=== PATIENT | female | born 1965 | race Caucasian/White ===

== ENCOUNTER → 2019-12-18 08:43 | Outpatient (BNV) | payer BC, OTHER, SELFPAY | PROVIDERS: PCP Internal Medicine; Visit Provider Internal Medicine Medical Oncology | DX: Z85.3 Personal history of malignant neoplasm of breast (principal) | CPT/HCPCS: 99213; 99214 ==

== ENCOUNTER 2020-01-04 13:32 | Outpatient (REF) | payer BC, SELFPAY ==
--- NOTE | 2020-01-04 13:37 | MM_ITS ---
EXAMINATION: BONE DENSITOMETRY CLINICAL INDICATION: Osteopenia. COMPARISON: Previous BD dated 08/02/2017 and baseline BD dated 11/07/2012. TECHNIQUE: Using a [employer] DXA System (software version: 13.1) manufactured by [employer], dual-energy x-ray absorptiometry was performed of the lumbar spine and left hip. The images are of good technical quality. Summary results are attached. FINDINGS: AP SPINE L1-L4: Current: BMD 1.258 g/cm2, Z-score 0.7, T-score 0.6, normal, 4.8% increase from previous, 0.6% increase from baseline (<5% change is not significant). Prior: BMD 1.200 g/cm2. Baseline: BMD 1.251 g/cm2. LEFT FEMUR, NECK: Current: BMD 0.836 g/cm2, Z-score -0.9, T-score -1.5, osteopenia. Prior: BMD 0.829 g/cm2. Baseline: BMD 0.871 g/cm2. LEFT FEMUR, TOTAL: Current: BMD 0.848 g/cm2, Z-score -1.1, T-score -1.3, osteopenia, 1.9% increase from previous, 0.4% decrease from baseline (<5% change is not significant). Prior: BMD 0.832 g/cm2. Baseline: BMD 0.851 g/cm2. IDENTIFIED RISK FACTORS: None listed. HISTORY OF FRACTURE: None listed. MEDICATIONS: Vitamin D. MM/XR DEXA axial skeleton IMPRESSION: 1. DIAGNOSIS: Osteopenia based on the lowest T-score value of -1.5 in the femoral neck applying World Health Organization criteria. 2. 10-YEAR FRACTURE RISK PREDICTION, FRAX: Major osteoporotic fracture (clinical spine, forearm, hip or shoulder) 6.4%. Hip fracture 0.5%. 3. Treatment Recommendations: NOF guidelines recommend consideration for treatment in postmenopausal women and men age 50 and older presenting with the following: -A hip or vertebral (clinical or morphometric) fracture. -T-score less than or equal to -2.5 at the femoral neck or spine after appropriate evaluation to exclude secondary causes. -Low bone mass at the hip or spine and a 10-year fracture probability by FRAX of greater than or equal to 3% for hip fracture or greater than or equal to 20% for major osteoporotic fracture based on the [place] adapted WHO algorithm. 4. Other Recommendations: All treatment decisions require clinical judgment and consideration of individual patient factors, including patient preferences, comorbidities, previous drug use, risk factors not captured in the FRAX model (e.g. frailty, falls, vitamin D deficiency, increased bone turnover, interval significant decline in bone density) and possible under or overestimation of fracture risk by FRAX. Additional medical evaluation for secondary cause of low bone mineral density may be appropriate. FUTURE SCAN RECOMMENDATION: People with diagnosed cases of osteoporosis or at high risk for fracture should have regular bone mineral density tests. For patients eligible for Medicare, routine testing is allowed once every 2 years. The testing frequency can be increased to one year for patients who have rapidly progressing disease, those who are receiving or discontinuing medical therapy to restore bone mass, or have additional risk factors.
--- NOTE | 2020-01-04 13:38 | MM_ITS ---
EXAMINATION: MM SCREENING DIGITAL BREAST TOMOSYNTHESIS, BILATERAL CLINICAL INFORMATION: Screening. Asymptomatic. Previous left breast lumpectomy COMPARISON: Mammography: August 15, 2018 and studies dating back to June 21, 2012 TECHNIQUE: Digital breast tomosynthesis is performed in both the craniocaudal and mediolateral oblique views along with computer-aided detection (CAD). Synthesized 2D images are generated from the tomosynthesis. FINDINGS: There are scattered areas of fibroglandular density (ACR BI-RADS breast composition Category b). Region of architectural distortion from previous lumpectomy is seen upper outer aspect of the left breast. No new abnormal dominant mass or suspicious grouping of microcalcifications identified. MM/MM tomosynthesis screening BI IMPRESSION: There are no significant changes from prior study. ASSESSMENT: BI-RADS 2: Benign RECOMMENDATION: Routine annual mammography screening. This patient's information was entered into a reminder system with a target due date for their next mammogram.
== END 2020-01-04 13:33 | disposition home or self-care (01) ==
LOC: HO.MAMMO 13:32
PROVIDERS: PCP Internal Medicine; Visit Provider Internal Medicine Medical Oncology
DX: M85.89 Other specified disorders of bone density and structure, multiple sites (principal)
CPT/HCPCS: 77063; 77067; 77080

== ENCOUNTER 2020-05-29 14:30 | Inpatient (IN) | payer OTHER, SELFPAY ==
[2020-05-29] VITALS (8 sets, daily range): BP systolic 118–202; BP diastolic 80–110; PULSE 54–118; RESP 16–18; TEMP 36.3–36.6; O2SAT 95–99; BMI 27.2
--- NOTE | ~2020-05-29 | MR_ITS ---
EXAMINATION: MR BRAIN WITHOUT AND WITH CONTRAST CLINICAL INFORMATION: Right frontoparietal cortical lesion on CT scan. COMPARISON: CT angiogram of the head and neck 05/29/2020. TECHNIQUE: Multiplanar MR imaging of the brain was performed without and with contrast. A total of 9 mL Gadavist was utilized for this examination. FINDINGS: There are scattered nonspecific foci of T2 FLAIR signal hyperintensity within the periventricular white matter. A collection of a few somewhat prominent perivascular spaces are visualized within the basal ganglia. No acute territorial infarct. No pathological magnetic susceptibility artifact. Intracranial vascular flow voids are maintained. Postcontrast images reveal no abnormal mass or enhancement within the intracranial compartment. No intracranial mass effect or midline shift. Lateral and third ventricles are proportionate to the subarachnoid spaces. No hydrocephalus. Midline structures including the cervicomedullary junction are normal. No acute bone marrow signal changes. There is a small right mastoid tip effusion. Mild paranasal sinus disease primarily affecting the ethmoid air cells. Globes and orbits are symmetric. MR/MR head/brain wo/w con IMPRESSION: There are scattered chronic small vessel ischemic changes within the periventricular white matter. Otherwise unremarkable examination. No evidence of acute territorial infarct or hemorrhage. No abnormal intracranial mass or enhancement.
--- NOTE | ~2020-05-29 | CT_ITS ---
EXAMINATION: CT ANGIOGRAM OF THE HEAD CT ANGIOGRAM OF THE NECK CLINICAL INFORMATION: Dizziness. Assess for stroke. COMPARISON: CT scan of the head 08/19/2015. TECHNIQUE: A noncontrast CT scan of the head was obtained. Test bolus series followed by intravenous administration 70 mL of Omnipaque 350. Helical imaging was performed in the axial plane from the mediastinum to the skull vertex. The degree of stenosis is based off NASCET criteria. The data was processed at the generation technologist workstation for generation of MIP images. Three-dimensional volume rendered reformatted images were also generated at an offline 3-D workstation. This CT examination was performed using dose optimization techniques as appropriate, variously including the following: *Automated exposure control *Adjustment of mA and/or kV according to patient size (this includes techniques or standardized protocols for targeted exams where dose is matched to indication/reason for exam; i.e. extremities or head) *Use of iterative reconstruction technique DLP: 2377 mGy-cm. FINDINGS: CT Head: There is no evidence of acute intracranial hemorrhage or territorial infarction. No abnormal mass-effect or midline shift is seen. Fernandes to white matter differentiation is well preserved. No extra-axial fluid collections are identified. There is no abnormal enhancement. The ventricles and sulci appear normal. There are areas of low-attenuation in the right basal ganglia, consistent with multiple prominent perivascular spaces versus lacunar infarcts; these were present on the prior study. The osseous structures and soft tissues are normal. The mastoid air cells and visualized portions of the paranasal sinuses are well-aerated. CTA Neck: There is a classic configuration of the arch of the aorta. Evaluation of the thoracic inlet is degraded by beam hardening artifact from dense contrast in the left brachiocephalic and subclavian veins. Superior to this the common carotid arteries are patent bilaterally. The carotid bifurcations appear normal. The cervical internal carotid arteries are slightly tortuous, but have uniform caliber and are patent throughout the neck. The origins of both vertebral arteries are well-demonstrated. The left vertebral artery is dominant. Both vertebral arteries are patent throughout their cervical course. Nonvascular: The visualized lung cunha are well-aerated. The thyroid gland appears normal. There is no cervical lymphadenopathy. There is a 0.5 cm calcification in the left floor of mouth anteriorly, which may be consistent with a sialolith. There is a degenerative anterolisthesis of C3 on C4. There are multilevel spondylitic and facet arthropathic changes in the cervical spine. There are degenerative changes of the bilateral temporomandibular joints. CTA Head: In the anterior circulation, the distal internal carotid arteries within the neck appear normal. The intracranial internal carotid arteries and their bifurcations appear normal. The middle and anterior cerebral arteries bilaterally demonstrate normal caliber with no evidence of focal stenosis, aneurysm or vascular malformation. There is normal arborization of the middle cerebral artery branches. The anterior communicating artery is normal. In the posterior circulation, the left vertebral artery is dominant. The nondominant right vertebral artery ends primarily in the PICA, with a thin but uniform caliber artery extending to the basilar artery. The basilar artery appears normal. The posterior cerebral arteries have normal caliber. The venous sinuses opacify normally. CT/CT angio head neck IMPRESSION: CT head and neck: 1. There are no acute bleeds or infarcts. There are no masses or areas of abnormal enhancement. 2. There is a 0.5 cm calcification in the left floor of mouth, which may be consistent with a sialolith. 3. There are multilevel spondylitic and facet arthropathic changes in the cervical spine. There are degenerative changes of the bilateral temporomandibular joints. CTA head and neck: 1. There are no flow-limiting stenoses or atheromatous calcifications in the cervical vascular structures. 2. Intracranially the right vertebral artery is relatively thin, and ends in the PICA. 3. There are no focal stenoses, aneurysms or vascular malformations.
[2020-05-29 16:32] LABS: Basophils Percent Auto 0.5 % (0-2); Hemoglobin 14.1 g/dl (12.0-16.0); Imm Gran Abs Auto 0.02 X10*3/uL (0.00-0.03); Imm Gran Pct Auto 0.3 % (0.0-0.4); Lymphocytes Absolute Auto 0.3 X10*3/uL (1.2-4.9); MANUAL DIFF FLAG SCAN; Mean Corpuscular HGB Conc 33.6 g/dl (31.0-35.0); Mean Corpuscular Volume 83.5 fL (80-98); Mean Platelet Volume 10.6 fL (9.4-12.3); Monocytes Absolute Auto 0.2 X10*3/uL (0.1-1.2); Monocytes Percent Auto 3.1 % (2-11); Neutrophils Absolute Auto 5.7 X10*3/uL (2.0-8.3); Neutrophils Percent Auto 91.1 % (45-73); Platelet Count 165 X10*3/uL (160-400); Red Blood Count 5.03 X10*6/uL (4.20-5.50); Red Cell Distribution Width 13.2 % (11.0-16.0); SCAN SMEAR FLAG 1; White Blood Count 6.2 X10*3/uL (4.8-10.8)
[2020-05-29 16:49] LABS: SLIDE REVIEW VERIFIED
[2020-05-29 16:52] LABS: Alanine Aminotransferase 21 U/L (0-31); Albumin Level 4.3 g/dL (3.5-5.0); Alkaline Phosphatase 61 U/L (39-117); Anion Gap 13 (12-20); Aspartate Amino Transferase 21 U/L (5-31); Bilirubin Total 0.8 mg/dL (0.0-1.0); Blood Urea Nitrogen 14 mg/dL (9-16); Carbon Dioxide 22 mmol/L (22-29); Chloride 103 mmol/L (96-108); Creatinine Clr Calc Pharmacy 106.8; Estimated Glomerular Filt Rate > 60; Glucose Random 129 mg/dL (60-115); Potassium 4.3 mmol/L (3.3-5.1); Sodium 134 mmol/L (135-145); Total Protein 7.6 g/dL (6.5-8.0)
[2020-05-29 16:58] LABS: Troponin-I High Sensitivity < 3.5 ng/L (<3.5-17.0)
[2020-05-29 17:02] LABS: Prothrombin Time 11.7 SEC (10.8-13.0)
[2020-05-29] MEDS: Meclizine HCl 25 MG TABLET 50 MG PO (18:52)
[2020-05-29] MEDS: 0.9 % Sodium Chloride 1,000 ML 999 ML IV ×2 (18:53→20:52)
[2020-05-29] MEDS: Metoclopramide HCl 10 MG/2 ML VIAL IVPUSH (18:53)
--- NOTE | 2020-05-29 18:56 | PC.NURSE ---
pt a&ox3, iv inserted, orthostats performed, playground monitor nsr to st- [id number] at times, vitals stable, medicated per order, call painting within reach, will continue to monitor.
--- NOTE | 2020-05-29 19:34 | PC.NURSE ---
Pt using commode at this time, with 1 assist from staff. Reports dizziness, but also reports that dizziness has decreased after being medicated and isn't as bad as it was before . Urine specimen to be collected and sent for analysis. Repeat bloodwork to also be collected.
[2020-05-29 19:47] LABS: Basophils Percent Auto 0.4 % (0-2); Hematocrit 41.6 % (37-47); Hemoglobin 13.8 g/dl (12.0-16.0); Imm Gran Abs Auto 0.01 X10*3/uL (0.00-0.03); Imm Gran Pct Auto 0.2 % (0.0-0.4); Lymphocytes Absolute Auto 0.3 X10*3/uL (1.2-4.9); Lymphocytes Percent Auto 5.9 % (20-40); MANUAL DIFF FLAG SCAN; Mean Corpuscular HGB Conc 33.2 g/dl (31.0-35.0); Mean Corpuscular Hemoglobin 27.7 pg (27.0-33.0); Mean Corpuscular Volume 83.5 fL (80-98); Mean Platelet Volume 10.5 fL (9.4-12.3); Monocytes Absolute Auto 0.1 X10*3/uL (0.1-1.2); Monocytes Percent Auto 2.9 % (2-11); Neutrophils Absolute Auto 4.4 X10*3/uL (2.0-8.3); Neutrophils Percent Auto 90.6 % (45-73); Platelet Count 159 X10*3/uL (160-400); Red Blood Count 4.98 X10*6/uL (4.20-5.50); Red Cell Distribution Width 13.2 % (11.0-16.0); SCAN SMEAR FLAG 1; White Blood Count 4.9 X10*3/uL (4.8-10.8)
[2020-05-29 19:52] LABS: Glucose Urine UA NEG (NEG); Leukocyte Esterase Urine NEG (NEG); Nitrite Urine NEG (NEG); PH 6.5 (5.0-8.0); Specific Gravity - Urine 1.025 (1.005-1.025); Urine Blood NEG (NEG); Urine Ketones NEG (NEG); Urine Protein NEG (NEG-TRACE)
[2020-05-29 19:54] LABS: Appearance Urine CLEAR; Color Urine YELLOW
[2020-05-29 19:56] LABS: Prothrombin Time 11.9 SEC (10.8-13.0)
[2020-05-29 20:07] LABS: Alanine Aminotransferase 23 U/L (0-31); Albumin Level 4.1 g/dL (3.5-5.0); Alkaline Phosphatase 57 U/L (39-117); Anion Gap 14 (12-20); Aspartate Amino Transferase 19 U/L (5-31); Bilirubin Total 0.8 mg/dL (0.0-1.0); Blood Urea Nitrogen 13 mg/dL (9-16); Calcium 8.6 mg/dL (8.4-10.2); Carbon Dioxide 22 mmol/L (22-29); Chloride 105 mmol/L (96-108); Creatinine Clr Calc Pharmacy 114.8; Estimated Glomerular Filt Rate > 60; Glucose Random 111 mg/dL (60-115); Magnesium 1.9 mg/dL (1.6-2.6); Sodium 137 mmol/L (135-145); Total Protein 7.1 g/dL (6.5-8.0)
[2020-05-29 20:12] LABS: Troponin-I High Sensitivity < 3.5 ng/L (<3.5-17.0)
--- NOTE | 2020-05-29 20:30 | ECG_ITS ---
Test Reason : WEAK Blood Pressure : / mmHG Vent. Rate : 080 BPM Atrial Rate : 080 BPM P-R Int : 162 ms QRS Dur : 088 ms QT Int : 418 ms P-R-T Axes : 054 010 052 degrees QTc Int : 482 ms Normal sinus rhythm Cannot rule out Anterior infarct , age undetermined Abnormal ECG When compared with ECG of 04-JUN-2010 07:18, Vent. rate has increased BY 28 BPM Referred By: Fer Crawford Electronically Signed By:NATHANAEL MILES MD
[2020-05-29] MEDS: ondansetron HCL 4 MG/2 ML VIAL IVPUSH (20:52)
--- NOTE | 2020-05-29 21:21 | ED.DIZZY ---
HPI - Dizziness General Chief Complaint: Dizziness Stated Complaint: DIZZY/VERTIGO Time Seen by Provider: 05/29/20 17:48 Source: patient Mode of arrival: ambulatory Limitations: no limitations History of Present Illness HPI Narrative: Patient presents to ED for 3 days of dizziness that have worsened today. Patient states not able to ambulate on her own. Patient describes the dizziness as the room spinning. She states known history of vertigo but not on any medication. Patient states also history of many brain stroke. Patient denies any head trauma. Related Data Home Medications Medication Instructions Recorded Confirmed aspirin 81 mg PO DAILY 12/18/19 12/18/19 ferrous sulfate 325 mg PO DAILY 12/18/19 12/18/19 Previous Rx's Medication Instructions Recorded levothyroxine 150 mcg tablet 150 mcg PO DAILY 90 Days #90 tab 01/02/20 citalopram 20 mg tablet 20 mg PO DAILY #90 tab 05/04/20 metoprolol succinate 25 mg 25 mg PO DAILY #30 tab 05/16/20 tablet,extended release 24 hr meclizine 25 mg tablet 25 mg PO TID PRN 30 Days #90 tab 05/29/20 Allergies Allergy/AdvReac Type Severity Reaction Status Date / Time No Known Allergies Allergy Verified 05/29/20 16:24 Review of Systems Review of Systems: Yes all other systems are reviewed and are negative Constitutional: Constitutional: Reports as per HPI and Reports no additional constitutional complaints Eyes: Eyes: Reports as per HPI and Reports no additional eye complaints ENT: Reports system reviewed and no additional complaints, except as documented, Reports as per HPI, Reports vertigo and Reports dizziness Cardiovascular: Cardiovascular: Reports as per HPI and Reports no additional cardiovascular complaints Respiratory: Respiratory: Reports as per HPI and Reports no additional respiratory complaints Gastrointestinal: Gastrointestinal: Reports as per HPI and Reports no additional gastrointestinal complaints Genitourinary: Genitourinary: Reports no additional female genitourinary complaints and Reports as per HPI Musculoskeletal: Musculoskeletal: Reports no additional musculoskeletal complaints and Reports as per HPI Neurologic: Reports system reviewed and no additional complaints, except as documented, Reports as per HPI, Reports vertigo and Reports dizziness Psychiatric: Psychiatric: Reports no additional psychiatric complaints and Reports as per HPI PMFSH Past Medical History Medical History (Updated 05/29/20 @ 21:26 by Alfred Terry MD) Benign tumor of thyroid gland Depression Hypertension Family History Family History (Updated 12/18/19 @ 10:01 by Aunm Man MD) Other Heart disease Social History Social History Alcohol intake: former Smoking Status: Never smoker Smoked in Last 30 Days: No Use of substances other than those prescribed or required for medical reasons: No Advance Directives: No Advance Directives Information Provided: Yes Current occupational status: employed 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 She is . She has 3 children. Physical Exam Vital Signs: Vital Signs: Last Vital Signs Temp 97.9 F 05/29/20 18:00 Pulse 103 H 05/29/20 20:42 Resp 18 05/29/20 20:41 BP 146/100 H 05/29/20 20:42 Pulse Ox 98 05/29/20 20:41 Body Mass Index 27.2 Const: General: cooperative, healthy appearing, comfortable, no acute distress, well developed, alert, awake and Physically active HENMT: Head: Yes normal to inspection, Yes No palpable skull fracture present, Yes normocephalic, Yes atraumatic and No abrasion Eyes: General: appearance normal, both eyes and all related structures Neck: Other: Negative for nystagmus Neck: Yes normal visual inspection, Yes full ROM, Yes no lymphadenopathy, Yes no meningeal signs, Yes trachea midline, Yes supple and No tender Chest: Chest palpation & inspection: normal inspection of the chest and normal palpation of entire chest wall Resp: Effort & Inspection: normal respiratory effort and able to speak in complete sentences Auscultation: clear to auscultation bilaterally Cardio: Jugular venous distension: no JVD Heart sounds: S1 normal heart sound present and S2 normal heart sound present GI: Inspection: Yes normal to inspection and No abdominal wall ecchymosis Palpation (GI): Soft to palpation, not firm, nontender, no guarding and not rigid : General: No CVA tenderness and Yes no CVA tenderness Back/Spine/Pelvis: Back: no CVA tenderness, No CVA tenderness and No back tenderness Skin: General skin exam: no rashes or lesions noted and elasticity normal Neuro: Other: Negative for facial droop. Negative slurred speech. Negative pronator drift. All extremities equal strength and 5+. [id number] rapid hand movement intact. Negative for any focal deficits General: no meningeal signs Extrem: General: Yes normal to inspection and Yes full ROM Psych: Appearance: grossly normal, well kempt and not disheveled Course Course Course Narrative: Although patient's out the window she will have a head CT ATC does emboli in the neck. Symptoms indicate vertigo but will send patient for his CTA. Patient also have a cardiac evaluation. Reevaluation(s) Reevaluation #1: Patient EKG negative for STEMI. Troponins negative. Patient electrolytes at baseline. Patient's head CT came back negative for any embolize of stroke. Patient states she still not feeling better. Patient unable to stand. Patient unable to complete 2nd orthostatics. Case presented to hospitalist for admission for further evaluation such as possible MRI. Patient given IV fluids. Patient's UA negative for UTI MDM - Dizziness MDM Narrative Medical decision making narrative: Dizziness Lab Data Result diagrams: 05/29/20 19:37 05/29/20 19:37 Labs: Lab Results 05/29/20 05/29/20 05/29/20 Range/Units 16:25 16:25 16:25 WBC 6.2 (4.8-10.8) X10*3/uL RBC 5.03 (4.20-5.50) X10*6/uL Hgb 14.1 (12.0-16.0) g/dl Hct 42.0 (37-47) % MCV 83.5 (80-98) fL MCH 28.0 (27.0-33.0) pg MCHC 33.6 (31.0-35.0) g/dl RDW 13.2 (11.0-16.0) % Plt Count 165 (160-400) X10*3/uL MPV 10.6 (9.4-12.3) fL Immature Gran % (Auto) 0.3 (0.0-0.4) % Neut % (Auto) 91.1 H (45-73) % Lymph % (Auto) 5.0 L (20-40) % [place] % (Auto) 3.1 (2-11) % Eos % (Auto) 0.0 (0-4) % Baso % (Auto) 0.5 (0-2) % Lymph # (Auto) 0.3 L (1.2-4.9) X10*3/uL [place] # (Auto) 0.2 (0.1-1.2) X10*3/uL Eos # (Auto) 0.0 (0.0-0.4) X10*3/uL Baso # (Auto) 0.0 (0.0-0.2) X10*3/uL Abs Immat Gran (auto) 0.02 (0.00-0.03) X10*3/uL Absolute Neuts (auto) 5.7 (2.0-8.3) X10*3/uL Absolute Nucleated RBC 0.000 (0.0-0.012) X10*3/uL Nucleated RBC % (auto) 0.0 (0.0-0.2) /100WBC Smear Tech's Comments VERIFIED PT 11.7 (10.8-13.0) SEC INR 1.0 (0.9-1.1) APTT (24.1-38.0) SEC Sodium 134 L (135-145) mmol/L Potassium 4.3 (3.3-5.1) mmol/L Chloride 103 (96-108) mmol/L Carbon Dioxide 22 (22-29) mmol/L Anion Gap 13 (12-20) BUN 14 (9-16) mg/dL Creatinine 0.71 (0.5-1.4) mg/dL Estim Creat Clear Calc 106.8 Estimated GFR > 60 Random Glucose 129 H (60-115) mg/dL Calcium 9.0 (8.4-10.2) mg/dL Magnesium (1.6-2.6) mg/dL Total Bilirubin 0.8 (0.0-1.0) mg/dL AST 21 D (5-31) U/L ALT 21 (0-31) U/L Alkaline Phosphatase 61 (39-117) U/L Troponin I High Sens (<3.5-17.0) ng/L Total Protein 7.6 (6.5-8.0) g/dL Albumin 4.3 (3.5-5.0) g/dL Urine Color Urine Appearance Urine pH (5.0-8.0) Ur Specific [place] (1.005-1.025) Urine Protein (NEG-TRACE) MG/DL Urine Glucose (UA) (NEG) MG/DL Urine Ketones (NEG) MG/DL Urine Blood (NEG) Urine Nitrite (NEG) Ur Leukocyte Esterase (NEG) 03/18/21 03/18/21 03/18/21 Range/Units 16:25 19:37 19:37 WBC 4.9 (4.8-10.8) X10*3/uL RBC 4.98 (4.20-5.50) X10*6/uL Hgb 13.8 (12.0-16.0) g/dl Hct 41.6 (37-47) % MCV 83.5 (80-98) fL MCH 27.7 (27.0-33.0) pg MCHC 33.2 (31.0-35.0) g/dl RDW 13.2 (11.0-16.0) % Plt Count 159 L (160-400) X10*3/uL MPV 10.5 (9.4-12.3) fL Immature Gran % (Auto) 0.2 (0.0-0.4) % Neut % (Auto) 90.6 H (45-73) % Lymph % (Auto) 5.9 L (20-40) % [place] % (Auto) 2.9 (2-11) % Eos % (Auto) 0.0 (0-4) % Baso % (Auto) 0.4 (0-2) % Lymph # (Auto) 0.3 L (1.2-4.9) X10*3/uL [place] # (Auto) 0.1 (0.1-1.2) X10*3/uL Eos # (Auto) 0.0 (0.0-0.4) X10*3/uL Baso # (Auto) 0.0 (0.0-0.2) X10*3/uL Abs Immat Gran (auto) 0.01 (0.00-0.03) X10*3/uL Absolute Neuts (auto) 4.4 (2.0-8.3) X10*3/uL Absolute Nucleated RBC 0.000 (0.0-0.012) X10*3/uL Nucleated RBC % (auto) 0.0 (0.0-0.2) /100WBC Smear Tech's Comments PT (10.8-13.0) SEC INR (0.9-1.1) APTT (24.1-38.0) SEC Sodium (135-145) mmol/L Potassium (3.3-5.1) mmol/L Chloride (96-108) mmol/L Carbon Dioxide (22-29) mmol/L Anion Gap (12-20) BUN (9-16) mg/dL Creatinine (0.5-1.4) mg/dL Estim Creat Clear Calc Estimated GFR Random Glucose (60-115) mg/dL Calcium (8.4-10.2) mg/dL Magnesium (1.6-2.6) mg/dL Total Bilirubin (0.0-1.0) mg/dL AST (5-31) U/L ALT (0-31) U/L Alkaline Phosphatase (39-117) U/L Troponin I High Sens < 3.5 (<3.5-17.0) ng/L Total Protein (6.5-8.0) g/dL Albumin (3.5-5.0) g/dL Urine Color YELLOW Urine Appearance CLEAR Urine pH 6.5 (5.0-8.0) Ur Specific [place] 1.025 (1.005-1.025) Urine Protein NEG (NEG-TRACE) MG/DL Urine Glucose (UA) NEG (NEG) MG/DL Urine Ketones NEG (NEG) MG/DL Urine Blood NEG (NEG) Urine Nitrite NEG (NEG) Ur Leukocyte Esterase NEG (NEG) 05/29/20 05/29/20 05/29/20 Range/Units 19:37 19:37 19:37 WBC (4.8-10.8) X10*3/uL RBC (4.20-5.50) X10*6/uL Hgb (12.0-16.0) g/dl Hct (37-47) % MCV (80-98) fL MCH (27.0-33.0) pg MCHC (31.0-35.0) g/dl RDW (11.0-16.0) % Plt Count (160-400) X10*3/uL MPV (9.4-12.3) fL Immature Gran % (Auto) (0.0-0.4) % Neut % (Auto) (45-73) % Lymph % (Auto) (20-40) % [place] % (Auto) (2-11) % Eos % (Auto) (0-4) % Baso % (Auto) (0-2) % Lymph # (Auto) (1.2-4.9) X10*3/uL [place] # (Auto) (0.1-1.2) X10*3/uL Eos # (Auto) (0.0-0.4) X10*3/uL Baso # (Auto) (0.0-0.2) X10*3/uL Abs Immat Gran (auto) (0.00-0.03) X10*3/uL Absolute Neuts (auto) (2.0-8.3) X10*3/uL Absolute Nucleated RBC (0.0-0.012) X10*3/uL Nucleated RBC % (auto) (0.0-0.2) /100WBC Smear Tech's Comments PT 11.9 (10.8-13.0) SEC INR 1.0 (0.9-1.1) APTT 32.0 (24.1-38.0) SEC Sodium 137 (135-145) mmol/L Potassium 4.0 (3.3-5.1) mmol/L Chloride 105 (96-108) mmol/L Carbon Dioxide 22 (22-29) mmol/L Anion Gap 14 (12-20) BUN 13 (9-16) mg/dL Creatinine 0.66 (0.5-1.4) mg/dL Estim Creat Clear Calc 114.8 Estimated GFR > 60 Random Glucose 111 (60-115) mg/dL Calcium 8.6 (8.4-10.2) mg/dL Magnesium 1.9 (1.6-2.6) mg/dL Total Bilirubin 0.8 (0.0-1.0) mg/dL AST 19 (5-31) U/L ALT 23 (0-31) U/L Alkaline Phosphatase 57 (39-117) U/L Troponin I High Sens < 3.5 (<3.5-17.0) ng/L Total Protein 7.1 (6.5-8.0) g/dL Albumin 4.1 (3.5-5.0) g/dL Urine Color Urine Appearance Urine pH (5.0-8.0) Ur Specific [place] (1.005-1.025) Urine Protein (NEG-TRACE) MG/DL Urine Glucose (UA) (NEG) MG/DL Urine Ketones (NEG) MG/DL Urine Blood (NEG) Urine Nitrite (NEG) Ur Leukocyte Esterase (NEG) ECG Data Interpretation: Normal sinus rhythm. Ventricular rate 80. Pr interval 162. QRS 88. QTC 482. Negative STEMI Discharge Plan Discharge Clinical Impression: Dizziness Patient Disposition: Admitted As Inpatient
--- NOTE | 2020-05-29 21:21 | PM.IMHP ---
History of Present Illness Date of Service: 05/29/20 Chief Complaint: Dizziness 55-year-old female with a past medical history of hypertension, hyperlipidemia, history of vertigo, anemia, history of breast cancer, benign thyroid tumor, CVA, anxiety, depression presented to the hospital with a chief complaint a of dizziness. Patient mentioned that she has been having dizziness for the past 3 days, appears room spinning, associated nausea, denies any falls or head strike. Denies any loss of consciousness. Denies any seizure-like activity. Mentioned that current symptoms are similar to the prior episodes of vertigo. Also says that she had note of which reason and has not taken it; Today she had severe symptoms hence decided to come to the ER for further help. Denies any chest pain. Denies any numbness tingling. Denies any focal weakness. Denies any symptoms. Review of all other systems is negative except mentioned above ER course: Per ER team patient exam was nonfocal, cerebellar signs intact, patient on getting up from the bed for orthostatics felt dizzy; orthostatics were negative; given Reglan, meclizine, IV fluids. Admitted for further management. Also mentioned that he EKG negative, CT angio head and neck negative. 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 She is . She has 3 children. Meds Allergies Allergy/AdvReac Type Severity Reaction Status Date / Time No Known Allergies Allergy Verified 05/29/20 16:24 Active Medications: Current Medications Generic Name Dose Route Start Last Admin Trade Name Freq PRN Reason Stop Dose Admin Acetaminophen 650 mg 05/29/20 21:18 Acetaminophen 325 Mg Tablet PO Q6H PRN Pain, Mild (Pain Scale 1-3) Heparin Sodium (Porcine) 5,000 unit 05/29/20 21:30 Heparin Sodium,Porcine 5,000 Unit/Ml Vial SUBCUT Q12H JANELLE Sodium Chloride 1,000 mls @ 100 mls/hr 05/29/20 21:30 Ns IVCONT .Q10H [facility] Sodium Chloride 3 ml 05/30/20 00:00 0.9 % Sodium Chloride Flush 3 Ml Syringe IVFLUSH QSHIFT [facility] Home Medications Medication Instructions Recorded Confirmed Last Taken Type aspirin 81 mg PO DAILY 05/29/20 05/29/20 05/28/20 History levothyroxine 150 mcg PO DAILY@0630 05/29/20 05/29/20 05/28/20 History Physical Exam Vital Signs and Narrative: Vital Signs: Last Vital Signs Temp 97.9 F 05/29/20 18:00 Pulse 103 H 05/29/20 20:42 Resp 18 05/29/20 20:41 BP 146/100 H 05/29/20 20:42 Pulse Ox 98 05/29/20 20:41 Body Mass Index 27.2 Gen: Appears be in no acute distress HEENT: NCAT, Moist mucosa. No nystagmus Pulmonary: Vesicular breath sounds, fair air entry CVS: Normal S1-S2 Abdomen: BS+, Soft, Nontender Extremities: Warm well perfused Neuro: Alert and awake. Grossly nonfocal. Cerebellar signs intact. Results Labs CBC and Chem 7: 05/30/20 08:09 05/30/20 08:09 Labs: Laboratory Results - last 24 hr 05/29/20 05/29/20 05/29/20 16:25 16:25 16:25 MCV 83.5 MCH 28.0 MCHC 33.6 RDW 13.2 Plt Count 165 MPV 10.6 Immature Gran % (Auto) 0.3 Neut % (Auto) 91.1 H Lymph % (Auto) 5.0 L [place] % (Auto) 3.1 Eos % (Auto) 0.0 Baso % (Auto) 0.5 Lymph # (Auto) 0.3 L [place] # (Auto) 0.2 Eos # (Auto) 0.0 Baso # (Auto) 0.0 Abs Immat Gran (auto) 0.02 Absolute Neuts (auto) 5.7 Absolute Nucleated RBC 0.000 Nucleated RBC % (auto) 0.0 Smear Tech's Comments VERIFIED PT 11.7 INR 1.0 APTT Anion Gap 13 Estim Creat Clear Calc 106.8 Estimated GFR > 60 Random Glucose 129 H Calcium 9.0 Magnesium Total Bilirubin 0.8 AST 21 D ALT 21 Alkaline Phosphatase 61 Troponin I High Sens Total Protein 7.6 Albumin 4.3 Urine Color Urine Appearance Urine pH Ur Specific [place] Urine Protein Urine Glucose (UA) Urine Ketones Urine Blood Urine Nitrite Ur Leukocyte Esterase 05/29/20 05/29/20 05/29/20 16:25 19:37 19:37 MCV 83.5 MCH 27.7 MCHC 33.2 RDW 13.2 Plt Count 159 L MPV 10.5 Immature Gran % (Auto) 0.2 Neut % (Auto) 90.6 H Lymph % (Auto) 5.9 L [place] % (Auto) 2.9 Eos % (Auto) 0.0 Baso % (Auto) 0.4 Lymph # (Auto) 0.3 L [place] # (Auto) 0.1 Eos # (Auto) 0.0 Baso # (Auto) 0.0 Abs Immat Gran (auto) 0.01 Absolute Neuts (auto) 4.4 Absolute Nucleated RBC 0.000 Nucleated RBC % (auto) 0.0 Smear Tech's Comments PT INR APTT Anion Gap Estim Creat Clear Calc Estimated GFR Random Glucose Calcium Magnesium Total Bilirubin AST ALT Alkaline Phosphatase Troponin I High Sens < 3.5 Total Protein Albumin Urine Color YELLOW Urine Appearance CLEAR Urine pH 6.5 Ur Specific [place] 1.025 Urine Protein NEG Urine Glucose (UA) NEG Urine Ketones NEG Urine Blood NEG Urine Nitrite NEG Ur Leukocyte Esterase NEG 05/29/20 05/29/20 05/29/20 19:37 19:37 19:37 MCV MCH MCHC RDW Plt Count MPV Immature Gran % (Auto) Neut % (Auto) Lymph % (Auto) [place] % (Auto) Eos % (Auto) Baso % (Auto) Lymph # (Auto) [place] # (Auto) Eos # (Auto) Baso # (Auto) Abs Immat Gran (auto) Absolute Neuts (auto) Absolute Nucleated RBC Nucleated RBC % (auto) Smear Tech's Comments PT 11.9 INR 1.0 APTT 32.0 Anion Gap 14 Estim Creat Clear Calc 114.8 Estimated GFR > 60 Random Glucose 111 Calcium 8.6 Magnesium 1.9 Total Bilirubin 0.8 AST 19 ALT 23 Alkaline Phosphatase 57 Troponin I High Sens < 3.5 Total Protein 7.1 Albumin 4.1 Urine Color Urine Appearance Urine pH Ur Specific [place] Urine Protein Urine Glucose (UA) Urine Ketones Urine Blood Urine Nitrite Ur Leukocyte Esterase Imaging Radiologist's Impressions: Impressions Head/Neck CTA 05/29/20 18:42 IMPRESSION: CT head and neck: 1. There are no acute bleeds or infarcts. There are no masses or areas of abnormal enhancement. 2. There is a 0.5 cm calcification in the left floor of mouth, which may be consistent with a sialolith. 3. There are multilevel spondylitic and facet arthropathic changes in the cervical spine. There are degenerative changes of the bilateral temporomandibular joints. CTA head and neck: 1. There are no flow-limiting stenoses or atheromatous calcifications in the cervical vascular structures. 2. Intracranially the right vertebral artery is relatively thin, and ends in the PICA. 3. There are no focal stenoses, aneurysms or vascular malformations. Assessment and Plan (1) Dizziness: Status: Acute 55-year-old female with a past medical history of hypertension, hyperlipidemia, hypothyroidism, vertigo., CVA, breast cancer, anxiety, depression presented to the hospital with a chief complaint of dizziness. Vertigo/dizziness: No nystagmus. And associated nausea. Denies any falls. Exam nonfocal. CT head showed no acute findings. Meclizine p.r.n. Fall precautions Neurology consult for further recommendations/MRI if needed. PT/OT eventually; Hypertension/hyperlipidemia: Continue home medications: Hypothyroidism: Continue levothyroxine DVT prophylaxis: Subcu heparin code status: Full code
[2020-05-29 22:03] LABS: COVID-19 Test Negative (Negative)
[2020-05-29] MEDS: 0.9 % Sodium Chloride 1,000 ML 100 ML IVCONT (22:39)
[2020-05-29] MEDS: Heparin Sodium,Porcine 5,000 UNIT/ML VIAL 5000 UNIT SUBCUT (22:40)
[2020-05-30] VITALS (7 sets, daily range): BP systolic 115–138; BP diastolic 65–85; PULSE 69–89; RESP 12–20; TEMP 36.2–36.8; O2SAT 94–96
--- NOTE | 2020-05-30 00:33 | PC.NURSE ---
SINUS RHYTHM ON BLOCK ENGRAVER. BREATHING EVEN, NON-LABORED. OFFERS NO COMPLAINTS AT THIS TIMES.
--- NOTE | 2020-05-30 07:10 | PC.NURSE ---
Addendum entered by Moriah Bob 05/30/20 07:16: NS INFUSING AT 100ML AN HOUR Original Note: PT IS SLEEPING BUT EASILY AROUSABLE, SKIN PWD, RESPIRATIONS EVEN AND UNLABORED. PT REPORTS FEELING BETTER BUT STILL FEELS SLIGHTLY LIGHTHEADED. NS N THE MONITOR IN THE 80'S. PT SET UP WITH HER BREAKFAST. PT AWAITING ROOM ASSIGNMENT
[2020-05-30] MEDS: 0.9 % Sodium Chloride 1,000 ML 100 ML IVCONT ×2 (07:16→18:47)
--- NOTE | 2020-05-30 07:20 | PC.NURSE ---
REPORT GIVEN TO [facility] RN
[2020-05-30] MEDS: Heparin Sodium,Porcine 5,000 UNIT/ML VIAL 5000 UNIT SUBCUT ×2 (08:08→21:49)
[2020-05-30 08:43] LABS: Basophils Percent Auto 0.4 % (0-2); Eosinophils Percent Auto 1.1 % (0-4); Hemoglobin 12.3 g/dl (12.0-16.0); Imm Gran Abs Auto 0.01 X10*3/uL (0.00-0.03); Imm Gran Pct Auto 0.4 % (0.0-0.4); Lymphocytes Absolute Auto 0.3 X10*3/uL (1.2-4.9); Lymphocytes Percent Auto 12.5 % (20-40); MANUAL DIFF FLAG SCAN; Mean Corpuscular HGB Conc 33.2 g/dl (31.0-35.0); Mean Corpuscular Hemoglobin 28.1 pg (27.0-33.0); Mean Corpuscular Volume 84.7 fL (80-98); Mean Platelet Volume 10.7 fL (9.4-12.3); Monocytes Absolute Auto 0.2 X10*3/uL (0.1-1.2); Monocytes Percent Auto 7.6 % (2-11); Neutrophils Absolute Auto 2.1 X10*3/uL (2.0-8.3); Platelet Count 147 X10*3/uL (160-400); Red Blood Count 4.37 X10*6/uL (4.20-5.50); Red Cell Distribution Width 13.5 % (11.0-16.0); SCAN SMEAR FLAG 1; White Blood Count 2.6 X10*3/uL (4.8-10.8)
--- NOTE | 2020-05-30 08:55 | MHC.CM.PN ---
CM met with Patient and her Daughter at bedside. 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 Home, no services is the goal for dc and CM has initiated and will follow for dc planning. PCP is Dr. Gerry Dias.Patient states that her Daughter are her HCP.
--- NOTE | 2020-05-30 09:02 | MHC.CM.PN ---
Patient here with Stroke and may benefit from PT eval to assist with dc planning. CM will follow.
[2020-05-30 09:13] LABS: Anion Gap 13 (12-20); Blood Urea Nitrogen 11 mg/dL (9-16); Calcium 8.1 mg/dL (8.4-10.2); Chloride 108 mmol/L (96-108); Creatinine Clr Calc Pharmacy 103.9; Estimated Glomerular Filt Rate > 60; Glucose Random 143 mg/dL (60-115); Potassium 3.6 mmol/L (3.3-5.1); Sodium 141 mmol/L (135-145)
[2020-05-30 09:15] LABS: Carbon Dioxide 24 mmol/L (22-29)
[2020-05-30 09:29] LABS: SLIDE REVIEW VERIFIED
--- NOTE | 2020-05-30 11:53 | P.CNNE_ITS ---
History of Present Illness Data of Consult Service Date: 05/30/20 Primary Care Provider: Gerry Dias MD 55 years old woman with underlying history of hypertension depression and mi graine who presented with 2-3 days history of headache and dizziness. She said that she was not having any cold or flu-like illness though there was some watering from her nose. Nobody in the household was sick. She was not febrile. She was having bilateral foot mostly frontal and temporal usual migraine type of headache but associated with lightheadedness and dizziness that was also sense of motion and spinning, equally present and sitting standing or supine position. There was no alteration of consciousness or any ear or eye symptoms or numbness or paralysis or speech or language difficulty. She denied any problem with her language or walking. There was no mental confusion. Review of Systems Review of Systems: As reported in HPI. There was no history of trauma either. [facility] Past Medical History Medical History (Updated 05/30/20 @ 12:02 by Michell Tang MD) Benign tumor of thyroid gland Depression Hypertension Family History Family History (Updated 12/18/19 @ 10:01 by Anum Man MD) Other Heart disease Social History Social History Household Members: Children Housing: Apartment Do you presently have visiting nurse or other home services: No Alcohol intake: former Smoking Status: Never smoker Smoked in Last 30 Days: No Use of substances other than those prescribed or required for medical reasons: No Have you been hit, kicked, punched, or otherwise hurt by someone within the past year? 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 She is . She has 3 children. Meds Allergies Allergy/AdvReac Type Severity Reaction Status Date / Time No Known Allergies Allergy Verified 05/29/20 16:24 Active Medications: Current Medications Generic Name Dose Route Start Last Admin Trade Name Freq PRN Reason Stop Dose Admin Acetaminophen 650 mg 05/29/20 21:18 Acetaminophen 325 Mg Tablet PO Q6H PRN Pain, Mild (Pain Scale 1-3) Heparin Sodium (Porcine) 5,000 unit 05/29/20 22:00 05/30/20 08:08 Heparin Sodium,Porcine 5,000 Unit/Ml Vial SUBCUT 5,000 unit Q12H JANELLE Administration Sodium Chloride 1,000 mls @ 100 mls/hr 05/29/20 21:30 05/30/20 07:16 Ns IVCONT 100 mls/hr .Q10H JANELLE Administration Meclizine HCl 25 mg 05/29/20 21:20 Meclizine Hcl 25 Mg Tablet PO Q8H PRN dizziness Pharmacy Consult 1 each 05/29/20 21:28 Consult Rx Perform Med Rec MISCELLANE ONCE PRN Consult order Sodium Chloride 3 ml 05/30/20 00:00 05/30/20 08:08 0.9 % Sodium Chloride Flush 3 Ml Syringe IVFLUSH Not Given QSHIFT [facility] Home Medications Medication Instructions Recorded Confirmed Last Taken Type aspirin 81 mg PO DAILY 05/29/20 05/29/20 05/28/20 History levothyroxine 150 mcg PO DAILY@0630 05/29/20 05/29/20 05/28/20 History Physical Exam Vital Signs: Vital Signs: Last Vital Signs Temp 97.5 F 05/30/20 08:00 Pulse 89 05/30/20 08:00 Resp 18 05/30/20 08:00 BP 121/85 05/30/20 08:00 Pulse Ox 96 05/30/20 08:00 Body Mass Index 27.2 She was alert and awake with normal spontaneity of speech fluency comprehension and affect. Face was symmetrical. Eye examination did not reveal any obvious abnormality. There was no pronator drift. Qgsmib-jk-[id number] testing was normal. Deep tendon reflexes were trace with flexor plantars. Speech was normal. There was no nystagmus. Results Labs CBC & Chem 7: 05/30/20 08:09 05/30/20 08:09 Labs: Short CBC 05/29/20 05/29/20 05/30/20 Range/Units 16:25 19:37 08:09 WBC 6.2 4.9 2.6 L (4.8-10.8) X10*3/uL Hgb 14.1 13.8 12.3 (12.0-16.0) g/dl Hct 42.0 41.6 37.0 (37-47) % Plt Count 165 159 L 147 L (160-400) X10*3/uL BMP 05/29/20 05/29/20 05/30/20 16:25 19:37 08:09 Sodium 134 L 137 141 Potassium 4.3 4.0 3.6 Chloride 103 105 108 Carbon Dioxide 22 22 24 BUN 14 13 11 Creatinine 0.71 0.66 0.73 Calcium 9.0 8.6 8.1 L Liver Function 05/29/20 05/29/20 Range/Units 16:25 19:37 Total Bilirubin 0.8 0.8 (0.0-1.0) mg/dL AST 21 D 19 (5-31) U/L ALT 21 23 (0-31) U/L Alkaline Phosphatase 61 57 (39-117) U/L Albumin 4.3 4.1 (3.5-5.0) g/dL Urine 05/29/20 Range/Units 19:37 Urine Color YELLOW Urine Appearance CLEAR Urine pH 6.5 (5.0-8.0) Ur Specific [place] 1.025 (1.005-1.025) Urine Protein NEG (NEG-TRACE) MG/DL Urine Glucose (UA) NEG (NEG) MG/DL Her CT and CTA of brain and neck were reviewed. No significant vascular lesion was noted. There was no obvious acute lesion. There was 1 cortical right frontoparietal area hypodensity that did not enhance, could be chronic ischemic infarction or a low-grade glioma. Assessment and Plan (1) Status migrainosus: Status: Acute Her overall description of symptoms including bilateral typical migraine type of headaches, which she used to have, associated with the continuous feeling of dizziness or vertigo, without any obvious signs of infection or overt viral illness was suggestive of status migrainosus. Other possibilities would include a viral syndrome. Mainstay of management is symptomatic treatment. I would suggest trying sumatriptan 50 mg p.r.n. with the metoclopramide 5-10 mg. (2) Brain lesion: Problem details: Her brain scan did not reveal any obvious acute lesion but there was 1 right frontoparietal cortical lesion that needed further delineation. My recommendation is to obtain an MRI of brain to look at that lesion. Status: Acute
[2020-05-30] MEDS: Acetaminophen 325 MG TABLET 650 MG PO ×2 (12:49→21:49)
--- NOTE | 2020-05-30 14:40 | MHC.CM.PN ---
CM met with Patient to discuss PT's recommendation for Acute Rehab. Patient's preference is to return home with a new referral to [facility] for home PT, but she is agreeable to referrals being made to the 3 area Acute Rehabs. CM will follow for dc planning.
--- NOTE | 2020-05-30 14:58 | P.PNIM_ITS ---
Subjective Subjective Date of Service: 05/30/20 Interval History: Patient seen and examined at bedside patient was still reporting dizziness has some nausea improving Review of Systems As reported in HPI. There was no history of trauma either. Constitutional Constitutional: Reports as per HPI and Reports no additional constitutional complaints Eyes Eyes: Reports as per HPI and Reports no additional eye complaints ENT Ears, Nose, Mouth, and Throat: Reports system reviewed and no additional complaints, except as documented, Reports as per HPI, Reports vertigo and Reports dizziness Cardiovascular Cardiovascular: Reports as per HPI and Reports no additional cardiovascular complaints Respiratory Respiratory: Reports as per HPI and Reports no additional respiratory complaints Gastrointestinal Gastrointestinal: Reports as per HPI and Reports no additional gastrointestinal complaints Musculoskeletal Musculoskeletal: Reports no additional musculoskeletal complaints and Reports as per HPI Neurologic Neurologic: Reports system reviewed and no additional complaints, except as documented, Reports as per HPI, Reports vertigo and Reports dizziness Psychiatric Psychiatric: Reports no additional psychiatric complaints and Reports as per HPI Physical Exam Vital Signs: Vital Signs: Last Vital Signs Temp 97.8 F 05/30/20 12:00 Pulse 70 05/30/20 14:15 Resp 18 05/30/20 12:00 BP 131/79 05/30/20 14:15 Pulse Ox 96 05/30/20 14:15 Body Mass Index 27.2 Const: General: cooperative, healthy appearing, comfortable, no acute distress, well developed, alert, awake and Physically active HENMT: Head: Yes normal to inspection, Yes No palpable skull fracture present, Yes normocephalic, Yes atraumatic and No abrasion Eyes: General: appearance normal, both eyes and all related structures Neck: Other: Negative for nystagmus Neck: Yes normal visual inspection, Yes full ROM, Yes no lymphadenopathy, Yes no meningeal signs, Yes trachea midline, Yes supple and No tender Chest: Chest palpation & inspection: normal inspection of the chest and normal palpation of entire chest wall Resp: Effort & Inspection: normal respiratory effort and able to speak in complete sentences Auscultation: clear to auscultation bilaterally Cardio: Jugular venous distension: no JVD Heart sounds: S1 normal heart sound present and S2 normal heart sound present GI: Inspection: Yes normal to inspection and No abdominal wall ecchymosis Palpation (GI): Soft to palpation, not firm, nontender, no guarding and not rigid : General: No CVA tenderness and Yes no CVA tenderness Back/Spine/Pelvis: Back: no CVA tenderness, No CVA tenderness and No back tenderness Skin: General skin exam: no rashes or lesions noted and elasticity normal Neuro: Other: Negative for facial droop. Negative slurred speech. Negative pronator drift. All extremities equal strength and 5+. [id number] rapid hand movement intact. Negative for any focal deficits General: no meningeal signs Extrem: General: Yes normal to inspection and Yes full ROM Psych: Appearance: grossly normal, well kempt and not disheveled Objective Data Current Medications Generic Name Dose Route Start Last Admin Trade Name Enq PRN Reason Stop Dose Admin Acetaminophen 650 mg 05/29/20 21:18 05/30/20 12:49 Acetaminophen 325 Mg Tablet PO 650 mg Q6H PRN Administration Pain, Mild (Pain Scale 1-3) Heparin Sodium (Porcine) 5,000 unit 05/29/20 22:00 05/30/20 08:08 Heparin Sodium,Porcine 5,000 Unit/Ml Vial SUBCUT 5,000 unit Q12H JANELLE Administration Sodium Chloride 1,000 mls @ 100 mls/hr 05/29/20 21:30 05/30/20 07:16 Ns IVCONT 100 mls/hr .Q10H JANELLE Administration Meclizine HCl 25 mg 05/29/20 21:20 Meclizine Hcl 25 Mg Tablet PO Q8H PRN dizziness Pharmacy Consult 1 each 05/29/20 21:28 Consult Rx Perform Med Rec MISCELLANE ONCE PRN Consult order Sodium Chloride 3 ml 05/30/20 00:00 05/30/20 08:08 0.9 % Sodium Chloride Flush 3 Ml Syringe IVFLUSH Not Given QSHIFT [facility] Labs CBC & Chem 7: 05/30/20 08:09 05/30/20 08:09 Assessment and Plan (1) Dizziness: Status: Acute Assessment and Plan: 55-year-old female with a past medical history of hypertension, hyperlipidemia, hypothyroidism, vertigo., CVA, breast cancer, anxiety, depression presented to the hospital with a chief complaint of dizziness. Vertigo/dizziness likely BPPV CT head and neck shows no acute stenosis Meclizine p.r.n. Fall precautions Neurology consulted CT shows right frontoparietal lesion neurology recommended MRI brain with and without contrast MRI pending PT/OT Hypertension/hyperlipidemia: Continue home medications Hypothyroidism: Continue levothyroxine DVT prophylaxis: Subcu heparin
[2020-05-30] MEDS: 0.9 % Sodium Chloride Flush 3 ML SYRINGE IVFLUSH (21:50)
[2020-05-31] VITALS (8 sets, daily range): BP systolic 133–154; BP diastolic 82–94; PULSE 41–86; RESP 16–19; TEMP 35.8–36.6; O2SAT 96–98
[2020-05-31] MEDS: Acetaminophen 325 MG TABLET 650 MG PO ×3 (04:18→21:37)
[2020-05-31] MEDS: Meclizine HCl 25 MG TABLET PO ×3 (04:18→21:37)
[2020-05-31] MEDS: 0.9 % Sodium Chloride 1,000 ML 100 ML IVCONT ×3 (04:20→23:53)
--- NOTE | 2020-05-31 05:56 | PC.NURSE ---
Pt noted to be sinus lalita overnight, mostly sustaining in the 50s, periodically 48-49. Pt assessed and stable, will continue to monitor.
[2020-05-31] MEDS: Heparin Sodium,Porcine 5,000 UNIT/ML VIAL 5000 UNIT SUBCUT ×2 (09:38→21:39)
--- NOTE | 2020-05-31 13:51 | MHC.CM.PN ---
PER HOSPITALIST PT READY FOR D/C TODAY TO ACUTE REHAB, ALL 3 LOCAL ACUTE REHABS UNABLE TO GET AUTH FROM [facility] OVER WEEKEND, JOSE/ULYSSES REPORTING OT EVAL IS INCOMPLETE AND WILL NEED COMPLETED OT EVAL TO ADMIT PT, OT UNAVAILABLE ON WEEKENDS. CM WILL CONTINUE TO FOLLOW D/C NEEDS.
--- NOTE | 2020-05-31 14:47 | P.PNIM_ITS ---
Subjective Subjective Date of Service: 05/31/20 Interval History: Patient seen and examined at bedside patient was still reporting dizziness Review of Systems As reported in HPI. There was no history of trauma either. Constitutional Constitutional: Reports as per HPI and Reports no additional constitutional complaints Eyes Eyes: Reports as per HPI and Reports no additional eye complaints ENT Ears, Nose, Mouth, and Throat: Reports system reviewed and no additional complaints, except as documented, Reports as per HPI, Reports vertigo and Reports dizziness Cardiovascular Cardiovascular: Reports as per HPI and Reports no additional cardiovascular complaints Respiratory Respiratory: Reports as per HPI and Reports no additional respiratory complaints Gastrointestinal Gastrointestinal: Reports as per HPI and Reports no additional gastrointestinal complaints Musculoskeletal Musculoskeletal: Reports no additional musculoskeletal complaints and Reports as per HPI Neurologic Neurologic: Reports system reviewed and no additional complaints, except as documented, Reports as per HPI, Reports vertigo and Reports dizziness Psychiatric Psychiatric: Reports no additional psychiatric complaints and Reports as per HPI Physical Exam Vital Signs: Vital Signs: Last Vital Signs Temp 97.7 F 05/31/20 11:50 Pulse 60 05/31/20 11:50 Resp 19 05/31/20 11:50 BP 141/88 H 05/31/20 11:50 Pulse Ox 96 05/31/20 11:50 Body Mass Index 27.2 Const: General: cooperative, healthy appearing, comfortable, no acute distress, well developed, alert, awake and Physically active HENMT: Head: Yes normal to inspection, Yes No palpable skull fracture present, Yes normocephalic, Yes atraumatic and No abrasion Eyes: General: appearance normal, both eyes and all related structures Neck: Other: Negative for nystagmus Neck: Yes normal visual inspection, Yes full ROM, Yes no lymphadenopathy, Yes no meningeal signs, Yes trachea midline, Yes supple and No tender Chest: Chest palpation & inspection: normal inspection of the chest and normal palpation of entire chest wall Resp: Effort & Inspection: normal respiratory effort and able to speak in complete sentences Auscultation: clear to auscultation bilaterally Cardio: Jugular venous distension: no JVD Heart sounds: S1 normal heart sound present and S2 normal heart sound present GI: Inspection: Yes normal to inspection and No abdominal wall ecchymosis Palpation (GI): Soft to palpation, not firm, nontender, no guarding and not rigid : General: No CVA tenderness and Yes no CVA tenderness Back/Spine/Pelvis: Back: no CVA tenderness, No CVA tenderness and No back tenderness Skin: General skin exam: no rashes or lesions noted and elasticity normal Neuro: Other: Negative for facial droop. Negative slurred speech. Negative pronator drift. All extremities equal strength and 5+. Orccpy-[id number] rapid hand movement intact. Negative for any focal deficits General: no meningeal signs Extrem: General: Yes normal to inspection and Yes full ROM Psych: Appearance: grossly normal, well kempt and not disheveled Objective Data Current Medications Generic Name Dose Route Start Last Admin Trade Name Freq PRN Reason Stop Dose Admin Acetaminophen 650 mg 05/29/20 21:18 05/31/20 10:31 Acetaminophen 325 Mg Tablet PO 650 mg Q6H PRN Administration Pain, Mild (Pain Scale 1-3) Heparin Sodium (Porcine) 5,000 unit 05/29/20 22:00 05/31/20 09:38 Heparin Sodium,Porcine 5,000 Unit/Ml Vial SUBCUT 5,000 unit Q12H JANELLE Administration Sodium Chloride 1,000 mls @ 100 mls/hr 05/29/20 21:30 05/31/20 04:20 Ns IVCONT 100 mls/hr .Q10H JANELLE Administration Meclizine HCl 25 mg 05/29/20 21:20 05/31/20 12:21 Meclizine Hcl 25 Mg Tablet PO 25 mg Q8H PRN Administration dizziness Pharmacy Consult 1 each 05/29/20 21:28 Consult Rx Perform Med Rec MISCELLANE ONCE PRN Consult order Sodium Chloride 3 ml 05/30/20 00:00 05/31/20 08:05 0.9 % Sodium Chloride Flush 3 Ml Syringe IVFLUSH Not Given QSHIFT [facility] Labs CBC & Chem 7: 05/30/20 08:09 05/30/20 08:09 Assessment and Plan (1) Dizziness: Status: Acute Assessment and Plan: 55-year-old female with a past medical history of hypertension, hyperlipidemia, hypothyroidism, vertigo., CVA, breast cancer, anxiety, depression presented to [facility] with a chief complaint of dizziness. Vertigo/dizziness likely BPPV still having dizziness CT head and neck shows no acute stenosis MRI brain shows no acute infarct or lesion Meclizine p.r.n. Fall precautions Neurology consulted CT shows right frontoparietal lesion neurology r ecommended MRI brain , MRI brain was done shows no lesion or infarct evaluated by PT recommended acute rehab OT evaluation pending Hypertension/hyperlipidemia: Continue home medications Hypothyroidism: Continue levothyroxine DVT prophylaxis: Subcu heparin awaiting acute rehab
[2020-05-31] MEDS: 0.9 % Sodium Chloride Flush 3 ML SYRINGE IVFLUSH ×2 (16:40→21:39)
--- NOTE | 2020-05-31 23:02 | PC.NURSE ---
Pt noted to be fluctuating between sinus lalita and normal sinus, reaching 41 bpm briefly. Mostly sustaining around 50-60s bpm while sleeping. Patient assessed and stable, will continue to monitor.
[2020-06-01] MEDS: Acetaminophen 325 MG TABLET 650 MG PO ×2 (03:11→09:20)
[2020-06-01 03:18] VITALS: BP 140/86; PULSE 51; RESP 16; TEMP 36; O2SAT 96
[2020-06-01] MEDS: Levothyroxine Sodium 150 MCG TABLET PO (05:54)
[2020-06-01] MEDS: Meclizine HCl 25 MG TABLET PO ×2 (05:55→16:56)
[2020-06-01 08:00] VITALS: BP 149/94; PULSE 57; RESP 17; TEMP 36.4; O2SAT 97
[2020-06-01] MEDS: Aspirin 81 MG TAB.CHEW PO (09:20)
[2020-06-01] MEDS: Escitalopram Oxalate 10 MG TABLET PO (09:20)
[2020-06-01] MEDS: 0.9 % Sodium Chloride Flush 3 ML SYRINGE IVFLUSH ×3 (09:21→21:57)
[2020-06-01] MEDS: Heparin Sodium,Porcine 5,000 UNIT/ML VIAL 5000 UNIT SUBCUT ×2 (09:21→21:57)
[2020-06-01] MEDS: 0.9 % Sodium Chloride 1,000 ML 100 ML IVCONT (09:22)
--- NOTE | 2020-06-01 10:43 | P.PNIM_ITS ---
Subjective Subjective Date of Service: 06/01/20 Interval History: Seen in f/u for migraine headache, dizziness.. Overall better Review of Systems Gen: no fever Resp: no sob, no cough CV: no chest, no LANDAVERDE, no leg edema GI: No n/v, no abd pain Neuro: dizzines Physical Exam Vital Signs: Vital Signs: Last Vital Signs Temp 97.6 F 06/01/20 08:00 Pulse 57 06/01/20 08:00 Resp 17 06/01/20 08:00 BP 149/94 H 06/01/20 08:00 Pulse Ox 97 06/01/20 08:00 Body Mass Index 27.2 General: AO X 3, no acute distress Resp: normal resp effort CVS: S1,S2,RRR GI: +BS, NT, no distention Skin: No rash Neuro: motor grossly intact Psych: appropriate affect Objective Data Current Medications Generic Name Dose Route Start Last Admin Trade Name Freq PRN Reason Stop Dose Admin Acetaminophen 650 mg 05/29/20 21:18 06/01/20 09:20 Acetaminophen 325 Mg Tablet PO 650 mg Q6H PRN Administration Pain, Mild (Pain Scale 1-3) Aspirin 81 mg 06/01/20 09:00 06/01/20 09:20 Aspirin 81 Mg Tab.Chew PO 81 mg DAILY JANELLE Administration Escitalopram Oxalate 10 mg 06/01/20 09:00 06/01/20 09:20 Escitalopram Oxalate 10 Mg Tablet PO 10 mg DAILY JANELLE Administration Heparin Sodium (Porcine) 5,000 unit 05/29/20 22:00 06/01/20 09:21 Heparin Sodium,Porcine 5,000 Unit/Ml Vial SUBCUT 5,000 unit Q12H JANELLE Administration Sodium Chloride 1,000 mls @ 100 mls/hr 05/29/20 21:30 06/01/20 09:28 Ns IVCONT 0 mls/hr .Q10H JANELLE Infusion Levothyroxine Sodium 150 mcg 06/01/20 06:30 06/01/20 05:54 Levothyroxine Sodium 150 Mcg Tablet PO 150 mcg DAILY@0630 JANELLE Administration Meclizine HCl 25 mg 05/29/20 21:20 06/01/20 05:55 Meclizine Hcl 25 Mg Tablet PO 25 mg Q8H PRN Administration dizziness Metoprolol Succinate 25 mg 06/01/20 09:00 06/01/20 09:30 Metoprolol Succinate Er 25 Mg Tab.Er.24h PO Not Given DAILY [facility] Protocol Pharmacy Consult 1 each 05/29/20 21:28 Consult Rx Perform Med Rec MISCELLANE ONCE PRN Consult order Sodium Chloride 3 ml 05/30/20 00:00 06/01/20 09:21 0.9 % Sodium Chloride Flush 3 Ml Syringe IVFLUSH 3 ml QSHIFT [facility] Administration Labs CBC & Chem 7: 05/30/20 08:09 05/30/20 08:09 Assessment and Plan (1) Dizziness: Status: Acute Assessment and Plan: 55-year-old female with a past medical history of hypertension, hyperlipidemia, hypothyroidism, vertigo., CVA, breast cancer, anxiety, depression presented to the hospital with a chief complaint of dizziness. Vertigo/dizziness likely BPPV still having dizziness CT head and neck shows no acute stenosis MRI brain shows no acute infarct or lesion Meclizine p.r.n. Fall precautions OT evaluation pending She desires to go to acute rehab but can't happen until OT eval Hypertension/hyperlipidemia: Continue home medications Hypothyroidism: Continue levothyroxine DVT prophylaxis: Subcu heparin awaiting acute rehab
[2020-06-01 12:00] VITALS: BP 141/87; PULSE 75; RESP 18; TEMP 36.9; O2SAT 97
[2020-06-01 15:51] VITALS: BP 158/99; PULSE 70; RESP 18; TEMP 36.6; O2SAT 96
[2020-06-01 19:08] VITALS: BP 137/91; PULSE 81; RESP 18; TEMP 36.6; O2SAT 95
[2020-06-01 23:45] VITALS: BP 129/80; PULSE 77; RESP 18; TEMP 36.8; O2SAT 94
[2020-06-02 04:00] VITALS: BP 117/75; PULSE 72; RESP 18; TEMP 36.4; O2SAT 95
[2020-06-02] MEDS: Levothyroxine Sodium 150 MCG TABLET PO (05:56)
[2020-06-02 08:00] VITALS: BP 132/94; PULSE 73; RESP 19; TEMP 36.7; O2SAT 96
[2020-06-02] MEDS: Metoprolol Succinate ER 25 MG TAB.ER.24H PO (08:22)
[2020-06-02] MEDS: Aspirin 81 MG TAB.CHEW PO (08:22)
[2020-06-02] MEDS: Escitalopram Oxalate 10 MG TABLET PO (08:22)
[2020-06-02] MEDS: Heparin Sodium,Porcine 5,000 UNIT/ML VIAL 5000 UNIT SUBCUT (08:22)
[2020-06-02] MEDS: 0.9 % Sodium Chloride Flush 3 ML SYRINGE IVFLUSH ×2 (08:23→15:40)
[2020-06-02 12:00] VITALS: BP 133/88; PULSE 77; RESP 18; TEMP 36.7; O2SAT 96
--- NOTE | 2020-06-02 13:51 | PM.DS ---
DS: Providers Provider Date of Service: 07/12/20 Date of admission: 05/29/20 21:18 Primary care physician: Gerry Dias MD Consults: 05/29/20 21:18 Consult to Neurology Routine Consulting Provider: [facility] Reason for consultation: Dsizziness DS: Diagnosis Discharge Diagnosis (1) Dizziness: Status: Resolved DS: Medications Discharge Medications Home Medications: Home Medications Medication Instructions Recorded Confirmed aspirin 81 mg PO DAILY 05/29/20 05/29/20 levothyroxine 150 mcg PO DAILY@0630 05/29/20 05/29/20 Previous Rx's Medication Instructions Recorded citalopram 20 mg tablet 20 mg PO DAILY #90 tab 05/04/20 metoprolol succinate 25 mg 25 mg PO DAILY #30 tab 05/16/20 tablet,extended release 24 hr DS: Summary Hospital Course Hospital Course: Chief Complaint: Dizziness 55-year-old female with a past medical history of hypertension, hyperlipidemia, history of vertigo, anemia, history of breast cancer, benign thyroid tumor, CVA, anxiety, depression presented to the hospital with a chief complaint a of dizziness. Patient mentioned that she has been having dizziness for the past 3 days, appears room spinning, associated nausea, denies any falls or head strike. Denies any loss of consciousness. Denies any seizure-like activity. Mentioned that current symptoms are similar to the prior episodes of vertigo. Also says that she had note of which reason and has not taken it; Today she had severe symptoms hence decided to come to the ER for further help. Denies any chest pain. Denies any numbness tingling. Denies any focal weakness. Denies any symptoms. Review of all other systems is negative except mentioned above ER course: Per ER team patient exam was nonfocal, cerebellar signs intact, patient on getting up from the bed for orthostatics felt dizzy; orthostatics were negative; given Reglan, meclizine, IV fluids. Admitted for further management. Also mentioned that he EKG negative, CT angio head and neck negative. Vertigo/dizziness likely BPPV still having dizziness CT head and neck shows no acute stenosis MRI brain shows no acute infarct or lesion Meclizine p.r.n. Fall precautions OT evaluation pending She desires to go to acute rehab but can't happen until OT eval Hypertension/hyperlipidemia: Continue home medications Hypothyroidism: Continue levothyroxine Time Spent with Patient Time attestation: Total time spent providing and/or coordinating discharge services: Discharge coordination time: Greater than 30 minutes Physical Exam Vital Signs: Vital Signs: Last Vital Signs Temp 98.1 F 06/02/20 12:00 Pulse 77 06/02/20 12:00 Resp 18 06/02/20 12:00 BP 133/88 06/02/20 12:00 Pulse Ox 96 06/02/20 12:00 Body Mass Index 27.2 Discharge Plan Discharge Anticipated Discharge Date/Time: 06/02/20 13:37 Patient Disposition: Home, Self-Care Discharge Diagnosis: Status migrainosus Referrals: Gerry Dias MD [Primary Care Provider] - Discharge Medications: New meclizine 25 mg Tablet 25 mg PO Q8H PRN (Reason: dizziness) Qty: 20 RF: 0 Continued citalopram 20 mg tablet 20 mg PO DAILY Qty: 90 RF: 0 metoprolol succinate 25 mg tablet extended release 24 hr 25 mg PO DAILY Qty: 30 RF: 3 aspirin 81 mg Tablet,Chewable 81 mg PO DAILY RF: 0 No Action levothyroxine 150 mcg tablet 150 mcg PO DAILY Qty: 90 RF: 0 Discharge Orders: Discharge Order (Routine); Ordered 06/02/20 Ordered By: Amadeo Mckee Diet: advance to usual diet Activity on Discharge: As tolerated Stand Alone Forms: Patient Portal Discharge page Care Plan Goals: Prevent rehospitalization and control of migraine headach Health Concerns: Status migrainosus Plan of Treatment: Home with Physical therapy, continue usual medication for migraine and follow up with your Doctor in a week Assessment: Status migrainosus Discharge Date/Time: 06/02/20 17:53
--- NOTE | 2020-06-02 14:00 | MHC.CM.PN ---
Patient has been medically cleared for dc to home today. Patient agrees to make an appointment with her PCP tomorrow morning, go home today/no services, and ask her PCP for a VNA referral, once home and at her PCP appointment. Patient and MD are aware of and in agreement with the dc plan.
[2020-06-02 15:33] VITALS: BP 130/84; PULSE 70; RESP 18; TEMP 36.6; O2SAT 96
== END 2020-06-02 17:53 | disposition home or self-care (01) | DRG 111 ==
LOC: HO.ED 22:38 → HO.EDOVER 22:42 → HO.IMC 05-30 06:47
PROVIDERS: Physician Assistant; Admitting Provider Hospitalist; Emergency Provider Emergency Medicine; PCP Internal Medicine; Visit Provider Internal Medicine
DX: H81.10 Benign paroxysmal vertigo, unspecified ear (principal); E03.9 Hypothyroidism, unspecified; E78.5 Hyperlipidemia, unspecified; F32.9 Major depressive disorder, single episode, unspecified; Z79.82 Long term (current) use of aspirin; Z79.890 Hormone replacement therapy; Z79.899 Other long term (current) drug therapy
CPT/HCPCS: 36415; 70496; 70498; 70553; 80048; 80053; 81003; 83735; 84484; 85025; 85610; 85730; 87635; 93005; 96374; 96375; 97116; 97163; 97166; 99285; A9585; J2405; J2765; Q9967

== ENCOUNTER 2020-06-16 10:05 | Outpatient (AMB) | payer OTHER, SELFPAY ==
--- NOTE | 2020-06-16 10:23 | A.OFFVIS_ITS ---
Intake Vital Signs 06/16/20 10:24 Height 5 ft 10 in Weight 207 lb BMI 29.7 BP 130/80 Pulse 80 Pulse Source Pulse Oximeter Temp 98.1 F Pulse Oximetry (%) 96 Oxygen Delivery Method Room Air Intake Visit Reasons: [facility] [place] d/c 06/02 vertigo Enrollment Advisor Required: No Accompanied by: Self / Same As Patient Allergies No Known Allergies Allergy (Verified 06/28/23 16:07) Medication List - Last Reconciled 06/16/20 by Gerry Dias MD aspirin 81 mg PO DAILY citalopram 20 mg PO DAILY levothyroxine 150 mcg PO DAILY@629 meclizine 25 mg PO Q8H PRN metoprolol succinate ER 25 mg PO DAILY HPI [facility] [place] d/c 06/02 vertigo HPI Details Patient comes in today for her F follow up visit She was admitted to [facility] [place] for a few days a couple of weeks ago for status migrainus She was also experiencing increased dizziness at the time Her workups done all came back negative and she was eventually discharged home when her symptoms improved although she recalls still feeling slightly dizzy at the time of her discharge States that her symptoms have since subsided and are currently no longer bothering She denies any headaches lately Denies any chest pains, no shortness of breath No nausea / vomiting, no abdominal pain No change in bowel habits noted PFSH Medical History Cervical disc disease Dysplasia of cervix, low grade (LEIDY 1) Overweight (BMI 25.0-29.9) Vitamin D deficiency Nocturnal leg cramps Osteopenia Primary osteoarthritis of right knee Lumbar degenerative disc disease Iron deficiency anemia Migraine Acquired hypothyroidism Pure hypercholesterolemia Coronary artery disease Benign paroxysmal vertigo Benign tumor of thyroid gland Depression Hypertension Surgical History Hx of colonoscopy (~06/17/15) H/O thyroidectomy Hx of tonsillectomy History of placement of ear tubes History of lumpectomy of left breast Family History Other Heart disease No family history of cancer Social History Household Members: Family and Children Housing: Apartment Are you a primary home care rn to a significant other at home: No Do you presently have visiting nurse or other home services: No Alcohol intake: former Comment: pt states feels less dizzy Patient Tobacco Use Status: Never used Tobacco e-Cigarette/Vaping Use: Never Used Second Hand Smoke Exposure: Yes service: No Current occupational status: employed 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 She is . She has 3 children. Cognitive needs: No Hearing needs: No Vision needs: Yes Questionnaire Thrive Questionnaire Thrive Questionnaire I am a:: Patient What is your living situation today?: I have a steady place to live Within the past 12 months, the food you bought just didn't last and you didn't have the money to get more.: Never true Within the past 12 months, you worried whether your food would run out before you got money to buy more.: Never true Do you have trouble paying for medicines?: No Do you have trouble getting transportation to medical appointments?: No Do you have trouble paying your heating and electricity bill?: No Do you have trouble taking care of your child, family member or friend?: No Do you have trouble with day-to-day activities such as bathing, preparing meals, shopping, managing finances, etc.?: No Are you currently unemployed and looking for a job?: No Are you interested in more education?: No AUDIT C Alcohol Use Questionnaire (AUDIT-C) 1. How often do you have a drink containing alcohol?: Never 3. How often do you have six or more drinks on one occasion?: Never Total Score: 0 Score Reviewed/Action Taken: Yes PHQ-9 Over the last 2 weeks, how often have you been bothered by any of the following problems? 1. Little interest or pleasure in doing things: more than half the days 2. Feeling down, depressed, or hopeless: more than half the days 3. Trouble falling or staying asleep, or sleeping too much: more than half the days 4. Feeling tired or having little energy: nearly every day 5. Poor appetite or overeating: nearly every day 6. Feeling bad about yourself - or that you are a failure or have let yourself or your family down: not at all 7. Trouble concentrating on things, such as reading the newspaper or watching television: not at all 8. Moving or speaking so slowly that other people could have noticed. Or the opposite - being so fidgety or restless that you have been moving around a lot more than usual: not at all 9. Thoughts that you would be better off or of hurting yourself in some way: not at all Total score: 12 10. If you checked off any problems, how difficult have those problems made it for you to do your work, take care of things at home, or get along with other people?: somewhat difficult 0-4 None-Minimal, 5-9 Mild, 10-14 Moderate, 15-19 Moderately Severe, 20-27 Severe Source: Developed by Drs. Manny Gardiner, Rashida Wynn, Livan Vigil and colleagues, with an educational slade from [employer]. Review of Systems Const Denies chills, Reports fatigue, Denies fever(s) and Denies headache(s) ENT Reports dizziness (occasional - improving), Denies headache(s), Denies odynophagia, Denies sinus pain and Denies sore throat Card Denies chest pain, Denies palpitations and Denies dyspnea Resp Denies cough and Denies dyspnea GI Denies abdominal pain, Denies constipation, Denies heartburn, Denies diarrhea and Denies odynophagia Denies difficulty voiding, Denies nocturia and Denies dysuria Neuro Reports dizziness (occasional - improving) and Denies headache(s) Endo Reports fatigue and Denies palpitations Physical Exam Vital Signs: Last Vital Signs Temp 98.1 F 06/16/20 10:24 Pulse 80 06/16/20 10:24 BP 130/80 06/16/20 10:24 Pulse Ox 96 06/16/20 10:24 Oxygen Delivery Method Room Air 06/16/20 10:24 BMI result Body Mass Index 29.7 Const General: no acute distress and alert HENMT Ears: TM's normal bilaterally and EAC's normal Throat: Yes posterior oropharynx normal and Yes tonsils normal (no TP congestion) Neck Neck: Yes no lymphadenopathy and Yes supple Thyroid: Thyroid normal Resp Auscultation: clear to auscultation bilaterally, no rales and no wheezes Cardio Rate: regular rate Rhythm: regular rhythm Heart sounds: no murmurs GI Palpation (GI): Soft to palpation and nontender Auscultation: normal bowel sounds Skin General skin exam: no rashes or lesions noted Extrem General: Yes no clubbing, cyanosis or edema Assessment & Plan Assessment & Plan (1) Benign paroxysmal vertigo: Code(s): H81.10 - Benign paroxysmal vertigo, unspecified ear Qualifiers: Laterality: unspecified laterality Qualified Code(s): H81.10 - Benign paroxysmal vertigo, unspecified ear Plan - Gerry Dias MD: Appears resolved Advised that we can refer her for canalith positioning if her symptoms recur (2) Coronary artery disease: Comment: Stress EKG done on 12/05/2018 was negative for ischemia; myocardial perfusion studies done on 11/21/2018 revealed (+) equivocal apical ischemia but no transient ischemic dilatation is seen; gated LVEF was at 69% Code(s): I25.10 - Atherosclerotic heart disease of [place] coronary artery without angina pectoris Qualifiers: Coronary Disease-Associated Artery/Lesion type: [place] artery [place] vs. transplanted heart: [place] heart Associated angina: without angina Qualified Code(s): I25.10 - Atherosclerotic heart disease of [place] coronary artery without angina pectoris Patient Instructions: Asymptomatic from cardiac standpoint Continue Metoprolol ER 25 mg QD and Aspirin 81 mg QD Follow up with cardiology as scheduled (3) Pure hypercholesterolemia: Code(s): E78.00 - Pure hypercholesterolemia, unspecified Plan - Gerry Dias MD: Reinforced low cholesterol diet Will recheck her labs and fasting lipids in 6 months for follow up (4) Acquired hypothyroidism: Code(s): E03.9 - Hypothyroidism, unspecified Patient Instructions: Continue Levothyroxine 150 mcg QD Will recheck her TFTs in 6 months for follow up (5) Migraine: Code(s): G43.909 - Migraine, unspecified, not intractable, without status migrainosus Qualifiers: Migraine type: unspecified Status migrainosus presence: without status migrainosus Intractability: not intractable Qualified Code(s): G43.909 - Migraine, unspecified, not intractable, without status migrainosus Patient Instructions: Brain MRI done in May 2020 came out normal except for scattered chronic small vessel ischemic changes within the periventricular white matter EEG, NCV and EMG done were all reportedly normal Follow-up with neurology as scheduled (6) Iron deficiency anemia: Code(s): D50.9 - Iron deficiency anemia, unspecified Qualifiers: Iron deficiency anemia type: unspecified iron deficiency Qualified Code(s): D50.9 - Iron deficiency anemia, unspecified Plan - Gerry Dais MD: Continue Ferrous Sulfate 325 mg BID Will recheck her CBC in 6 months for follow up (7) Lumbar degenerative disc disease: Code(s): M51.36 - Other intervertebral disc degeneration, lumbar region Plan - Gerry Dias MD: Reinforced activity and weight-lifting restrictions (+) mild lumbar spondylosis was seen on her lumbar spine MRI previously done in March 2016 (8) Primary osteoarthritis of right knee: Code(s): M17.11 - Unilateral primary osteoarthritis, right knee Patient Instructions: Right knee x-rays done in January 2017 and January 2018 revealed (+) mild OA changes but patient feels that her knee pain has gotten a lot worse over the past couple of years Follow up with orthopedics as scheduled (9) Ductal carcinoma in situ (DCIS) of left breast: Comment: Completed 5 years of oral Tamoxifen Code(s): D05.12 - Intraductal carcinoma in situ of left breast Patient Instructions: Follow up with oncology as scheduled for continuing surveillance Her most recent repeat mammogram came out negative (10) Osteopenia: Code(s): M85.80 - Other specified disorders of bone density and structure, unspecified site Qualifiers: Osteopenia location: unspecified Qualified Code(s): M85.80 - Other specified disorders of bone density and structure, unspecified site Plan - Gerry Dias MD: BMD last done in December 2019 - revealed (+) osteopenia that is mostly unchanged from previous BMD on 08/02/2017 and from her baseline in 2014 She is encouraged to continue regular exercise and physical activity as tolerated to help manage/maintain her BMD Will continue to monitor BMD every 2 to 3 years (11) Nocturnal leg cramps: Code(s): G47.62 - Sleep related leg cramps Patient Instructions: Continue Tizanidine 4 mg Q HS PRN (12) Vitamin D deficiency: Code(s): E55.9 - Vitamin D deficiency, unspecified Patient Instructions: Continue Vitamin D3 5000 units QD Will recheck her Vitamin D level in 6 months for follow up (13) Depression: Code(s): F32.9 - Major depressive disorder, single episode, unspecified Qualifiers: Depression Type: major depressive disorder Major depression recurrence: recurrent Active/Remission status: currently active Major depression episode severity: unspecified Qualified Code(s): F33.9 - Major depressive disorder, re current, unspecified [place] - Gerry Dias MD: Continue Citalopram 20 mg QD (14) Overweight (BMI 25.0-29.9): Code(s): E66.3 - Overweight Plan - Gerry Dias MD: Reinforced diet/exercise as tolerated/lose weight Patient Instructions: To return in 6 months for her annual physical examination Quality Reporting (2019) Depression/Bipolar (159/160/161/177) PHQ-9: Total score: 12 Coding Level of Care Code Est Pt Level 4 (23104) Diagnoses Benign paroxysmal vertigo, unspecified laterality H81.10 Laterality: unspecified laterality Coronary artery disease involving [place] coronary artery of [place] heart without angina pectoris I25.10 Coronary Disease-Associated Artery/Lesion type: [place] artery [place] vs. transplanted heart: [place] heart Associated angina: without angina Pure hypercholesterolemia E78.00 Acquired hypothyroidism E03.9 Migraine without status migrainosus, not intractable, unspecified migraine type G43.909 Migraine type: unspecified Status migrainosus presence: without status migrainosus Intractability: not intractable Iron deficiency anemia, unspecified iron deficiency anemia type D50.9 Iron deficiency anemia type: unspecified iron deficiency Lumbar degenerative disc disease M51.36 Primary osteoarthritis of right knee M17.11 Ductal carcinoma in situ (DCIS) of left breast D05.12 Osteopenia, unspecified location M85.80 Osteopenia location: unspecified Nocturnal leg cramps G47.62 Vitamin D deficiency E55.9 Episode of recurrent major depressive disorder, unspecified depression episode severity F33.9 Depression Type: major depressive disorder Major depression recurrence: recurrent Active/Remission status: currently active Major depression episode severity: unspecified Overweight (BMI 25.0-29.9) E66.3
[2020-06-16 10:24] VITALS: BP 130/80; PULSE 80; TEMP 36.7; O2SAT 96; BMI 29.7
== END 2020-06-16 11:36 ==
LOC: HO.HMGH 10:05
PROVIDERS: PCP Internal Medicine; Visit Provider Internal Medicine
DX: I25.10 Atherosclerotic heart disease of native coronary artery without angina pectoris (principal); E78.00 Pure hypercholesterolemia, unspecified; F33.9 Major depressive disorder, recurrent, unspecified; E03.9 Hypothyroidism, unspecified; G43.909 Migraine, unspecified, not intractable, without status migrainosus; D50.9 Iron deficiency anemia, unspecified; M51.36 Other intervertebral disc degeneration, lumbar region; M17.11 Unilateral primary osteoarthritis, right knee; D05.12 Intraductal carcinoma in situ of left breast; M85.80 Other specified disorders of bone density and structure, unspecified site; G47.62 Sleep related leg cramps
CPT/HCPCS: 99499

== ENCOUNTER → 2020-08-26 10:00 | Outpatient (RCR) | payer OTHER, SELFPAY ==
--- NOTE | 2020-07-25 14:01 | MHC.PT.EP ---
Addendum entered and electronically signed by Anum Man MD 07/27/20 19:02: I agree with the plan from physical therapy regarding her vestibular rehab. Thank you, Original Note: [facility] Office [place] Office [place] Office [address] Farhad Aragon [address] [phone] F: [phone] F: [phone] F: [phone] F: [phone] Physical Therapy Plan of Care Date of Evaluation: Date of Surgery: Diagnosis: vertigo Assessment: The patient arrived reporting dizziness consistent with vestibular dysfunction. She describes dizziness that is provoked and increased with head and body movement. In right hallpike she had rthymical nystagmus with latency, but it was not purely tosional. I did 2 reps of CRM for right side and 1 rep of [place]. I will do further assessment next session including VOR, and balance. She has slowed all of her movement due to fear of re occurrence and she may have developed some motion intolerance. Frequency and Duration: The patient will be seen 2x/week x 4 weeks. Short Term Goals: 1.Pt to be negative for nystagmus in all diagnostic positions for BPPV to facilitate improved functional movements. Long-Term Goals: 1. For the patient to be negative for nystagmus or reports of vertigo in all diagnostic positions bilaterally to resolution of BPPV in 4 weeks. 2. For the patient to be able to functionally move in all planes and directions without provocation of dizziness to show return to PLOF. 3.For the patient to be educated on symptoms and indications to return to therapy when needed in 4 weeks. Treatment Plan: Modalities to reduce pain, spasms and effusion. Manual therapy to restore motion and function. Therapeutic exercise to improve strength and flexibility. Neuromuscular re-education for posture and balance. Therapeutic activities to return to functional activities of daily living. Electronically signed by: Tina Borden PT DPT Please sign and return to therapist. Thank you for your referral.
== END | disposition home or self-care (01) ==
LOC: HO.PT 07-25 12:58
PROVIDERS: PCP Internal Medicine; Visit Provider Internal Medicine Medical Oncology
DX: R42 Dizziness and giddiness (principal)
CPT/HCPCS: 95992; 97110; 97112; 97162

== ENCOUNTER 2020-09-10 09:23 | Outpatient (REF) | payer OTHER, SELFPAY ==
[2020-09-13 09:06] LABS: HPV mRNA E6/E7 rflx Not Detected (Not Detected)
== END 2020-09-10 09:24 | disposition home or self-care (01) ==
LOC: HO.LAB 09:23
PROVIDERS: PCP Internal Medicine; Visit Provider Advanced Practice Midwife
DX: Z01.419 Encounter for gynecological examination (general) (routine) without abnormal findings (principal); Z11.51 Encounter for screening for human papillomavirus (HPV); N63.20 Unspecified lump in the left breast, unspecified quadrant
CPT/HCPCS: 87624; 88142

== ENCOUNTER 2020-10-03 13:04 | Outpatient (REF) | payer OTHER, SELFPAY ==
--- NOTE | ~2020-10-03 | MM_ITS ---
EXAMINATION: MM DIAGNOSTIC DIGITAL BREAST TOMOSYNTHESIS, BILATERAL CLINICAL INFORMATION: Due for yearly. Clinical breast exam notes palpable fullness upper outer left breast. Prior history left left breast cancer, DCIS 2013. COMPARISON: Mammography: 01/04/2020, 08/15/2018, 07/18/2017, 07/13/2016 TECHNIQUE: Digital breast tomosynthesis is performed in both the craniocaudal and mediolateral oblique views along with computer-aided detection (CAD). Synthesized 2D images are generated from the tomosynthesis. Additional views are obtained: exaggerated left CC, magnification left CC, magnification left ML x2. FINDINGS: There are scattered areas of fibroglandular density (ACR BI-RADS breast composition Category b). Parenchymal pattern is similar to prior studies. There is no interval mass or architectural abnormality or abnormal calcifications. Post therapy changes upper outer quadrant left breast are stable from prior studies including prior left magnification views in 2017. There is no developing density. No skin thickening or coarsening of the John's ligaments. Results are discussed with the patient at time of visit. Patient notes no palpable abnormality left breast. She does note left breast tenderness for years, no changes from past. Patient should be managed based on the clinical impression. If clinically indicated, further evaluation may be considered with surgical consult. Decision to proceed with biopsy should be based on clinical grounds and degree of clinical concern. MM/MM tomosynthesis diagnostic BI IMPRESSION: 1. No mammographic evidence of malignancy or interval changes from prior exams. 2. Stable post therapy changes left breast. ASSESSMENT: BI-RADS 2: Benign RECOMMENDATION: 1. Patient should be managed based on the clinical impression. If clinically indicated, further evaluation may be considered with surgical consult. Decision to proceed with biopsy should be based on clinical grounds and degree of clinical concern. 2. Otherwise, routine annual screening mammography. This patient's information was entered into a reminder system with a target due date for their next mammogram.
== END 2020-10-03 13:05 | disposition home or self-care (01) ==
LOC: HO.MAMMO 13:04
PROVIDERS: PCP Internal Medicine Medical Oncology; Visit Provider Advanced Practice Midwife
DX: N64.4 Mastodynia (principal); N63.20 Unspecified lump in the left breast, unspecified quadrant; Z85.3 Personal history of malignant neoplasm of breast
CPT/HCPCS: 77062; 77066

== ENCOUNTER 2021-08-11 09:20 | Outpatient (REF) | payer OTHER, SELFPAY ==
[2021-08-11 10:05] LABS: MANUAL DIFF FLAG NO
[2021-08-11 10:41] LABS: Eosinophils Absolute Auto 0.1 X10*3/uL (0.0-0.4); Eosinophils Percent Auto 2.4 % (0-4); Hematocrit 38.9 % (37.0-47.0); Hemoglobin 12.9 g/dl (12.0-16.0); Imm Gran Abs Auto 0.01 X10*3/uL (0.00-0.03); Imm Gran Pct Auto 0.3 % (0.0-0.4); Lymphocytes Absolute Auto 0.6 X10*3/uL (1.2-4.9); Lymphocytes Percent Auto 19.5 % (20-40); Mean Corpuscular HGB Conc 33.2 g/dl (31.0-35.0); Mean Corpuscular Hemoglobin 28.9 pg (27.0-33.0); Mean Platelet Volume 10.2 fL (9.4-12.3); Monocytes Absolute Auto 0.2 X10*3/uL (0.1-1.2); Monocytes Percent Auto 7.3 % (2-11); Neutrophils Percent Auto 69.5 % (45-73); Platelet Count 156 X10*3/uL (160-400); Red Blood Count 4.47 X10*6/uL (4.20-5.50); Red Cell Distribution Width 13.5 % (11.0-16.0); White Blood Count 2.9 X10*3/uL (4.8-10.8)
[2021-08-11 11:10] LABS: Appearance Urine HAZY; Color Urine YELLOW; Glucose Urine UA NEG (NEG); Leukocyte Esterase Urine 3+ (NEG); Nitrite Urine NEG (NEG); Specific Gravity - Urine 1.025 (1.005-1.025); UACC Culture Trigger YES; Urine Blood NEG (NEG); Urine Ketones NEG (NEG); Urine Protein NEG (NEG-TRACE)
[2021-08-11 11:30] LABS: Free T4 (Free Thyroxine) 1.23 ng/dL (0.71-1.85); Thyroid Stimulating Hormone 0.91 uIU/mL (0.32-4.0); Vitamin D 25-OH Total 17.8 ng/mL (>30)
[2021-08-11 11:50] LABS: RBC Urine 0 /HPF (0); Squamous Epithelial Cell Urine 2+ /LPF
[2021-08-11 11:51] LABS: Bacteria Urine 2+ /LPF
== END 2021-08-11 09:21 | disposition home or self-care (01) ==
LOC: HO.LAB 09:20
PROVIDERS: PCP Internal Medicine; Visit Provider Internal Medicine
DX: Z00.00 Encounter for general adult medical examination without abnormal findings (principal); E55.9 Vitamin D deficiency, unspecified; E03.9 Hypothyroidism, unspecified; E78.00 Pure hypercholesterolemia, unspecified
CPT/HCPCS: 36415; 81001; 82306; 84439; 84443; 85025; 87086

== ENCOUNTER 2021-10-06 10:02 | Outpatient (REF) | payer OTHER, SELFPAY ==
--- NOTE | ~2021-10-06 | MM_ITS ---
EXAMINATION: MM SCREENING DIGITAL BREAST TOMOSYNTHESIS, BILATERAL CLINICAL INFORMATION: Screening. Asymptomatic. Status post left breast lumpectomy. COMPARISON: Mammography: October 03, 2020 and studies dating back to May 24, 2013 TECHNIQUE: Digital breast tomosynthesis is performed in both the craniocaudal and mediolateral oblique views along with computer-aided detection (CAD). Synthesized 2D images are generated from the tomosynthesis. Additional left breast exaggerated craniocaudal view performed. FINDINGS: There are scattered areas of fibroglandular density (ACR BI-RADS breast composition Category b). There are no new significant masses, abnormal calcifications, or other abnormalities. Postsurgical change upper outer aspect of the left breast again seen. MM/MM tomosynthesis screening BI IMPRESSION: There are no significant changes from prior study. ASSESSMENT: BI-RADS 2: Benign RECOMMENDATION: Routine annual mammography screening. This patient's information was entered into a reminder system with a target due date for their next mammogram.
== END 2021-10-06 10:03 | disposition home or self-care (01) ==
LOC: HO.MAMMO 10:02
PROVIDERS: PCP Internal Medicine; Visit Provider Internal Medicine
DX: Z12.31 Encounter for screening mammogram for malignant neoplasm of breast (principal)
CPT/HCPCS: 77063; 77067

== ENCOUNTER 2021-10-16 09:39 | Outpatient (REF) | payer OTHER, SELFPAY ==
[2021-10-16 12:06] LABS: HBc Num1 0.06 S/CO (0.00-0.79); HIV AB/AG Nonreactive (Nonreactive); HIV Num 1 0.07 S/CO (0.00-0.99); Hepatitis B Core Antibody Nonreactive (Nonreactive); ~HepC Num1 0.05 S/CO (0.00-0.79); ~Hepatitis C Antibody Nonreactive (Nonreactive)
[2021-10-16 12:35] LABS: Syphilis Screen Nonreactive (Nonreactive)
[2021-10-16 14:36] LABS: CT PCR NOT DETECTED (Not Detect.); NG PCR NOT DETECTED (Not Detect.)
[2021-10-17 15:12] LABS: BV Int Neg Control Negative (Negative); BV Int Pos Control Positive (Positive)
== END 2021-10-16 09:40 | disposition home or self-care (01) ==
LOC: HO.LAB 09:39
PROVIDERS: PCP Internal Medicine; Visit Provider Advanced Practice Midwife
DX: Z01.419 Encounter for gynecological examination (general) (routine) without abnormal findings (principal); Z20.2 Contact with and (suspected) exposure to infections with a predominantly sexual mode of transmission; Z11.4 Encounter for screening for human immunodeficiency virus [HIV]
CPT/HCPCS: 36415; 86704; 86780; 86803; 87389; 87480; 87491; 87510; 87591; 87660

== ENCOUNTER 2022-02-11 11:11 | Outpatient (REF) | payer OTHER, SELFPAY ==
[2022-02-11 11:26] LABS: MANUAL DIFF FLAG NO
[2022-02-11 11:47] LABS: Basophils Percent Auto 1.2 % (0-2); Eosinophils Absolute Auto 0.1 X10*3/uL (0.0-0.4); Eosinophils Percent Auto 2.1 % (0-4); Hematocrit 43.9 % (37.0-47.0); Hemoglobin 14.6 g/dl (12.0-16.0); Imm Gran Abs Auto 0.01 X10*3/uL (0.00-0.03); Imm Gran Pct Auto 0.3 % (0.0-0.4); Lymphocytes Absolute Auto 0.6 X10*3/uL (1.2-4.9); Lymphocytes Percent Auto 16.4 % (20-40); Mean Corpuscular HGB Conc 33.3 g/dl (31.0-35.0); Mean Corpuscular Hemoglobin 28.7 pg (27.0-33.0); Mean Corpuscular Volume 86.4 fL (80.0-98.0); Mean Platelet Volume 10.2 fL (9.4-12.3); Monocytes Absolute Auto 0.2 X10*3/uL (0.1-1.2); Monocytes Percent Auto 5.9 % (2-11); Neutrophils Absolute Auto 2.5 x10*3/uL (2.0-8.3); Neutrophils Percent Auto 74.1 % (45-73); Platelet Count 182 X10*3/uL (160-400); Red Blood Count 5.08 X10*6/uL (4.20-5.50); Red Cell Distribution Width 13.2 % (11.0-16.0); White Blood Count 3.4 X10*3/uL (4.8-10.8)
[2022-02-11 12:33] LABS: Alanine Aminotransferase 16 U/L (0-31); Albumin Level 4.6 g/dL (3.5-5.0); Alkaline Phosphatase 67 U/L (39-117); Anion Gap 11 (12-20); Aspartate Amino Transferase 18 U/L (5-31); Bilirubin Total 0.6 mg/dL (0.0-1.0); Blood Urea Nitrogen 12 mg/dL (9-16); Calcium 9.7 mg/dL (8.4-10.2); Carbon Dioxide 30 mmol/L (22-29); Chloride 103 mmol/L (96-108); Cholesterol 273 mg/dL; Estimated Glomerular Filt Rate > 60; Glucose Fasting 94 mg/dL (60-99); HDL Cholesterol 49 mg/dL; LDL Cholesterol Calculated 196 mg/dl; Potassium 4.5 mmol/L (3.3-5.1); Sodium 139 mmol/L (135-145); Thyroid Stimulating Hormone 7.61 uIU/mL (0.32-4.0); Total Protein 7.6 g/dL (6.5-8.0); Triglycerides 144 mg/dL; Vitamin D 25-OH Total 20.4 ng/mL (>30)
[2022-02-11 12:39] LABS: Appearance Urine Clear; Color Urine Yellow; Glucose Urine UA Negative (Negative); Leukocyte Esterase Urine Small (1+) (Negative); Nitrite Urine Negative (Negative); PH 6.5 (5.0-9.0); Specific Gravity - Urine 1.015 (1.005-1.025); UMIC TRIGGER UACC YES; Urine Blood Negative (Negative); Urine Ketones Negative (Negative); Urine Protein Negative (Neg-Trace)
[2022-02-11 12:51] LABS: Bacteria Urine None Seen (None Seen); Hyaline Casts Urine 0-2 /LPF (0-2); RBC Urine 0-2 /HPF (0-2); Squamous Epithelial Cell Urine 0-2 /HPF (0-2); UACC Culture Trigger YES; WBC Urine 0-5 /HPF (0-5)
== END 2022-02-11 11:12 | disposition home or self-care (01) ==
LOC: HO.LAB 11:11
PROVIDERS: PCP Internal Medicine; Visit Provider Internal Medicine
DX: E03.9 Hypothyroidism, unspecified (principal); E55.9 Vitamin D deficiency, unspecified; I10 Essential (primary) hypertension; E78.00 Pure hypercholesterolemia, unspecified
CPT/HCPCS: 36415; 80053; 80061; 81001; 82306; 84439; 84443; 85025; 87086

== ENCOUNTER 2023-06-23 13:28 | Outpatient (AMB) | payer OTHER, SELFPAY ==
--- NOTE | 2023-06-23 13:46 | MHC.OFFVIS ---
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 Gap in care due to lack of insurance. She is doing well with concerns: Itching rash under her breasts and groins 2-3months. She reports postmenopausal bleeding episodes last year, last episode was in May. Attempting to eat a healthy diet with calcium and vitamin D and stays active with exercise walking daily. Currently not sexually active. STI testing offered; she accepts. Last pap smear; 2020. History of CINI and positive HPV. Last mammogram; 2021. Colonoscopy is UTD. History of breast cancer 2005. Used Tamoxifen for 5 years. [facility] Medical History Cervical disc disease Dysplasia of cervix, low grade (LEIDY 1) Overweight (BMI 25.0-29.9) Vitamin D deficiency Nocturnal leg cramps Osteopenia Primary osteoarthritis of right knee Lumbar degenerative disc disease Iron deficiency anemia Migraine Acquired hypothyroidism Pure hypercholesterolemia Coronary artery disease Benign paroxysmal vertigo Benign tumor of thyroid gland Depression Hypertension Surgical History Hx of colonoscopy (~06/17/15) H/O thyroidectomy Hx of tonsillectomy History of placement of ear tubes History of lumpectomy of left breast Family History Other Heart disease No family history of cancer Social History (Updated 06/23/23 @ 14:01 by VILMA Elizalde) Household Members: Family and Children Housing: Apartment Are you a primary medicare specialist to a significant other at home: No Do you presently have visiting nurse or other home services: No Alcohol intake: former Comment: pt states feels less dizzy Patient Tobacco Use Status: Never used Tobacco Second Hand Smoke Exposure: Yes service: No Current occupational status: employed 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 She is . She has 3 children. Cognitive needs: No Hearing needs: No Vision needs: Yes Female Reproductive History Menstrual Total pregnancies: 3 Full term: 3 Number of Living Children: 3 Date of last pap smear: 09/10/20 (neg pap and hpv) History of abnormal pap smear: Yes (see intake note) Date of Mammogram: 10/06/21 (Birad 2) Review of Systems Const All systems reviewed & are unremarkable except as noted in HPI and below Reports as per HPI Eyes Reports no additional complaints ENT Reports no additional complaints Card Reports no additional complaints Resp Reports no additional complaints GI Reports as per HPI and Reports no additional complaints Reports as per HPI Musc Reports no additional complaints Skin/Breast Reports as per HPI Neuro Reports no additional complaints Psych Reports no additional complaints Endo Reports no additional complaints Genaro/Lymph Reports no additional complaints Aller/Immun Reports no additional complaints Physical Exam Vital Signs: Last Vital Signs BP 100/66 06/23/23 13:55 BMI result Body Mass Index 26.8 Const General: cooperative, healthy appearing, no acute distress, well developed and alert Orientation/consciousness: patient oriented x3 HEENT Head: Yes normal to inspection Eyes General: appearance normal, both eyes and all related structures Neck Neck: Yes normal visual inspection Thyroid: Thyroid normal Chest Chest palpation & inspection: normal inspection of the chest and other (no puckering, dimpling, peau de orange, retraction, discharge, masses) Breast/axilla inspection: normal inspection of the breasts Breast/axilla palpation: normal palpation of the breasts Resp Effort & Inspection: normal respiratory effort GI Inspection: Yes normal to inspection Palpation (GI): Soft to palpation Rectal Exam - Female: deferred Other: Vulvar fungal rash General: Yes bladder normal to palpation External Female Exam: normal external appearance and normal appearance of the urethra Speculum Exam - Vagina: normal appearance of the vagina, normal palpation, normal vaginal discharge and vagina atrophic Speculum Exam - Cervix: normal appearance of the cervix and normal palpation Bimanual exam- vagina & uterus: normal bimanual exam, normal palpation, uterine size normal, bladder normal to palpation, normal palpation and non-tender Bimanual Exam- Adnexa, other: no masses Skin Other: Prominent fungal rash under the breasts and in the vulva and groin region General skin exam: no rashes or lesions noted Rashes: no rashes Neuro General: patient oriented x3 Cognition (Neuro): normal cognition Extrem General: Yes normal to inspection Psych Attitude: cooperative Thought process: Normal thought process present Assessment & Plan Assessment & Plan (1) Encounter for well woman exam with routine gynecological exam: Code(s): Z01.419 - Encounter for gynecological examination (general) (routine) without abnormal findings (2) Postmenopausal bleeding: Code(s): N95.0 - Postmenopausal bleeding Plan Discussed: Current recommendations for pap smears per ASCCP guidelines. Breast awareness, periodic self breast exams and yearly mammogram. Maintain a healthy lifestyle, well balanced diet including Calcium 1,200 mg and Vitamin D 600 IU daily, and routine exercise. Plan pelvic ultrasound and EMB at the follow-up, pre procedure Tylenol or ibuprofen with food advise 1 hour before her visit. Rx. sent in for fungal treatment, await BV results for further plan of care. Contact the office with any further postmenopausal bleeding. Patient verbalizes understanding and agrees to the plan of care. She was given opportunity to ask questions and all questions were answered to the best of my ability. RTO in 1 year for annual supervisor stripping exam. This note is constructed using voice recognition software. While every effort has been made to ensure accuracy, truck technician errors may have been included. Orders: Orders CT NG by PCR Today N76.0 - Acute vaginitis, N95.0 - Postmenopausal bleeding Bacterial Vaginosis Panel Today N76.0 - Acute vaginitis, N95.0 - Postmenopausal bleeding Pap Smear Today Z01.419 - Encounter for gynecological examination (general) (routine) without abnormal findings US pelvic and transvaginal Today N95.0 - Postmenopausal bleeding Medications: New clotrimazole-betamethasone 1-0.05 % 1 appl topical BID 7 days 45 grams 1RF fungal rash Coding Level of Care Code Est Pt Prev Care 40-64y(30397) Diagnoses Encounter for well woman exam with routine gynecological exam Z01.419 Postmenopausal bleeding N95.0
[2023-06-23 13:55] VITALS: BP 100/66; BMI 26.8
== END 2023-06-23 14:30 | disposition home or self-care (01) ==
PROVIDERS: PCP Internal Medicine; Visit Provider Advanced Practice Midwife
DX: Z01.419 Encounter for gynecological examination (general) (routine) without abnormal findings (principal); N95.0 Postmenopausal bleeding
CPT/HCPCS: 99396

== ENCOUNTER 2023-06-23 13:28 | Outpatient (REF) | payer OTHER, SELFPAY ==
[2023-06-30 23:29] LABS: HPV mRNA E6/E7 rflx Not Detected (Not Detected)
== END 2023-06-23 13:29 | disposition home or self-care (01) ==
LOC: HO.LNP 13:28
PROVIDERS: PCP Internal Medicine; Visit Provider Advanced Practice Midwife
DX: Z01.419 Encounter for gynecological examination (general) (routine) without abnormal findings (principal); N95.0 Postmenopausal bleeding; B35.6 Tinea cruris; Z11.3 Encounter for screening for infections with a predominantly sexual mode of transmission; Z11.51 Encounter for screening for human papillomavirus (HPV); Z85.3 Personal history of malignant neoplasm of breast; Z79.810 Long term (current) use of selective estrogen receptor modulators (SERMs); Z59.7 Insufficient social insurance and welfare support
CPT/HCPCS: 87624; 88142; 99396

== ENCOUNTER 2023-06-23 14:30 | Outpatient (REF) | payer OTHER, SELFPAY ==
[2023-06-23 17:12] LABS: CT PCR NOT DETECTED (Not Detect.); NG PCR NOT DETECTED (Not Detect.)
[2023-06-24 13:09] LABS: BV Int Neg Control Negative (Negative); BV Int Pos Control Positive (Positive)
== END 2023-06-23 14:31 | disposition home or self-care (01) ==
LOC: HO.LAB 14:30
PROVIDERS: Visit Provider Advanced Practice Midwife
DX: N76.0 Acute vaginitis (principal); N95.0 Postmenopausal bleeding
CPT/HCPCS: 0353U; 87480; 87510; 87660

== ENCOUNTER 2023-06-28 15:24 | Outpatient (AMB) | payer OTHER, SELFPAY ==
--- NOTE | 2023-06-28 15:34 | MHC.PC.OV ---
Vital Signs 06/28/23 15:37 Height 5 ft 10 in Weight 186 lb 4 oz BMI 26.7 BP 110/70 Blood Pressure Location Lt brachial Position Sitting Pulse 78 Pulse Source Pulse Oximeter Pulse Oximetry (%) 90 L Oxygen Delivery Method Room Air Intake Visit Reasons: rutine Intake Note: Patient is here to follow up on Vertigo, LDDD, CAD,, Hypercholesterolemia. Skip Locator Required: No Leasing Associate: Not Required per policy Accompanied by: Self / Same As Patient Allergies No Known Allergies Allergy (Verified 06/28/23 16:07) Medication List - Last Reconciled 06/28/23 by Gerry Dias MD amitriptyline 50 mg (2 x 25 mg) PO DAILY 90 days citalopram 20 mg PO DAILY 90 days clotrimazole-betamethasone 1-0.05 % 1 appl topical BID 7 days ferrous sulfate (Iron (ferrous sulfate)) 325 mg PO BID levothyroxine 150 mcg PO DAILY 90 days meclizine 25 mg PO TID PRN 30 days metoprolol succinate ER 25 mg PO DAILY 90 days metronidazole 500 mg PO BID 7 days Tobacco use date assessed: 06/28/23 Dental Screening Dental Screen Date: 06/28/23 Did you have a dental visit in the last 12 months?: No Did you have a dental problem in the last 6 months where you did not have access to dental care?: No Was dental information given to patient?: No HPI rutine HPI Details Patient comes in today for her follow up visit - has not been back in over a year States that she lost her health insurance when the place that she was working at previously closed its business so he could not come in for her appointments due to no insurance coverage She is now back at work (at [employer]) and has health insurance coverage again States that she currently feels okay She denies any headaches or dizziness Denies any chest pains, no shortness of breath No nausea/vomiting, no abdominal pain No change in bowel habits noted [facility] Medical History Cervical disc disease Dysplasia of cervix, low grade (LEIDY 1) Overweight (BMI 25.0-29.9) Vitamin D deficiency Nocturnal leg cramps Osteopenia Primary osteoarthritis of right knee Lumbar degenerative disc disease Iron deficiency anemia Migraine Acquired hypothyroidism Pure hypercholesterolemia Coronary artery disease Benign paroxysmal vertigo Benign tumor of thyroid gland Depression Hypertension Surgical History Hx of colonoscopy (~06/17/15) H/O thyroidectomy Hx of tonsillectomy History of placement of ear tubes History of lumpectomy of left breast Family History Other Heart disease No family history of cancer Social History Household Members: Family and Children Housing: Apartment Are you a primary lawn care worker to a significant other at home: No Do you presently have visiting nurse or other home services: No Alcohol intake: former Comment: pt states feels less dizzy Patient Tobacco Use Status: Never used Tobacco e-Cigarette/Vaping Use: Never Used Second Hand Smoke Exposure: Yes service: No Current occupational status: employed 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 She is . She has 3 children. Cognitive needs: No Hearing needs: No Vision needs: Yes Questionnaire PHQ-9 Over the last 2 weeks, how often have you been bothered by any of the following problems? 1. Little interest or pleasure in doing things: more than half the days 2. Feeling down, depressed, or hopeless: more than half the days 3. Trouble falling or staying asleep, or sleeping too much: more than half the days 4. Feeling tired or having little energy: nearly every day 5. Poor appetite or overeating: not at all 6. Feeling bad about yourself - or that you are a failure or have let yourself or your family down: more than half the days 7. Trouble concentrating on things, such as reading the newspaper or watching television: not at all 8. Moving or speaking so slowly that other people could have noticed. Or the opposite - being so fidgety or restless that you have been moving around a lot more than usual: not at all 9. Thoughts that you would be better off or of hurting yourself in some way: more than half the days Total score: 13 Depression Screening Interpretation: Positive Depression Screening Follow-up: Existing condition and In treatment Depression Screening Done: Yes 54898 - PHQ-9 Billing: Yes Source: Developed by Drs. Manny Gardiner, Rashida Wynn, Livan Vigil and colleagues, with an educational slade from [employer]. Thrive Questionnaire Date Thrive assessed: 06/28/23 I am a: Patient What is your living situation today?: I have a steady place to live Within the past 12 months, did the food you bought not last and you didn't have the money to get more?: Never true Within the past 12 months, did you worry whether your food would run out before you got money to buy more?: Never true Do you have trouble paying for medicines?: No Do you have trouble getting transportation to medical appointments?: No Do you have trouble paying your heating and electricity bill?: No Do you have trouble taking care of your child, family member or friend?: No Do you have trouble with day-to-day activities such as bathing, preparing meals, shopping, managing finances, etc.?: No Are you currently unemployed and looking for a job?: No Are you interested in more education?: No Currently or been in a relationship where the following occur: no concerns reported THRIVE Score: 0 AUDIT C Alcohol Use Questionnaire (AUDIT-C) 1. How often do you have a drink containing alcohol?: Never 3. How often do you have six or more drinks on one occasion?: Never Total Score: 0 Score Reviewed/Action Taken: Yes ALISA-7 AMB Questionnaire ALISA-7 Date ALISA - 7 assessed: 06/28/23 Feeling nervous, anxious, or on edge: 0 = Not at all Not being able to stop or control worryin = Not at all Worrying too much about different things: 0 = Not at all Trouble relaxin = Not at all Being so restless that it is hard to sit still: 0 = Not at all Becoming easily annoyed or irritable: 0 = Not at all Feeling afraid as if something awful might happen: 0 = Not at all Total ALISA-7 score (0-4 normal; 5-9 mild; 10-14 moderate; 15-21 severe): 0 Source: Developed by Drs. Manny Gardiner, Rashida Wynn, Livan Vigil and colleagues, with an educational slade from [employer]. Review of Systems Const Denies chills, Denies fatigue, Denies fever(s) and Denies headache(s) ENT Denies dysphagia, Denies dizziness, Denies otalgia, Denies headache(s), Reports neck pain, Denies odynophagia and Denies sore throat Card Denies chest pain, Denies palpitations and Denies dyspnea Resp Denies cough and Denies dyspnea GI Denies abdominal pain, Denies constipation, Denies dysphagia, Denies heartburn, Denies diarrhea, Denies nausea, Denies odynophagia and Denies vomiting Denies difficulty voiding, Denies nocturia, Denies dysuria and Denies urinary urgency Musc Reports back pain and Reports neck pain Skin/Breast Denies rash Neuro Denies dizziness and Denies headache(s) Endo Denies fatigue and Denies palpitations Physical exam (Primary Care) Vital Signs: Last Vital Signs Pulse 78 06/28/23 15:37 BP 110/70 06/28/23 15:37 Pulse Ox 90 L 06/28/23 15:37 Oxygen Delivery Method Room Air 06/28/23 15:37 BMI result Body Mass Index 26.7 Tobacco/Smoking Status: Tobacco use Status Tobacco use date assessed 06/28/23 06/28/23 15:44 Patient Tobacco Use Status Never used Tobacco 06/28/23 15:44 e-Cigarette/Vaping Use Never Used 06/28/23 15:44 PHQ-9: PHQ-9 Score PHQ-9: Total score 13 06/28/23 16:12 Depression Screening Interpretation: Positive Depression Screening Follow-up: Existing condition and In treatment Thrive Assessment: Date of Thrive Assessment Date Thrive assessed 06/28/23 06/28/23 15:44 Currently or been in a relationship where the following occur: no concerns reported Const General: no acute distress and alert HENMT Ears: TM's normal bilaterally and EAC's normal Throat: Yes posterior oropharynx normal and Yes tonsils normal (no TP congestion) Neck Neck: Yes no lymphadenopathy and Yes supple Thyroid: Thyroid normal Resp Auscultation: clear to auscultation bilaterally, no rales and no wheezes Cardio Rate: regular rate Rhythm: regular rhythm Heart sounds: no murmurs GI Palpation (GI): Soft to palpation and nontender Auscultation: normal bowel sounds General: Yes no CVA tenderness Back/Spine/Pelvis Back: no CVA tenderness Cervical Spine: Cervical spine tenderness Thoracic/Lumbar Spine: lumbar spinal tenderness Skin Rashes: no rashes Extrem General: Yes no clubbing, cyanosis or edema Assessment and Plan Assessment & Plan (1) Coronary artery disease: Comment: Stress EKG done on 12/05/2018 was negative for ischemia; myocardial perfusion studies done on 11/21/2018 revealed (+) equivocal apical ischemia but no transient ischemic dilatation is seen; gated LVEF was at 69% Code(s): I25.10 - Atherosclerotic heart disease of [place] coronary artery without angina pectoris Qualifiers: Associated angina: without angina Coronary Disease-Associated Artery/Lesion type: [place] artery [place] vs. transplanted heart: [place] heart Qualified Code(s): I25.10 - Atherosclerotic heart disease of [place] coronary artery without angina pectoris Plan: Patient has been asymptomatic from cardiac standpoint Continue Metoprolol ER 25 mg QD and Aspirin 81 mg QD Follow up with cardiology as scheduled (2) Pure hypercholesterolemia: Code(s): E78.00 - Pure hypercholesterolemia, unspecified Plan: Reinforced low cholesterol diet She has not had her fasting lipids rechecked in a while - was still elevated at total cholesterol of 273 and LDL cholesterol of 196 mg/dl when they were last checked in February 2022 Will have her recheck her fasting lipids GRIFFIN for follow up (3) Acquired hypothyroidism: Code(s): E03.9 - Hypothyroidism, unspecified Plan: Continue Levothyroxine 150 mcg QD Will recheck her TFTs GRIFFIN (4) Migraine: Code(s): G43.909 - Migraine, unspecified, not intractable, without status migrainosus Qualifiers: Intractability: not intractable Migraine type: unspecified Status migrainosus presence: without status migrainosus Qualified Code(s): G43.909 - Migraine, unspecified, not intractable, without status migrainosus Plan: Brain MRI done in May 2020 came out normal except for scattered chronic small vessel ischemic changes within the periventricular white matter EEG, NCV and EMG done were all reportedly normal She was started on Amitriptyline 25 mg Q PM by neurology - states that they helped somewhat in the beginning but she started getting headaches on a daily basis again after a while We increased her dose to 50 mg Q HS when she was last seen and states that her headaches have been under control since She was seeing neurology for follow up but has not been seen by Dr. Brewster in a while now and is advised to call the neurology office to schedule a follow up appt GRIFFIN (5) Iron deficiency anemia: Code(s): D50.9 - Iron deficiency anemia, unspecified Qualifiers: Iron deficiency anemia type: unspecified iron deficiency Qualified Code(s): D50.9 - Iron deficiency anemia, unspecified Plan: Continue Ferrous Sulfate 325 mg BID Will recheck her CBC for follow up Follow up with hematology (Dr. Man) as scheduled (6) Lumbar degenerative disc disease: Code(s): M51.36 - Other intervertebral disc degeneration, lumbar region Plan: Reinforced activity and weight-lifting restrictions (+) mild lumbar spondylosis was seen on her lumbar spine MRI previously done in March 2016 (7) Cervical disc disease: Code(s): M50.90 - Cervical disc disorder, unspecified, unspecified cervical region Plan: CT of the cervical spine done in May 2020 revealed (+) significant multilevel spondylosis and facet arthritis of the cervical spine (8) Primary osteoarthritis of right knee: Code(s): M17.11 - Unilateral primary osteoarthritis, right knee Plan: Right knee x-rays done in January 2017 and January 2018 revealed (+) mild OA changes but patient feels that her knee pain has gotten a lot worse over the past couple of years Follow up with orthopedics as scheduled (9) Osteopenia: Code(s): M85.80 - Other specified disorders of bone density and structure, unspecified site Qualifiers: Osteopenia location: unspecified Qualified Code(s): M85.80 - Other specified disorders of bone density and structure, unspecified site Plan: BMD last done in December 2019 - revealed (+) osteopenia that is mostly unchanged from previous BMD on 08/02/2017 and from her baseline in 2014 She is encouraged to continue regular exercise and physical activity as tolerated to help manage/maintain her BMD Will continue to monitor BMD every 2 to 3 years (10) Vitamin D deficiency: Code(s): E55.9 - Vitamin D deficiency, unspecified Plan: Continue Vitamin D3 5000 units QD Will recheck her Vitamin D level for follow up (11) Ductal carcinoma in situ (DCIS) of left breast: Comment: Completed 5 years of oral Tamoxifen Code(s): D05.12 - Intraductal carcinoma in situ of left breast Plan: Follow up with oncology as scheduled for continuing surveillance Repeat mammogram last done on 10/06/2021 came out negative (12) Nocturnal leg cramps: Code(s): G47.62 - Sleep related leg cramps Plan: Continue Tizanidine 4 mg Q HS PRN (13) Benign paroxysmal vertigo: Code(s): H81.10 - Benign paroxysmal vertigo, unspecified ear Qualifiers: Laterality: unspecified laterality Qualified Code(s): H81.10 - Benign paroxysmal vertigo, unspecified ear Plan: Continue Meclizine 25 mg PRN To consider referral again to physical therapy for canalith positioning if symptoms get worse (14) Depression: Code(s): F32.9 - Major depressive disorder, single episode, unspecified Qualifiers: Active/Remission status: currently active Depression Type: major depressive disorder Major depression episode severity: unspecified Major depression recurrence: recurrent Qualified Code(s): F33.9 - Major depressive disorder, recurrent, unspecified Plan: Continue Citalopram 20 mg QD (15) Overweight (BMI 25.0-29.9): Code(s): E66.3 - Overweight Plan: Reinforced diet/exercise as tolerated/lose weight Plan To return in 6 months for her annual physical examination Orders: Orders Complete Blood Count Auto Diff Today D64.9 - Anemia, unspecified Comprehensive [place]. Panel Fast Today E78.00 - Pure hypercholesterolemia, unspecified UA CC w/rflx Micro + Cult Today R30.0 - Dysuria Vitamin B12 and Folate Today E53.8 - Deficiency of other specified B group vitamins Magnesium Today E83.42 - Hypomagnesemia, G47.62 - Sleep related leg cramps Free T4 (Free Thyroxine) Today E03.9 - Hypothyroidism, unspecified Lipid Panel Today E78.00 - Pure hypercholesterolemia, unspecified Vitamin D 25-OH Total Today E55.9 - Vitamin D deficiency, unspecified Coding Level of Care Code Est Pt Level 4 (59288) Diagnoses Coronary artery disease involving [place] coronary artery of [place] heart without angina pectoris I25.10 Associated angina: without angina Coronary Disease-Associated Artery/Lesion type: [place] artery [place] vs. transplanted heart: [place] heart Pure hypercholesterolemia E78.00 Acquired hypothyroidism E03.9 Migraine without status migrainosus, not intractable, unspecified migraine type G43.909 Intractability: not intractable Migraine type: unspecified Status migrainosus presence: without status migrainosus Iron deficiency anemia, unspecified iron deficiency anemia type D50.9 Iron deficiency anemia type: unspecified iron deficiency Lumbar degenerative disc disease M51.36 Cervical disc disease M50.90 Primary osteoarthritis of right knee M17.11 Osteopenia, unspecified location M85.80 Osteopenia location: unspecified Vitamin D deficiency E55.9 Ductal carcinoma in situ (DCIS) of left breast D05.12 Nocturnal leg cramps G47.62 Benign paroxysmal vertigo, unspecified laterality H81.10 Laterality: unspecified laterality Episode of recurrent major depressive disorder, unspecified depression episode severity F33.9 Active/Remission status: currently active Depression Type: major depressive disorder Major depression episode severity: unspecified Major depression recurrence: recurrent Overweight (BMI 25.0-29.9) E66.3
[2023-06-28 15:37] VITALS: BP 110/70; PULSE 78; O2SAT 90; BMI 26.7
== END 2023-06-28 16:14 | disposition home or self-care (01) ==
PROVIDERS: PCP Internal Medicine; Visit Provider Internal Medicine
DX: I25.10 Atherosclerotic heart disease of native coronary artery without angina pectoris (principal); F33.9 Major depressive disorder, recurrent, unspecified; Z68.26 Body mass index [BMI] 26.0-26.9, adult; E66.3 Overweight; E78.00 Pure hypercholesterolemia, unspecified; E03.9 Hypothyroidism, unspecified; G43.909 Migraine, unspecified, not intractable, without status migrainosus; D50.9 Iron deficiency anemia, unspecified; M51.36 Other intervertebral disc degeneration, lumbar region; M50.90 Cervical disc disorder, unspecified, unspecified cervical region; M17.11 Unilateral primary osteoarthritis, right knee; M85.80 Other specified disorders of bone density and structure, unspecified site
CPT/HCPCS: 99214

== ENCOUNTER 2023-06-30 14:51 | Outpatient (REF) | payer OTHER, SELFPAY ==
--- NOTE | ~2023-06-30 | US_ITS ---
EXAMINATION: US PELVIS COMPLETE CLINICAL INFORMATION: Postmenopausal bleeding. COMPARISON: Pelvic ultrasound dated 03/23/2016. TECHNIQUE: Transabdominal and transvaginal imaging were performed. FINDINGS: The uterus is of normal size and echogenicity, measuring 8.8 x 5.2 x 6.5 cm. The uterus is anteverted and anteflexed. A regular homogeneous endometrium is identified measuring 0.6 cm. FIBROIDS: There are 2 fibroids seen. 1. Location: Posterior upper body, myometrial. Size: 1.7 x 1.4 x 1.5 cm. Prior: 2.4 x 1.5 x 2.3 Fibroid characteristics: Heterogeneous echotexture. 2. Location: Anterior upper body, subendometrial. Size: 3.6 x 3.4 x 3.3 cm. Prior: 5.4 x 4.3 x 4.6 cm. Fibroid characteristics: Heterogeneous echotexture. Both ovaries are of normal size and echogenicity. [The ovaries show normal doppler flow.] The right ovary measures 2.1 x 1.6 x 1.8 cm, for a volume of 3.2 mL. The left ovary measures 1.7 x 1.4 x 1.6 cm, for a volume of 2.0 mL. There is no pelvic free fluid. No adnexal mass is seen. US/US pelvic and transvaginal IMPRESSION: There are uterine fibroids, as detailed. The examination is otherwise unremarkable.
== END 2023-06-30 14:52 | disposition home or self-care (01) ==
LOC: HO.US 14:51
PROVIDERS: PCP Internal Medicine; Visit Provider Advanced Practice Midwife
DX: N95.0 Postmenopausal bleeding (principal)
CPT/HCPCS: 76830; 76856

== ENCOUNTER 2023-07-19 11:43 | Outpatient (REF) | payer OTHER, SELFPAY ==
--- NOTE | ~2023-07-19 | MM_ITS ---
EXAMINATION: BONE DENSITOMETRY CLINICAL INDICATION: Other specified disorder of bone density and structure. COMPARISON: Previous BD dated 01/04/2020 and baseline BD dated 11/07/2012. TECHNIQUE: Using a [email or web address] DXA System (software version: 13.1) manufactured by [employer], dual-energy x-ray absorptiometry was performed of the lumbar spine and left hip. The images are of good technical quality. Summary results are attached. FINDINGS: LEFT FEMUR, NECK: Current: BMD 0.843 g/cm2, Z-score -0.7, T-score -1.4, osteopenia. Prior: BMD 0.836 g/cm2. Baseline: BMD 0.871 g/cm2. LEFT FEMUR, TOTAL: Current: BMD 0.824 g/cm2, Z-score -1.1, T-score -1.5, osteopenia, 2.8% decrease from previous, 3.2% decrease from baseline (<5% change is not significant). Prior: BMD 0.848 g/cm2. Baseline: BMD 0.851 g/cm2. AP SPINE L1-L4: Current: BMD 1.133 g/cm2, Z-score 0.0, T-score -0.4, normal, 9.9% decrease from previous, 9.4% decrease from baseline (<5% change is not significant). Prior: BMD 1.258 g/cm2. Baseline: BMD 1.251 g/cm2. IDENTIFIED RISK FACTORS: Menopause. HISTORY OF FRACTURE: None listed. MEDICATIONS: None listed. MM/XR DEXA axial skeleton IMPRESSION: 1. DIAGNOSIS: Osteopenia based on the lowest T-score value of -1.5 in the total femur applying World Health Organization criteria. 2. 10-YEAR FRACTURE RISK PREDICTION, FRAX: Major osteoporotic fracture (clinical spine, forearm, hip or shoulder) 7.3%. Hip fracture 0.5%. 3. Treatment Recommendations: NOF guidelines recommend consideration for treatment in postmenopausal women and men age 50 and older presenting with the following: -A hip or vertebral (clinical or morphometric) fracture. -T-score less than or equal to -2.5 at the femoral neck or spine after appropriate evaluation to exclude secondary causes. -Low bone mass at the hip or spine and a 10-year fracture probability by FRAX of greater than or equal to 3% for hip fracture or greater than or equal to 20% for major osteoporotic fracture based on the [place] adapted WHO algorithm. 4. Other Recommendations: All treatment decisions require clinical judgment and consideration of individual patient factors, including patient preferences, comorbidities, previous drug use, risk factors not captured in the FRAX model (e.g. frailty, falls, vitamin D deficiency, increased bone turnover, interval significant decline in bone density) and possible under or overestimation of fracture risk by FRAX. Additional medical evaluation for secondary cause of low bone mineral density may be appropriate. FUTURE SCAN RECOMMENDATION: People with diagnosed cases of osteoporosis or at high risk for fracture should have regular bone mineral density tests. For patients eligible for Medicare, routine testing is allowed once every 2 years. The testing frequency can be increased to one year for patients who have rapidly progressing disease, those who are receiving or discontinuing medical therapy to restore bone mass, or have additional risk factors.
== END 2023-07-19 11:44 | disposition home or self-care (01) ==
LOC: HO.MAMMO 11:43
PROVIDERS: PCP Internal Medicine; Visit Provider Internal Medicine Medical Oncology
DX: Z13.820 Encounter for screening for osteoporosis (principal); M85.80 Other specified disorders of bone density and structure, unspecified site
CPT/HCPCS: 77080

== ENCOUNTER 2023-07-29 14:57 | Outpatient (AMB) | payer OTHER, SELFPAY ==
--- NOTE | 2023-07-29 15:08 | MHC.OFFVIS ---
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 She is known history of fibroids. She also reports the medication was helpful for her fungal rash under her breast, is concerned about some vaginal irritation and burning externally, declines exam today. Recently diagnosed with BV and was treated with the oral regimen. She is also experiencing some dermatitis of her hands following nail treatment at a spa. FORMERLY [facility], [facility] Medical History Cervical disc disease Dysplasia of cervix, low grade (LEIDY 1) Overweight (BMI 25.0-29.9) Vitamin D deficiency Nocturnal leg cramps Osteopenia Primary osteoarthritis of right knee Lumbar degenerative disc disease Iron deficiency anemia Migraine Acquired hypothyroidism Pure hypercholesterolemia Coronary artery disease Benign paroxysmal vertigo Benign tumor of thyroid gland Depression Hypertension Surgical History Hx of colonoscopy (~06/17/15) H/O thyroidectomy Hx of tonsillectomy History of placement of ear tubes History of lumpectomy of left breast Family History Other Heart disease No family history of cancer Social History Household Members: Family and Children Housing: Apartment Are you a primary healthcare associate to a significant other at home: No Do you presently have visiting nurse or other home services: No Alcohol intake: former Comment: pt states feels less dizzy Patient Tobacco Use Status: Never used Tobacco e-Cigarette/Vaping Use: Never Used Second Hand Smoke Exposure: Yes service: No Current occupational status: employed 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 She is . She has 3 children. Cognitive needs: No Hearing needs: No Vision needs: Yes Review of Systems Const All systems reviewed & are unremarkable except as noted in HPI and below Endo Reports no additional complaints Physical Exam Vital Signs: Last Vital Signs BP 108/66 07/29/23 15:11 BMI result Body Mass Index 26.6 Const General: cooperative, healthy appearing and no acute distress Psych Appearance: well kempt Attitude: cooperative Thought process: Normal thought process present Assessment & Plan Assessment & Plan (1) Fibroid: Code(s): D21.9 - Benign neoplasm of connective and other soft tissue, unspecified Category: Medical (2) Encounter to discuss test results: Code(s): Z71.2 - Person consulting for explanation of examination or test findings (3) Postmenopausal bleeding: Code(s): N95.0 - Postmenopausal bleeding (4) Vulvar irritation: Code(s): N90.89 - Other specified noninflammatory disorders of vulva and perineum Plan Discussed ultrasound findings: To fibroids, smaller than previous exam. Endometrial lining 0.6 mm, patient was to have an EMB today but is deferred due to her family member waiting for her in the car, she agrees to return to the office soon. Reviewed pre procedure planning with the use of either Tylenol or ibuprofen [id number] per manufacture's recommendation to take with food and half fluids 1 hour before her endometrial biopsy. Counseled re: Leiomyoma: common pelvic neoplasm. Differential diagnosis-may include leiomyosarcoma which is a rare uterine sarcoma 3-7/100,000, difficult to distinguish from fibroids on ultrasound from uterine sarcoma's. Unlikely any single test will have a highly positive predictive value. Hysterectomy is not recommended for sole purpose of excluding malignant neoplasm. Report any PMB/AUB. Pelvic pressure, bloating, or pain. Expectant management follow up yearly for stability. Referral to MD if indicated for level of care. Skin care-she is interested in using the topical cream for the vulvar region over the weekend and has refills at home. Declined exam today. All of her questions and concerns were addressed to the best of my ability and shared decision making. She is agreeable to the plan of care. This note is constructed using voice recognition software. While every effort has been made to ensure accuracy, manager commercial sales errors may have been included. Orders: Orders US pelvic and transvaginal 05/21/24 D21.9 - Benign neoplasm of connective and other soft tissue, unspecified Coding Level of Care Code Est Pt Level 3 (42386) Diagnoses Fibroid D21.9 Encounter to discuss test results Z71.2 Postmenopausal bleeding N95.0 Vulvar irritation N90.89
[2023-07-29 15:11] VITALS: BP 108/66; BMI 26.6
== END 2023-07-29 15:45 | disposition home or self-care (01) ==
LOC: HO.HWS 14:57
PROVIDERS: PCP Internal Medicine; Visit Provider Advanced Practice Midwife
DX: D21.9 Benign neoplasm of connective and other soft tissue, unspecified (principal); Z71.2 Person consulting for explanation of examination or test findings; N95.0 Postmenopausal bleeding; N90.89 Other specified noninflammatory disorders of vulva and perineum
CPT/HCPCS: 99213

== ENCOUNTER → 2023-07-29 14:57 | Outpatient (BNVA) | payer OTHER, SELFPAY | PROVIDERS: PCP Internal Medicine; Visit Provider Advanced Practice Midwife | DX: Z71.2 Person consulting for explanation of examination or test findings (principal); N95.0 Postmenopausal bleeding; N90.89 Other specified noninflammatory disorders of vulva and perineum; D21.6 Benign neoplasm of connective and other soft tissue of trunk, unspecified | CPT/HCPCS: 99212 ==

== ENCOUNTER 2023-07-31 10:03 | Emergency (ER) | payer OTHER, SELFPAY ==
[2023-07-31 10:33] VITALS: BP 130/91; PULSE 96; RESP 18; TEMP 36.5; O2SAT 97; BMI 26.7
--- NOTE | 2023-07-31 11:40 | ED.SKABFB ---
HPI - Skin/Abscess/Foreign Bdy General Chief complaint: Skin/Abscess/Foreign Body Stated complaint: painful blisters on hands, unknown cause Time Seen by Provider: 07/31/23 11:08 Source: patient Mode of arrival: ambulatory Limitations: no limitations History of Present Illness HPI narrative: 58 Year old female with a history of hypertension, hyperlipidemia, vertigo, anemia, anxiety, depression presents the ER with complaints of itching/burning rash to both hands x5 days. patient reports she noticed the rash initially as blisters after getting her nails done at a nail salon. The skin then started peeling and has become more painful as it has peeled. She denies any fevers, chills, difficulty moving her fingers. No lesions in the mouth sore on the feet. No recent sexual activity or concern for STI. Related Data Previous Rx's ?Medication ?Instructions ?Recorded meclizine 25 mg tablet 25 mg PO TID PRN dizziness 30 days 08/03/21 #90 tabs ferrous sulfate 325 mg (65 mg 325 mg PO BID #60 tabs 09/07/22 iron) tablet (Iron (ferrous sulfate)) citalopram 20 mg tablet 20 mg PO DAILY 90 days #90 tabs 04/21/23 levothyroxine 150 mcg tablet 150 mcg PO DAILY 90 days #90 tabs 04/21/23 metoprolol succinate 25 mg 25 mg PO DAILY 90 days #90 tabs 04/21/23 tablet,extended release 24 hr clotrimazole-betamethasone 1 1 appl topical BID fungal rash 7 06/23/23 %-0.05 % topical cream days #45 grams cholecalciferol (vitamin D3) 125 125 mcg PO DAILY #60 tabs 07/04/23 mcg (5,000 unit) tablet (Vitamin D3) amitriptyline 25 mg tablet 50 mg (2 x 25 mg) PO DAILY 90 days 07/18/23 #180 tabs sulfamethoxazole 800 1 tab PO BID #14 tabs 07/31/23 mg-trimethoprim 160 mg tablet (Bactrim DS) valacyclovir 500 mg tablet 500 mg PO BID #14 tabs 07/31/23 (Valtrex) Allergies Allergy/AdvReac Type Severity Reaction Status Date / Time No Known Allergies Allergy Verified 07/31/23 10:35 Review of Systems Review of Systems: Yes all other systems are reviewed and are negative Constitutional: Constitutional: Reports no additional constitutional complaints, Denies body ache(s), Denies chills, Denies fever(s), Denies headache(s) and Denies weakness Eyes: Eyes: Reports no additional eye complaints and Denies change in vision ENT: Reports system reviewed and no additional complaints, except as documented, Denies dizziness, Denies headache(s), Denies nasal congestion, Denies nasal discharge and Denies neck pain Cardiovascular: Cardiovascular: Reports no additional cardiovascular complaints, Denies chest pain, Denies leg edema and Denies dyspnea Respiratory: Respiratory: Reports no additional respiratory complaints, Denies cough and Denies dyspnea Gastrointestinal: Gastrointestinal: Reports no additional gastrointestinal complaints, Denies abdominal pain, Denies diarrhea, Denies nausea and Denies vomiting Genitourinary: Genitourinary: Reports no additional female genitourinary complaints and Denies urinary incontinence Musculoskeletal: Musculoskeletal: Reports no additional musculoskeletal complaints, Denies back pain, Denies arthralgias, Denies joint swelling, Denies neck pain, Denies numbness and Denies tingling Integumentary/Breasts: Skin/Breast: Reports system reviewed and no additional complaints, except as docu, Denies rash and Reports wounds Neurologic: Reports system reviewed and no additional complaints, except as documented, Denies Abnormal speech present, Denies dizziness, Denies headache(s), Denies numbness, Denies tingling and Denies weakness PMFSH Past Medical History Attestation statement: The following information was validated with the patient. Source: old records reviewed and nursing notes reviewed Medical History Cervical disc disease Dysplasia of cervix, low grade (LEIDY 1) Overweight (BMI 25.0-29.9) Vitamin D deficiency Nocturnal leg cramps Osteopenia Primary osteoarthritis of right knee Lumbar degenerative disc disease Iron deficiency anemia Migraine Acquired hypothyroidism Pure hypercholesterolemia Coronary artery disease Benign paroxysmal vertigo Benign tumor of thyroid gland Depression Hypertension Surgical History Hx of colonoscopy (~06/17/15) H/O thyroidectomy Hx of tonsillectomy History of placement of ear tubes History of lumpectomy of left breast Family History Family History Other Heart disease No family history of cancer Social History Social History Household Members: Family and Children Housing: Apartment Are you a primary field care advocate to a significant other at home: No Do you presently have visiting nurse or other home services: No Alcohol intake: former Comment: pt states feels less dizzy Patient Tobacco Use Status: Never used Tobacco e-Cigarette/Vaping Use: Never Used Second Hand Smoke Exposure: Yes Advance Directives: No Advance Directives Information Provided: No service: No Current occupational status: employed 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 She is . She has 3 children. Cognitive needs: No Hearing needs: No Vision needs: Yes Physical Exam Vital Signs: Vital Signs: Last Vital Signs Temp 97.7 F 07/31/23 10:33 Pulse 96 07/31/23 10:33 Resp 18 07/31/23 10:33 BP 130/91 H 07/31/23 10:33 Pulse Ox 97 07/31/23 10:33 O2 Del Method Room Air 07/31/23 10:33 BMI result Body Mass Index 26.7 Const: General: cooperative, healthy appearing, comfortable and no acute distress Orientation/consciousness: patient oriented x3 Limitations: no limitations HEENT: Head: Yes normal to inspection Ears: hearing grossly normal bilaterally General nose exam: Normal external nose present Face and sinus: Yes normal facial exam Mouth: Normal oral and palatal mucosa present Throat: Yes posterior oropharynx normal Eyes: General: appearance normal, both eyes and all related structures Pupils: Equal, round and reactive pupils present Neck: Neck: Yes normal visual inspection Chest: Chest palpation & inspection: normal inspection of the chest Resp: Effort & Inspection: normal respiratory effort Auscultation: clear to auscultation bilaterally Cardio: Rate: regular rate Rhythm: regular rhythm Peripheral pulses: Peripheral pulses 2+ throughout GI: Inspection: Yes normal to inspection Palpation (GI): Soft to palpation and nontender Auscultation: normal bowel sounds Back/Spine/Pelvis: Thoracic/Lumbar Spine: thoracic and lumbar spine normal to inspection Skin: General skin exam: no rashes or lesions noted Neuro: General: patient oriented x3, no focal motor deficits and normal sensation to monofilament Cranial nerves: Yes Equal, round and reactive pupils present Cognition (Neuro): normal cognition Speech: No Abnormal speech present Gait exam (Neuro): Normal gait present Motor exam (neuro): 5/5 motor strength present throughout Extrem: Other: Full active and passive range of motion of the digits. Normal sensation. No bony tenderness. General: Yes normal to inspection Medical Decision Making Medical Decision Making MDM Narrative: 58 Year old female with a history of hypertension, hyperlipidemia, vertigo, anemia, anxiety, depression presents the ER with complaints of itching/burning rash to both hands x5 days. patient reports she noticed the rash initially as blisters after getting her nails done at a nail salon. The skin then started peeling and has become more painful as it has peeled. She denies any fevers, chills, difficulty moving her fingers. No lesions in the mouth sore on the feet. No recent sexual activity or concern for STI. See pictures in physical exam Full active and passive range of motion of the digits. Normal sensation. No bony tenderness. there are some very small vesicular lesions noted but I am unable to express any drainage from knees to send down for a herpes panel. 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 She did have syphilis testing done in triage although she does not have any concern for syphilis and she does not want to pay for this test therefore we called down to the lab and canceled it. I did review worrisome signs and symptoms with the patient and when to return to the emergency room. Comfortable plan for discharge home. Differential Diagnosis Differential Diagnoses: The differential diagnosis associated with the presentation includes Low suspicion for SJS, ten, osteomyelitis Admission/Observation Consideration of admission/observation: Escalation of care including admission/observation considered Lab Data [facility] Lab Attestation statement: I reviewed the patient's lab results. Prescription Management I considered prescription management with: Pain Medication and Antibiotic Discharge Plan Discharge Clinical Impression: Herpetic lisa, Staph infection Patient Disposition: Home, Self-Care Instructions: Cellulitis (ED) Additional Instructions: Keep the wounds clean, covered and dry Take motrin or tylenol for pain Return for worsening symptoms Prescriptions: New valacyclovir [Valtrex] 500 mg tablet 500 mg PO BID Qty: 14 0RF sulfamethoxazole-trimethoprim [Bactrim DS] 800-160 mg tablet 1 tab PO BID Qty: 14 0RF No Action meclizine 25 mg tablet 25 mg PO TID PRN (Reason: dizziness) 30 Days Qty: 90 0RF metoprolol succinate 25 mg tablet extended release 24 hr 25 mg PO DAILY 90 Days Qty: 90 3RF levothyroxine 150 mcg tablet 150 mcg PO DAILY 90 Days Qty: 90 3RF citalopram 20 mg tablet 20 mg PO DAILY 90 Days Qty: 90 1RF amitriptyline 25 mg tablet 50 mg PO DAILY 90 Days Qty: 180 0RF Rx Instructions: Take at 7 pm everyday - Rx from neurology (Dr. Brewster) ferrous sulfate [Iron (ferrous sulfate)] 325 mg (65 mg iron) Tablet 325 mg PO BID Qty: 60 6RF cholecalciferol (vitamin D3) [Vitamin D3] 125 mcg (5,000 unit) Tablet 125 mcg PO DAILY Qty: 60 3RF clotrimazole-betamethasone 1-0.05 % cream 1 appl topical BID 7 Days Qty: 45 1RF Referrals: Gerry Dias MD [Primary Care Provider] - 1 week Print Language: Romanian
--- NOTE | 2023-07-31 11:42 | PC.NURSE ---
pt had labs drawn, told provider after they were drawn that she does not have concern and does not want the labs done, lab called to ask them to not run the lab
[2023-07-31] MEDS: Bacitracin Oint 0.9 GM PACKET 1 APPL TOPICAL (11:54)
--- NOTE | 2023-07-31 11:56 | PC.NURSE ---
bilateral hand wounds medication applied and dressed.
[2023-07-31 11:57] VITALS: BP 128/88; PULSE 92; RESP 18; TEMP 36.6; O2SAT 98
== END 2023-07-31 11:57 | disposition home or self-care (01) ==
PROVIDERS: Emergency Provider Emergency Medicine; PCP Internal Medicine
DX: B00.89 Other herpesviral infection (principal); L00 Staphylococcal scalded skin syndrome; L29.8 Other pruritus; R23.8 Other skin changes; I10 Essential (primary) hypertension; E78.5 Hyperlipidemia, unspecified; R42 Dizziness and giddiness; F41.8 Other specified anxiety disorders; Z79.899 Other long term (current) drug therapy
CPT/HCPCS: 99282; 99283

== ENCOUNTER 2023-08-03 13:03 | Outpatient (REF) | payer OTHER, SELFPAY ==
--- NOTE | ~2023-08-03 | MM_ITS ---
EXAMINATION: MM SCREENING DIGITAL BREAST TOMOSYNTHESIS, BILATERAL CLINICAL INFORMATION: Screening. Asymptomatic. The patient has a history of prior left breast cancer surgery in 2013 for DCIS. COMPARISON: Mammography: This study is compared with prior exams dating back to TECHNIQUE: Digital breast tomosynthesis is performed in both the craniocaudal and mediolateral oblique views along with computer-aided detection (CAD). Synthesized 2D images are generated from the tomosynthesis. FINDINGS: There are scattered areas of fibroglandular density (ACR BI-RADS breast composition Category b). There are no significant masses, abnormal calcifications, or other abnormalities. There are postsurgical changes in the upper outer quadrant of the left breast from prior cancer treatment. MM/MM tomosynthesis screening BI IMPRESSION: No mammographic evidence of malignancy. ASSESSMENT: BI-RADS BI-RADS 2 - Benign Findings RECOMMENDATION: Routine annual mammography screening. 1 year F/U This examination should not preclude the clinical evaluation of a suspicious palpable abnormality. This patient's information was entered into a reminder system with a target due date for their next mammogram.
== END 2023-08-03 13:04 | disposition home or self-care (01) ==
LOC: HO.MAMMO 13:03
PROVIDERS: PCP Internal Medicine; Visit Provider Internal Medicine
DX: Z12.31 Encounter for screening mammogram for malignant neoplasm of breast (principal)
CPT/HCPCS: 77063; 77067

== ENCOUNTER → 2023-08-03 13:15 | Outpatient (BNV) | payer OTHER, SELFPAY | PROVIDERS: PCP Internal Medicine; Visit Provider Radiology Diagnostic Radiology | DX: Z12.31 Encounter for screening mammogram for malignant neoplasm of breast (principal) | CPT/HCPCS: 77063; 77067 ==

== ENCOUNTER 2023-08-16 11:35 | Outpatient (AMB) | payer OTHER, SELFPAY ==
--- NOTE | 2023-08-16 13:01 | MHC.OFFVIS ---
Vital Signs 08/16/23 13:24 Height 5 ft 10 in Weight 184 lb BMI 26.4 BP 108/74 Intake Visit Reasons: EMB Metal Grader Required: No Information Interpreted: non-clinical & clinical Bilingual Speech Language Pathologist: Bilingual Speech Language Pathologist Present (Davidyn) Allergies No Known Allergies Allergy (Verified 08/16/23 13:25) Is last menstrual period known: No Post menopausal: Yes Patient : No HPI Comments Details: Patient is here for ultrasound follow up and in EMB procedure. Ultrasound revealed fibroids and an endometrial stripe of 0.6 cm, history of postmenopausal bleeding last year. [facility] Medical History Cervical disc disease Dysplasia of cervix, low grade (LEIDY 1) Overweight (BMI 25.0-29.9) Vitamin D deficiency Nocturnal leg cramps Osteopenia Primary osteoarthritis of right knee Lumbar degenerative disc disease Iron deficiency anemia Migraine Acquired hypothyroidism Pure hypercholesterolemia Coronary artery disease Benign paroxysmal vertigo Benign tumor of thyroid gland Depression Hypertension Surgical History Hx of colonoscopy (~06/17/15) H/O thyroidectomy Hx of tonsillectomy History of placement of ear tubes History of lumpectomy of left breast Family History Other Heart disease No family history of cancer Social History Household Members: Family and Children Housing: Apartment Are you a primary home care nurse to a significant other at home: No Do you presently have visiting nurse or other home services: No Alcohol intake: former Comment: pt states feels less dizzy Patient Tobacco Use Status: Never used Tobacco e-Cigarette/Vaping Use: Never Used Second Hand Smoke Exposure: Yes service: No Current occupational status: employed 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 She is . She has 3 children. Cognitive needs: No Hearing needs: No Vision needs: Yes Female Reproductive History Menstrual control method: none Date of last pap smear: 06/28/23 (negative) Review of Systems Const All systems reviewed & are unremarkable except as noted in HPI and below Physical Exam Vital Signs: Last Vital Signs BP 108/74 08/16/23 13:24 BMI result Body Mass Index 26.4 Const General: cooperative, healthy appearing and no acute distress Orientation/consciousness: patient oriented x3 GI Inspection: Yes normal to inspection Palpation (GI): Soft to palpation and Other GI palpation findings present (Nontender) Rectal Exam - Female: visual inspection normal General: Yes bladder normal to palpation External Female Exam: normal appearance of the urethra Speculum Exam - Vagina: normal appearance of the vagina, normal palpation, normal vaginal discharge and vagina atrophic (Moderate) Speculum Exam - Cervix: normal appearance of the cervix and normal palpation Bimanual exam- vagina & uterus: normal bimanual exam, normal palpation, uterine size normal, bladder normal to palpation, normal palpation, uterine shape normal and non-tender Bimanual Exam- Adnexa, other: normal adnexae Neuro General: patient oriented x3 Office Procedures Endometrial Biopsy Details: The patient is here today for an endometrial biopsy due to AUB to rule out any pathology including atypical, hyperplasia or cancer cells of the uterus. She was counseled regarding anticipatory guidance for the procedure including the risks for pain, infection, bleeding, perforation, potential injury to the tissues may include the cervix, uterus, tubes, bladder and bowels. These injuries may include further treatment and evaluation including surgery, blood transfusions, antibiotics, hospitalizations and anesthesia. Permanent injury and scarring can occur. She was consented for the procedure, and the consent forms were signed. She is agreeable to have the procedure today. All questions were answered. Endometrial Biopsy Procedure: The patient was placed in the dorsal lithotomy position and a sterile speculum inserted. Using aseptic technique for the procedure. The cervix was cleansed with Betadine x 3 swabs. A single toothed tenaculum was placed on the cervix for stabilization and the uterus was sounded to 7 cm with a 4mm pipelle for 4 passes. Minimal bleeding was observed. The tissue sample was placed in formalin in a patient labeled container by staff assisting and sent to the pathology department for processing and interpretation. The patient tolerate the procedure well and was in good condition when leaving the department. Endometrial Biopsy Post Procedure Care: Nothing in the vagina including: tampons, douching or intimacy until all the bleeding has subsided. There may be some post procedure bleeding for several days, this bleeding is usually light and may turn to a light brown or pink color. Mild cramps may occurs. Nothing in the vaginal including: tampons, douching, or intimacy until all the bleeding has subsided. You may take an over the counter mild analgesic such as Tylenol or Advil (if no allergies) per the manufactures recommendation on dosing, frequency, and follow the directions completely. Call the office if any: fever (over 100.4), flu like symptoms, abdominal pain (worse than cramping), foul smelling, infected appearing vaginal discharge, or heavy bleeding. If indicated: Use condoms to prevent and STI's, and only after the bleeding has stopped completely. Return to the office in 2 weeks for results and plan of care. This note is constructed using voice recognition software. While every effort has been made to ensure accuracy, breast trimmer errors may have been included. [id number] Biopsy Results Reviewed Results Reviewed: [address] [address] Ultrasound Report Signed Patient: Ivonne Barrett MR#: [id number] : 1965 Acct:[id number] Age/Sex: 58 / F ADM Date: 06/30/23 Loc: HO.US Attending Dr: Tali Cavanaugh CNM Ordering Physician: Tali Cavanaugh CNM Date of Service: 06/30/23 Procedure(s): US pelvic and transvaginal Accession Number(s): [id number] cc: Gerry Dias MD; Tali Cavanaugh CNM~ EXAMINATION: US PELVIS COMPLETE CLINICAL INFORMATION: Postmenopausal bleeding. COMPARISON: Pelvic ultrasound dated 03/23/2016. TECHNIQUE: Transabdominal and transvaginal imaging were performed. FINDINGS: The uterus is of normal size and echogenicity, measuring 8.8 x 5.2 x 6.5 cm. The uterus is anteverted and anteflexed. A regular homogeneous endometrium is identified measuring 0.6 cm. FIBROIDS: There are 2 fibroids seen. 1. Location: Posterior upper body, myometrial. Size: 1.7 x 1.4 x 1.5 cm. Prior: 2.4 x 1.5 x 2.3 Fibroid characteristics: Heterogeneous echotexture. 2. Location: Anterior upper body, subendometrial. Size: 3.6 x 3.4 x 3.3 cm. Prior: 5.4 x 4.3 x 4.6 cm. Fibroid characteristics: Heterogeneous echotexture. Both ovaries are of normal size and echogenicity. [The ovaries show normal doppler flow.] The right ovary measures 2.1 x 1.6 x 1.8 cm, for a volume of 3.2 mL. The left ovary measures 1.7 x 1.4 x 1.6 cm, for a volume of 2.0 mL. There is no pelvic free fluid. No adnexal mass is seen. US/US pelvic and transvaginal IMPRESSION: There are uterine fibroids, as detailed. The examination is otherwise unremarkable. Dictated By: Castillo Rivera MD Signed By: <Electronically signed by Castillo Rivera MD in OV> 07/07/23 1630 DD/ 1516 TD/TT: It Infrastructure Architect: MARCO Assessment & Plan Assessment & Plan (1) Fibroid: Code(s): D21.9 - Benign neoplasm of connective and other soft tissue, unspecified Category: Medical (2) Thickened endometrium: Code(s): R93.89 - Abnormal findings on diagnostic imaging of other specified body structures (3) Postmenopausal bleeding: Comment: See procedure notes. Code(s): N95.0 - Postmenopausal bleeding Category: Medical Plan Discussed ultrasound findings: Counseled re: Leiomyoma: common pelvic neoplasm. Differential diagnosis-may include leiomyosarcoma which is a rare uterine sarcoma 3-7/100,000, difficult to distinguish from fibroids on ultrasound from uterine sarcoma's. Unlikely any single test will have a highly positive predictive value. Hysterectomy is not recommended for sole purpose of excluding malignant neoplasm. Report any PMB/AUB. Pelvic pressure, bloating, or pain. Consult for surgical exploration verses expectant management offered. Patient prefers not to have a surgical consult at this time agrees to repeat ultrasound in 6 months. Order placed today for December, plan to see her back to discuss results in 6 months. Expectant management follow up in 6 months, then yearly for stability. Referral to MD if indicated for level of care. Orders: Orders Surgical Today N95.0 - Postmenopausal bleeding, R93.89 - Abnormal findings on diagnostic imaging of other specified body structures US pelvic and transvaginal 12/26/23 D21.9 - Benign neoplasm of connective and other soft tissue, unspecified Coding Level of Care Code Procedure Only Diagnoses Fibroid D21.9 Thickened endometrium R93.89 Postmenopausal bleeding N95.0 CPT Codes Endometrial Biopsy - CPT: 81028-[id number] Biopsy ([id number])
[2023-08-16 13:24] VITALS: BP 108/74; BMI 26.4
== END 2023-08-16 14:06 | disposition home or self-care (01) ==
LOC: HO.HWS 11:35
PROVIDERS: PCP Internal Medicine; Visit Provider Advanced Practice Midwife
DX: N95.0 Postmenopausal bleeding (principal); R93.89 Abnormal findings on diagnostic imaging of other specified body structures; D25.9 Leiomyoma of uterus, unspecified
CPT/HCPCS: 58100

== ENCOUNTER 2023-08-16 11:35 | Outpatient (REF) | payer OTHER, SELFPAY | END 2023-08-16 11:36 | disposition home or self-care (01) | LOC: HO.LNP 11:35 | PROVIDERS: PCP Internal Medicine; Visit Provider Advanced Practice Midwife | DX: N95.0 Postmenopausal bleeding (principal); D21.9 Benign neoplasm of connective and other soft tissue, unspecified; R93.89 Abnormal findings on diagnostic imaging of other specified body structures | CPT/HCPCS: 58100; 88305 ==

== ENCOUNTER 2023-10-21 11:37 | Outpatient (AMB) | payer OTHER, SELFPAY ==
--- NOTE | 2023-10-21 12:01 | A.OFFVIS_ITS ---
Intake Visit Reasons: emb follow up Inventory Associate And Driver: Inventory Associate And Driver Present Allergies No Known Allergies Allergy (Verified 10/21/23 12:01) Is last menstrual period known: Yes HPI Comments Details: Patient is here today for her endometrial biopsy results. History of postmenopausal bleeding last year. Ultrasound revealed endometrial thickness of 0.6 cm. She has not had any repeat episodes of vaginal bleeding. History of fibroids, admits to an occasional brief, lower pelvic jabbing pain. PFS Medical History Cervical disc disease Dysplasia of cervix, low grade (LEIDY 1) Overweight (BMI 25.0-29.9) Vitamin D deficiency Nocturnal leg cramps Osteopenia Primary osteoarthritis of right knee Lumbar degenerative disc disease Iron deficiency anemia Migraine Acquired hypothyroidism Pure hypercholesterolemia Coronary artery disease Benign paroxysmal vertigo Benign tumor of thyroid gland Depression Hypertension Surgical History Hx of colonoscopy (~06/17/15) H/O thyroidectomy Hx of tonsillectomy History of placement of ear tubes History of lumpectomy of left breast Family History Other Heart disease No family history of cancer Social History Household Members: Family and Children Housing: Apartment Are you a primary care analyst to a significant other at home: No Do you presently have visiting nurse or other home services: No Alcohol intake: former Comment: pt states feels less dizzy Patient Tobacco Use Status: Never used Tobacco e-Cigarette/Vaping Use: Never Used Second Hand Smoke Exposure: Yes service: No Current occupational status: employed 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 She is . She has 3 children. Cognitive needs: No Hearing needs: No Vision needs: Yes Review of Systems Const All systems reviewed & are unremarkable except as noted in HPI and below Endo Reports no additional complaints Physical Exam Const General: cooperative, healthy appearing and no acute distress Psych Appearance: well kempt Attitude: cooperative Thought process: Normal thought process present Results Reviewed Results Reviewed: Surgical Pathology [id number] Name: Ivonne Barrett Age/Sex: 58/F Attending: Tali Cavanaugh CNM : 1965 Submitted by: Tali Cavanaugh CNM Copies to: Gerry Dias MD MR #: [id number] Status: DEP REF Collected: 08/16/23 Location: [facility] Received: 08/16/23 Diagnosis Endometrium, biopsy: Strips of benign atrophic endometrium and endocervical glandular epithelium; no atypia or carcinoma (see comment). Comment: The findings do not explain a thickened endometrium. Clinical History PMB, thickened endometrium Microscopic Description Microscopic sections reviewed. Material Received EMB Gross Description Received in formalin labeled ?EMB? is a 1.0 x 0.8 x 0.3 cm aggregate of mucus, blood and fragments of congested and hemorrhagic red-maroon tissue, submitted in toto in a cassette labeled A. CEDS Assessment & Plan Assessment & Plan (1) Encounter to discuss test results: Code(s): Z71.2 - Person consulting for explanation of examination or test findings Plan Discussed: Endometrial biopsy results were negative for atypia or carcinoma. Reviewed ultrasound findings, fibroids reduced in size. Advised to call if there is any episodes of bleeding, pelvic pain, bloating, pelvic pressure for sooner evaluation. All of her questions and concerns were addressed to the best of my ability and shared decision making. She is agreeable to the plan of care. Annual exam is scheduled for 06/2024. Plan follow up on fibroids at that time unless there is any other changes. This note is constructed using voice recognition software. While every effort has been made to ensure accuracy, lead data entry operator errors may have been included. Coding Level of Care Code Est Pt Level 3 (70540) Diagnoses Encounter to discuss test results Z71.2
== END 2023-10-21 13:51 | disposition home or self-care (01) ==
LOC: HO.HWS 11:37
PROVIDERS: PCP Internal Medicine; Visit Provider Advanced Practice Midwife
DX: Z71.2 Person consulting for explanation of examination or test findings (principal)
CPT/HCPCS: 99213

== ENCOUNTER → 2023-10-21 11:37 | Outpatient (BNVA) | payer OTHER, SELFPAY | PROVIDERS: PCP Internal Medicine; Visit Provider Advanced Practice Midwife | DX: D21.9 Benign neoplasm of connective and other soft tissue, unspecified (principal); Z71.2 Person consulting for explanation of examination or test findings | CPT/HCPCS: 99212 ==

== ENCOUNTER 2023-12-27 10:27 | Outpatient (REF) | payer OTHER, SELFPAY ==
--- NOTE | ~2023-12-27 | US_ITS ---
EXAMINATION: US PELVIS CLINICAL INFORMATION: Uterine fibroids. COMPARISON: Pelvic ultrasound 06/30/2023. TECHNIQUE: Ultrasound of the pelvis is performed using both transabdominal and transvaginal transducers along with Doppler. Transvaginal imaging is performed due to inadequate visualization transabdominally. FINDINGS: Uterus: The uterus is anteverted and measures 8.5 x 5.1 x 6.0 cm. The double wall endometrial thickness could not be seen secondary to uterine fibroids. A large central fibroid is seen at the fundus measuring 3.5 x 3.4 x 3.7 cm (previously 3.6 x 3.4 x 3.3 cm). A small left fibroid present near the fundus has decreased in size measuring 0.5 x 0.6 x 0.5 cm (previously 1.7 x 1.4 x 1.5 cm). A new fibroid seen near the fundus anteriorly measures 1.9 x 1.5 x 1.7 cm. Adnexa: Both ovaries are visualized. There is normal color flow to the adnexa. There is no ovarian torsion. Small amount of free fluid seen in the left adnexa with a septation seen. Right ovary measures 1.9 x 1.0 x 1.8 cm for a volume of 1.8 mL and appears normal. Left ovary measures 1.6 x 1.1 x 1.3 cm for a volume of 1.2 mL and contains some calcifications. US/US pelvic and transvaginal IMPRESSION: Uterine fibroids as described above. Electronically signed by: Jermain Huang MD 02/21/2024 08:39 PM [facility]
== END 2023-12-27 10:28 | disposition home or self-care (01) ==
LOC: HO.US 10:27
PROVIDERS: PCP Internal Medicine; Visit Provider Advanced Practice Midwife
DX: D21.9 Benign neoplasm of connective and other soft tissue, unspecified (principal)
CPT/HCPCS: 76830; 76856

== ENCOUNTER 2023-12-28 13:09 | Outpatient (AMB) | payer OTHER, SELFPAY ==
[2023-12-28 13:25] VITALS: BP 140/86; PULSE 91; O2SAT 96; BMI 26.5
--- NOTE | 2023-12-28 13:25 | MHC.PC.OV ---
Vital Signs 12/28/23 13:25 Height 5 ft 10 in Weight 184 lb 6 oz BMI 26.5 BP 140/86 H Blood Pressure Location Lt brachial Position Sitting Pulse 91 Pulse Source Pulse Oximeter Pulse Oximetry (%) 96 Oxygen Delivery Method Room Air Intake Visit Reasons: Annual Exam [employer] Required: No Accompanied by: Self / Same As Patient Allergies No Known Allergies Allergy (Verified 12/28/23 14:13) Medication List - Last Reconciled 12/28/23 by Gerry Dias MD amitriptyline 50 mg (2 x 25 mg) PO DAILY 90 days cholecalciferol (vitamin D3) (Vitamin D3) 125 mcg PO DAILY citalopram 20 mg PO DAILY 90 days clotrimazole-betamethasone 1-0.05 % 1 appl topical BID 7 days ferrous sulfate (Iron (ferrous sulfate)) 325 mg PO BID levothyroxine 150 mcg PO DAILY 90 days meclizine 25 mg PO TID PRN 30 days metoprolol succinate ER 25 mg PO DAILY 90 days valacyclovir (Valtrex) 500 mg PO BID Tobacco use date assessed: 12/28/23 Dental Screening Dental Screen Date: 12/28/23 Did you have a dental visit in the last 12 months?: No Did you have a dental problem in the last 6 months where you did not have access to dental care?: No Was dental information given to patient?: No HPI Annual Exam HPI Details Patient comes in today for her annual physical examination States that she lost her job again a couple of months ago and she has been feeling stressed out and depressed as a result Adds that she also forgot to take her Metoprolol ER this morning and that she currently has a headache; her blood pressure right now is also high She denies any dizziness Denies any chest pains, no increased SOB No nausea/vomiting, no abdominal pain No change in bowel habits noted She denies any acute urinary symptoms Needs a couple of her Rx refilled She has not been able to get her previously ordered labs done yet She is up-to-date with all of her cancer screenings - had her mammogram and bone density done in July 2023 and her annual gynecology exam and pap smear in June 2023 She will be due for her repeat colonoscopy in [address] Veras [facility] Medical History Cervical disc disease Dysplasia of cervix, low grade (LEIDY 1) Overweight (BMI 25.0-29.9) Vitamin D deficiency Nocturnal leg cramps Osteopenia Primary osteoarthritis of right knee Lumbar degenerative disc disease Iron deficiency anemia Migraine Acquired hypothyroidism Pure hypercholesterolemia Coronary artery disease Benign paroxysmal vertigo Benign tumor of thyroid gland Depression Hypertension Surgical History Hx of colonoscopy (~06/17/15) H/O thyroidectomy Hx of tonsillectomy History of placement of ear tubes History of lumpectomy of left breast Family History Other Heart disease No family history of cancer Social History Household Members: Family and Children Housing: Apartment Are you a primary daycare teacher to a significant other at home: No Do you presently have visiting nurse or other home services: No Alcohol intake: former Comment: pt states feels less dizzy Patient Tobacco Use Status: Never used Tobacco e-Cigarette/Vaping Use: Never Used Second Hand Smoke Exposure: Yes service: No Current occupational status: employed 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 She is . She has 3 children. Cognitive needs: No Hearing needs: No Vision needs: Yes Questionnaire PHQ-9 Over the last 2 weeks, how often have you been bothered by any of the following problems? 1. Little interest or pleasure in doing things: not at all 2. Feeling down, depressed, or hopeless: several days 3. Trouble falling or staying asleep, or sleeping too much: not at all 4. Feeling tired or having little energy: several days 5. Poor appetite or overeating: not at all 6. Feeling bad about yourself - or that you are a failure or have let yourself or your family down: not at all 7. Trouble concentrating on things, such as reading the newspaper or watching television: not at all 8. Moving or speaking so slowly that other people could have noticed. Or the opposite - being so fidgety or restless that you have been moving around a lot more than usual: not at all 9. Thoughts that you would be better off or of hurting yourself in some way: not at all Total score: 2 Depression Screening Interpretation: Negative Depression Screening Done: Yes 35258 - PHQ-9 Billing: Yes Source: Developed by Drs. Manny Gardiner, Rashida Wynn, Livan Vigil and colleagues, with an educational slade from [employer]. Thrive Questionnaire Date Thrive assessed: 12/28/23 I am a: Patient What is your living situation today?: I have a steady place to live Within the past 12 months, did the food you bought not last and you didn't have the money to get more?: Never true Within the past 12 months, did you worry whether your food would run out before you got money to buy more?: Never true Do you have trouble paying for medicines?: Yes Do you have trouble getting transportation to medical appointments?: No Do you have trouble paying your heating and electricity bill?: Yes Do you have trouble taking care of your child, family member or friend?: No Do you have trouble with day-to-day activities such as bathing, preparing meals, shopping, managing finances, etc.?: No Are you currently unemployed and looking for a job?: Yes Are you interested in more education?: No Please select the resources that you would like help with: Paying for medicine and Utilities Currently or been in a relationship where the following occur: No concerns reported THRIVE Score: 1 AUDIT C Alcohol Use Questionnaire (AUDIT-C) 1. How often do you have a drink containing alcohol?: Never 3. How often do you have six or more drinks on one occasion?: Never Total Score: 0 Score Reviewed/Action Taken: Yes ALISA-7 AMB Questionnaire ALISA-7 Date ALISA - 7 assessed: 12/28/23 Feeling nervous, anxious, or on edge: 0 = Not at all Not being able to stop or control worryin = Not at all Worrying too much about different things: 1 = Several days Trouble relaxin = More than half the days Being so restless that it is hard to sit still: 0 = Not at all Becoming easily annoyed or irritable: 0 = Not at all Feeling afraid as if something awful might happen: 1 = Several days Total ALISA-7 score (0-4 normal; 5-9 mild; 10-14 moderate; 15-21 severe): 4 Source: Developed by Drs. Manny Gardiner, Rashida Wynn, Livan Vigil and colleagues, with an educational slade from [employer]. Review of Systems Const Denies chills, Denies fatigue, Denies fever(s), Reports headache(s) (as per HPI) and Denies malaise Eyes Denies blurry vision, Denies change in vision, Denies irritation and Denies itchy eyes ENT Denies dysphagia, Denies dizziness, Denies otalgia, Reports headache(s) (as per HPI), Denies nasal congestion, Denies neck pain, Denies odynophagia, Denies sinus pain and Denies sore throat Card Denies chest pain, Denies rapid heart rate, Denies irregular heart rhythm, Denies palpitations and Denies dyspnea Resp Denies chest congestion, Denies cough, Denies dyspnea and Denies wheezing GI Denies abdominal pain, Denies bloating, Denies constipation, Denies dysphagia, Denies heartburn, Denies diarrhea, Denies nausea, Denies odynophagia and Denies vomiting Denies hematuria, Denies urinary frequency, Denies dysuria, Denies urinary incontinence and Denies urinary urgency Musc Denies back pain, Denies arthralgias, Denies joint swelling, Denies muscle weakness and Denies neck pain Skin/Breast Denies breast pain, Denies breast mass, Denies change in pigmentation, Denies lesions, Denies rash and Denies unusual bruising Neuro Denies dizziness, Reports headache(s) (as per HPI) and Denies paresthesias Psych Denies anxiety and Reports depression (as per HPI) Endo Denies fatigue and Denies palpitations Genaro/Lymph Denies easy bruising Aller/Immun Denies itchy eyes and Denies wheezing Physical exam (Primary Care) Vital Signs: Last Vital Signs Pulse 91 12/28/23 13:25 BP 140/86 H 12/28/23 13:25 Pulse Ox 96 12/28/23 13:25 Oxygen Delivery Method Room Air 12/28/23 13:25 BMI result Body Mass Index 26.5 Tobacco/Smoking Status: Tobacco use Status Tobacco use date assessed 12/28/23 12/28/23 13:26 Patient Tobacco Use Status Never used Tobacco 12/28/23 13:26 e-Cigarette/Vaping Use Never Used 12/28/23 13:26 PHQ-9: PHQ-9 Score PHQ-9: Total score 2 12/28/23 19:41 Depression Screening Interpretation: Negative Thrive Assessment: Date of Thrive Assessment Date Thrive assessed 12/28/23 12/28/23 13:26 Currently or been in a relationship where the following occur: No concerns reported Const General: no acute distress, alert and awake Orientation/consciousness: patient oriented x3 HENMT Head: Yes normocephalic and Yes atraumatic Ears: external ears normal, TM's normal bilaterally and EAC's normal General nose exam: No nasal discharge present Face and sinus: Yes normal facial exam and Yes sinuses nontender Teeth and gingiva: dentition normal Throat: Yes posterior oropharynx normal and Yes tonsils normal (no TP congestion) Eyes Eyelids: Yes eyelids normal Conjunctivae: conjunctivae normal Pupils: Equal, round and reactive pupils present EOM: EOMs intact bilaterally Neck Neck: Yes no lymphadenopathy and Yes supple Thyroid: Thyroid normal Resp Auscultation: clear to auscultation bilaterally, no rales and no wheezes Cardio Rate: regular rate Rhythm: regular rhythm Heart sounds: no murmurs GI Palpation (GI): Soft to palpation, nontender and No hepatosplenomegaly present Auscultation: normal bowel sounds General: Yes no CVA tenderness Back/Spine/Pelvis Back: no CVA tenderness Cervical Spine: Cervical spine tenderness (mild) Thoracic/Lumbar Spine: lumbar spinal tenderness (mild) Skin Lesions: no lesions Rashes: no rashes Neuro General: patient oriented x3, moves all extremities, no focal motor deficits and CN's II-XI intact bilaterally Cranial nerves: Yes Equal, round and reactive pupils present Cognition (Neuro): normal cognition Gait exam (Neuro): Normal gait present Extrem General: Yes no clubbing, cyanosis or edema Right lower extremity: knee Details: tenderness (mild); no swelling Office Procedures Flu Questionnaire Does the patient have a severe egg allergy?: No Immunizations Fluarix Triv [id number] (PF) 45 mcg (15 mcg x 3)/0.5 mL IM syringe Performing Provider: Gerry Dias MD [place] [facility] [place] [facility] Documented (not given) by: VILMA Velazco on 12/28/23 13:34 Reason Not Given: Patient Refused Coding Level of Care Code Est Pt Prev Care 40-64y(05243) Diagnoses Annual physical exam Z00.00 Coronary artery disease involving [place] coronary artery of [place] heart without angina pectoris I25.10 Coronary Disease-Associated Artery/Lesion type: [place] artery [place] vs. transplanted heart: [place] heart Associated angina: without angina Pure hypercholesterolemia E78.00 Acquired hypothyroidism E03.9 Elevated blood pressure reading in office without diagnosis of hypertension R03.0 Migraine without status migrainosus, not intractable, unspecified migraine type G43.909 Migraine type: unspecified Status migrainosus presence: without status migrainosus Intractability: not intractable Iron deficiency anemia, unspecified iron deficiency anemia type D50.9 Iron deficiency anemia type: unspecified iron deficiency Degeneration of intervertebral disc of lumbar region with discogenic back pain M51.360 Disc-related pain type: discogenic back pain only Cervical disc disease M50.90 Primary osteoarthritis of right knee M17.11 Osteopenia, unspecified location M85.80 Osteopenia location: unspecified Vitamin D deficiency E55.9 Ductal carcinoma in situ (DCIS) of left breast D05.12 Nocturnal leg cramps G47.62 Benign paroxysmal vertigo, unspecified laterality H81.10 Laterality: unspecified laterality Episode of recurrent major depressive disorder, unspecified depression episode severity F33.9 Depression Type: major depressive disorder Major depression recurrence: recurrent Active/Remission status: currently active Major depression episode severity: unspecified Overweight (BMI 25.0-29.9) E66.3 Assessment & Plan Assessment & Plan (1) Annual physical exam: Code(s): Z00.00 - Encounter for general adult medical examination without abnormal findings Category: Medical Plan: Check labs - will just have patient use her previous lab orders (updated) for her lab draw She is up-to-date with all of her cancer screenings - had her mammogram and bone density done in July 2023 and her annual gynecology exam and pap smear in June 2023 She will be due for her repeat colonoscopy in [address] Veras (2) Coronary artery disease: Comment: Stress EKG done on 12/05/2018 was negative for ischemia; myocardial perfusion studies done on 11/21/2018 revealed (+) equivocal apical ischemia but no transient ischemic dilatation is seen; gated LVEF was at 69% Code(s): I25.10 - Atherosclerotic heart disease of [place] coronary artery without angina pectoris Category: Medical Qualifiers: Coronary Disease-Associated Artery/Lesion type: [place] artery [place] vs. transplanted heart: [place] heart Associated angina: without angina Qualified Code(s): I25.10 - Atherosclerotic heart disease of [place] coronary artery without angina pectoris Plan: Patient has been asymptomatic from cardiac standpoint Continue Metoprolol ER 25 mg QD and Aspirin 81 mg QD Follow up with cardiology as scheduled (3) Pure hypercholesterolemia: Code(s): E78.00 - Pure hypercholesterolemia, unspecified Category: Medical Plan: Reinforced low cholesterol diet She again has not had her fasting lipids rechecked in a while - her cholesterol levels were still elevated back in February 2022, with total cholesterol at 273 mg/dl and LDL cholesterol at 196 mg/dl Will have her recheck her fasting lipids GRIFFIN for follow up (4) Acquired hypothyroidism: Code(s): E03.9 - Hypothyroidism, unspecified Category: Medical Plan: Continue Levothyroxine 150 mcg QD Will recheck her TFTs GRIFFIN for follow up (5) Elevated blood pressure reading in office without diagnosis of hypertension: Code(s): R03.0 - Elevated blood-pressure reading, without diagnosis of hypertension Category: Medical Plan: Her BP is high in the office today at 140/86 mm States that she currently has a headache (likely migraine) and she forgot to take her Metoprolol ER this morning Will have patient just continue monitoring her BP for now - goal is systolic BP of 120 mm or less (6) Migraine: Code(s): G43.909 - Migraine, unspecified, not intractable, without status migrainosus Category: Medical Qualifiers: Migraine type: unspecified Status migrainosus presence: without status migrainosus Intractability: not intractable Qualified Code(s): G43.909 - Migraine, unspecified, not intractable, without status migrainosus Plan: Brain MRI done in May 2020 came out normal except for scattered chronic small vessel ischemic changes within the periventricular white matter EEG, NCV and EMG done were all reportedly normal Continue Amitriptyline 50 mg Q PM States that her headaches have been mostly under control except for today She was seeing neurology for follow up but has not been seen by Dr. Brewster in a while now and is advised to call the neurology office to schedule a follow up appt with Dr. Narcisa MOYA (7) Iron deficiency anemia: Code(s): D50.9 - Iron deficiency anemia, unspecified Category: Medical Qualifiers: Iron deficiency anemia type: unspecified iron deficiency Qualified Code(s): D50.9 - Iron deficiency anemia, unspecified Plan: Continue Ferrous Sulfate 325 mg BID Will recheck her CBC for follow up Follow up with hematology (Dr. Man) as scheduled (8) Lumbar degenerative disc disease: Code(s): M51.36 - Other intervertebral disc degeneration, lumbar region Category: Medical Qualifiers: Disc-related pain type: discogenic back pain only Qualified Code(s): M51.360 - Other intervertebral disc degeneration, lumbar region with discogenic back pain only Plan: Reinforced activity and weight-lifting restrictions (+) mild lumbar spondylosis was seen on her lumbar spine MRI previously done in March 2016 (9) Cervical disc disease: Code(s): M50.90 - Cervical disc disorder, unspecified, unspecified cervical region Category: Medical Plan: CT of the cervical spine done in May 2020 revealed (+) significant multilevel spondylosis and facet arthritis of the cervical spine (10) Primary osteoarthritis of right knee: Code(s): M17.11 - Unilateral primary osteoarthritis, right knee Category: Medical Plan: Right knee x-rays done in January 2017 and January 2018 revealed (+) mild OA changes but patient feels that her knee pain has gotten a lot worse over the past couple of years Follow up with orthopedics as scheduled (11) Osteopenia: Code(s): M85.80 - Other specified disorders of bone density and structure, unspecified site Category: Medical Qualifiers: Osteopenia location: unspecified Qualified Code(s): M85.80 - Other specified disorders of bone density and structure, unspecified site Plan: BMD last done on 07/19/2023 revealed (+) Osteopenia based on the lowest T-score value of -1.5 in the total femur Her 10-YEAR FRAX score: Major osteoporotic fracture (clinical spine, forearm, hip or shoulder) 7.3%. Hip fracture 0.5% Her T score in the AP spine has declined by almost 10% from her previous BMD in December 2019 and is unchanged in her left femur She again is encouraged to continue regular exercise and physical activity as tolerated to help manage/maintain her BMD Will continue to monitor her BMD every 2 to 3 years (12) Vitamin D deficiency: Code(s): E55.9 - Vitamin D deficiency, unspecified Category: Medical Plan: Continue Vitamin D3 5000 units QD Will recheck her Vitamin D level for follow up (13) Ductal carcinoma in situ (DCIS) of left breast: Comment: Completed 5 years of oral Tamoxifen Code(s): D05.12 - Intraductal carcinoma in situ of left breast Category: Medical Plan: Follow up with oncology as scheduled for continuing surveillance Repeat mammogram last done on 08/03/2023 came out negative (14) Nocturnal leg cramps: Code(s): G47.62 - Sleep related leg cramps Category: Medical Plan: Continue Tizanidine 4 mg Q HS PRN (15) Benign paroxysmal vertigo: Code(s): H81.10 - Benign paroxysmal vertigo, unspecified ear Category: Medical Qualifiers: Laterality: unspecified laterality Qualified Code(s): H81.10 - Benign paroxysmal vertigo, unspecified ear Plan: Continue Meclizine 25 mg PRN To consider referral again to physical therapy for canalith positioning if her symptoms persist or get worse (16) Depression: Code(s): F32.9 - Major depressive disorder, single episode, unspecified Category: Medical Qualifiers: Depression Type: major depressive disorder Major depression recurrence: recurrent Active/Remission status: currently active Major depression episode severity: unspecified Qualified Code(s): F33.9 - Major depressive disorder, recurrent, unspecified Plan: Continue Citalopram 20 mg QD She has been feeling more depressed lately since she lost her job; is currently still looking for a new job (17) Overweight (BMI 25.0-29.9): Code(s): E66.3 - Overweight Category: Medical Plan: Reinforced diet/exercise as tolerated/lose weight Plan Follow up in 6 months Orders: Orders Influenza [id number] Immunization 12/28/23 Z23 - Encounter for immunization Medications: Refilled meclizine 25 mg PO TID 30 days PRN 90 tabs 0RF dizziness levothyroxine 150 mcg PO DAILY 90 days 90 tabs 3RF
== END 2023-12-28 14:28 | disposition home or self-care (01) ==
PROVIDERS: PCP Internal Medicine; Visit Provider Internal Medicine
DX: Z00.00 Encounter for general adult medical examination without abnormal findings (principal); I25.10 Atherosclerotic heart disease of native coronary artery without angina pectoris; F33.9 Major depressive disorder, recurrent, unspecified; E78.00 Pure hypercholesterolemia, unspecified; E03.9 Hypothyroidism, unspecified; R03.0 Elevated blood-pressure reading, without diagnosis of hypertension; G43.909 Migraine, unspecified, not intractable, without status migrainosus; D50.9 Iron deficiency anemia, unspecified; M51.360 Other intervertebral disc degeneration, lumbar region with discogenic back pain only; M50.90 Cervical disc disorder, unspecified, unspecified cervical region; M17.11 Unilateral primary osteoarthritis, right knee; M85.80 Other specified disorders of bone density and structure, unspecified site

== ENCOUNTER → 2023-12-28 13:09 | Outpatient (BNVA) | payer OTHER, SELFPAY | PROVIDERS: PCP Internal Medicine; Visit Provider Internal Medicine | DX: Z00.01 Encounter for general adult medical examination with abnormal findings (principal); I25.10 Atherosclerotic heart disease of native coronary artery without angina pectoris; E78.00 Pure hypercholesterolemia, unspecified; E03.9 Hypothyroidism, unspecified; G43.909 Migraine, unspecified, not intractable, without status migrainosus; D50.9 Iron deficiency anemia, unspecified; M51.360 Other intervertebral disc degeneration, lumbar region with discogenic back pain only; M50.90 Cervical disc disorder, unspecified, unspecified cervical region; M17.11 Unilateral primary osteoarthritis, right knee; M85.80 Other specified disorders of bone density and structure, unspecified site; E55.9 Vitamin D deficiency, unspecified; D05.12 Intraductal carcinoma in situ of left breast; G47.62 Sleep related leg cramps; H81.10 Benign paroxysmal vertigo, unspecified ear; F33.9 Major depressive disorder, recurrent, unspecified; E66.3 Overweight | CPT/HCPCS: 90471; 96127; 99396 ==

== ENCOUNTER 2024-02-22 11:30 | Outpatient (AMB) | payer OTHER, SELFPAY ==
--- NOTE | 2024-02-22 11:30 | MHC.OFFVIS ---
Intake Visit Reasons: Ultrasound results Intake Note: cell # [phone] Phlebotomy Coordinator: Phlebotomy Coordinator Present Allergies No Known Allergies Allergy (Verified 02/22/24 11:30) Is last menstrual period known: Yes HPI Comments Details: [facility] visit 3600-2221. I spent 9 minutes speaking with the patient on the phone plus an additional 5 minutes reviewing the chart and 5 minutes updating the medical record for a total of 19minutes. Patient presents via phone to discuss: Ultrasound findings, history of fibroids. Prior postmenopausal bleeding with a benign uterine biopsy. She does not report any further vaginal bleeding. REPLACED BY [facility] Medical History Cervical disc disease Dysplasia of cervix, low grade (LEIDY 1) Overweight (BMI 25.0-29.9) Vitamin D deficiency Nocturnal leg cramps Osteopenia Primary osteoarthritis of right knee Lumbar degenerative disc disease Iron deficiency anemia Migraine Acquired hypothyroidism Pure hypercholesterolemia Coronary artery disease Benign paroxysmal vertigo Benign tumor of thyroid gland Depression Hypertension Surgical History Hx of colonoscopy (~06/17/15) H/O thyroidectomy Hx of tonsillectomy History of placement of ear tubes History of lumpectomy of left breast Family History Other Heart disease No family history of cancer Social History Household Members: Family and Children Housing: Apartment Are you a primary manager home healthcare to a significant other at home: No Do you presently have visiting nurse or other home services: No Alcohol intake: former Comment: pt states feels less dizzy Patient Tobacco Use Status: Never used Tobacco e-Cigarette/Vaping Use: Never Used Second Hand Smoke Exposure: Yes service: No Current occupational status: employed 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 She is . She has 3 children. Cognitive needs: No Hearing needs: No Vision needs: Yes Review of Systems Const All systems reviewed & are unremarkable except as noted in HPI and below Endo Reports no additional complaints Physical Exam Const General: cooperative, healthy appearing and no acute distress Psych Appearance: well kempt Attitude: cooperative Thought process: Normal thought process present Telehealth Telehealth Telehealth Platform: [employer] Location of provider rendering services: practice address Location of patient: address on file Patient Identification confirmed using: Name, : Yes Telehealth method: video Patient verbally consented to treatment: Yes Patient verbally consented to billing insurance company: Yes Patient informed of any privacy concerns related to visit: Yes Results Reviewed Results Reviewed: [address] [address] Ultrasound Report Signed Patient: Ivonne Barrett MR#: [id number] : 1965 Acct:[id number] Age/Sex: 58 / F ADM Date: 12/27/23 Loc: HO.US Attending Dr: Tali Cavanaugh CNM Ordering Physician: Tali Cavanaugh CNM Date of Service: 12/27/23 Procedure(s): US pelvic and transvaginal Accession Number(s): [id number] cc: Gerry Dias MD; Tali Cavanaugh CNM~ EXAMINATION: US PELVIS CLINICAL INFORMATION: Uterine fibroids. COMPARISON: Pelvic ultrasound 06/30/2023. TECHNIQUE: Ultrasound of the pelvis is performed using both transabdominal and transvaginal transducers along with Doppler. Transvaginal imaging is performed due to inadequate visualization transabdominally. FINDINGS: Uterus: The uterus is anteverted and measures 8.5 x 5.1 x 6.0 cm. The double wall endometrial thickness could not be seen secondary to uterine fibroids. A large central fibroid is seen at the fundus measuring 3.5 x 3.4 x 3.7 cm (previously 3.6 x 3.4 x 3.3 cm). A small left fibroid present near the fundus has decreased in size measuring 0.5 x 0.6 x 0.5 cm (previously 1.7 x 1.4 x 1.5 cm). A new fibroid seen near the fundus anteriorly measures 1.9 x 1.5 x 1.7 cm. Adnexa: Both ovaries are visualized. There is normal color flow to the adnexa. There is no ovarian torsion. Small amount of free fluid seen in the left adnexa with a septation seen. Right ovary measures 1.9 x 1.0 x 1.8 cm for a volume of 1.8 mL and appears normal. Left ovary measures 1.6 x 1.1 x 1.3 cm for a volume of 1.2 mL and contains some calcifications. US/US pelvic and transvaginal IMPRESSION: Uterine fibroids as described above. Electronically signed by: Jermain Huang MD 02/21/2024 08:39 PM EST RP Dictated By: Jermain Huang MD Signed By: <Electronically signed by Jermain Huang MD in OV> 02/21/242038 DD/ 04 TD/TT: 12/27/23 1116 Signals Intelligence Analyst: SS Assessment & Plan Assessment & Plan (1) Fibroid: Code(s): D21.9 - Benign neoplasm of connective and other soft tissue, unspecified Category: Medical (2) Encounter to discuss test results: Code(s): Z71.2 - Person consulting for explanation of examination or test findings Plan Discussed: Ultrasound findings, new found fibroid and previous to were stable. Counseled re: Leiomyoma: common pelvic neoplasm. Differential diagnosis-may include but not limited to- leiomyosarcoma which is a rare uterine sarcoma 3-7/100,000, difficult to distinguish from fibroids on ultrasound from uterine sarcoma's. Unlikely any single test will have a highly positive predictive value. Hysterectomy is not recommended for sole purpose of excluding malignant neoplasm. Consult for surgical exploration, medical treatment, other treatments, verses expectant management, pros and cons, risks and benefits. Plan short interval follow up with ultrasound and then tele visit for results appointment. Report any PMB, pelvic pressure, bloating, or pain. Referral to MD if indicated for level of care if indicated. The patient expressed understanding and agreement with the plan of care. All of her questions and concerns were addressed to the best of my ability. This note is constructed using voice recognition software. While every effort has been made to ensure accuracy, lease administration supervisor errors may have been included. Orders: Orders US pelvic and transvaginal 03/28/24 D21.9 - Benign neoplasm of connective and other soft tissue, unspecified Coding Level of Care Code Tele Est Pt Level 3 (53521) Diagnoses Fibroid D21.9 Encounter to discuss test results Z71.2
== END 2024-02-22 12:59 | disposition home or self-care (01) ==
LOC: HO.HWS 11:30
PROVIDERS: PCP Internal Medicine; Visit Provider Advanced Practice Midwife
DX: D21.9 Benign neoplasm of connective and other soft tissue, unspecified (principal); Z71.2 Person consulting for explanation of examination or test findings
CPT/HCPCS: 99213

== ENCOUNTER → 2024-02-22 11:30 | Outpatient (BNVA) | payer OTHER, SELFPAY | PROVIDERS: PCP Internal Medicine; Visit Provider Advanced Practice Midwife ==

== ENCOUNTER 2024-03-28 09:45 | Outpatient (REF) | payer OTHER, SELFPAY ==
--- NOTE | ~2024-03-28 | US_ITS ---
EXAMINATION: US PELVIS TRANSABDOMINAL AND TRANSVAGINAL HISTORY: D21.9 - Benign neoplasm of connective and other soft tissue, unspecified COMPARISON: Comparison is made with a prior examination dated 12/27/2023. TECHNIQUE: Transabdominal and endovaginal real-time 2D najera-scale ultrasound was performed. Color Doppler was also performed. FINDINGS: Uterus: The uterus is normal in size, measuring 9.7 x 4.3 x 6.1 cm. Myometrium has a normal echotexture. Again seen is a central fibroid in the fundus demonstrating calcification, measuring 3.6 x 3.8 x 3.3 cm (previously 3.5 x 3.4 x 3.7 cm). A 6 mm fibroid is again noted on the left. There is a 2.1 x 1.7 x 2.1 cm partially calcified anterior fibroid on the left which previously measured 1.9 x 1.5 x 1.7 cm. Endometrium: The endometrial stripe is not visualized. Right ovary: The right ovary measures 2.6 x 1.7 x 1.5 cm. The right ovary is normal in size and echotexture. Left ovary: The left ovary measures 1.6 x 1.1 x 0.9 cm. The left ovary is normal in size and echotexture. There are tubular anechoic structures adjacent to the left ovary which may represent a hydrosalpinx or loculated free fluid. Color Doppler analysis of the bilateral ovarian arteries and veins are normal. Pelvic fluid: Possible in the left adnexa. US/US pelvic and transvaginal IMPRESSION: 1. Fibroid uterus as described without significant change from the prior study. 2. Tubular anechoic structures in the left adnexa which may represent hydrosalpinx or loculated fluid. Electronically signed by: Manny Chavez MD 03/29/2024 07:23 AM [facility] [place]
== END 2024-03-28 09:46 | disposition home or self-care (01) ==
LOC: HO.US 09:45
PROVIDERS: PCP Internal Medicine; Visit Provider Advanced Practice Midwife
DX: D21.9 Benign neoplasm of connective and other soft tissue, unspecified (principal)
CPT/HCPCS: 76830; 76856

== ENCOUNTER → 2024-03-28 09:47 | Outpatient (BNV) | payer OTHER, SELFPAY | PROVIDERS: PCP Internal Medicine; Visit Provider Radiology Diagnostic Radiology | DX: D21.9 Benign neoplasm of connective and other soft tissue, unspecified (principal) | CPT/HCPCS: 76830; 76856 ==

== ENCOUNTER 2024-04-18 15:17 | Outpatient (AMB) | payer OTHER, SELFPAY ==
--- NOTE | 2024-04-18 15:18 | A.OFFVIS_ITS ---
Intake Visit Reasons: TV US follow up ok per [facility] Intake Note: cell # [phone] Plating Operator: Plating Operator Present Allergies No Known Allergies Allergy (Verified 04/24/24 15:33) Is last menstrual period known: Yes HPI Comments Details: Tele Health Visit Total time I personally spent on visit and management today: 19 minutes. Time spent included review of pertinent office notes in the electronic health record; review of laboratory and imaging results; review of personal family medical history; discussing diagnosis and plan of care with the patient; docu menting the encounter in the EMR. Patient presents to discuss: Ultrasound findings. [facility] Medical History (Updated 04/18/24 @ 16:08 by Tali Cavanaugh CNM) Encounter to discuss test results Cervical disc disease Dysplasia of cervix, low grade (LEIDY 1) Overweight (BMI 25.0-29.9) Vitamin D deficiency Nocturnal leg cramps Osteopenia Primary osteoarthritis of right knee Lumbar degenerative disc disease Iron deficiency anemia Migraine Acquired hypothyroidism Pure hypercholesterolemia Coronary artery disease Benign paroxysmal vertigo Benign tumor of thyroid gland Depression Hypertension Surgical History Hx of colonoscopy (~06/17/15) H/O thyroidectomy Hx of tonsillectomy History of placement of ear tubes History of lumpectomy of left breast Family History Other Heart disease No family history of cancer Social History Household Members: Family and Children Housing: Apartment Are you a primary care transition coordinator to a significant other at home: No Do you presently have visiting nurse or other home services: No Alcohol intake: former Comment: pt states feels less dizzy Patient Tobacco Use Status: Never used Tobacco e-Cigarette/Vaping Use: Never Used Second Hand Smoke Exposure: Yes service: No Current occupational status: employed 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 She is . She has 3 children. Cognitive needs: No Hearing needs: No Vision needs: Yes Review of Systems Const All systems reviewed & are unremarkable except as noted in HPI and below Endo Reports no additional complaints Physical Exam Const General: cooperative, healthy appearing and no acute distress Psych Appearance: well kempt Attitude: cooperative Thought process: Normal thought process present Telehealth Telehealth Telehealth Platform: [employer] Location of provider rendering services: practice address Location of patient: other Patient Identification confirmed using: Name, : Yes Telehealth method: video Patient verbally consented to treatment: Yes Patient verbally consented to billing insurance company: Yes Patient informed of any privacy concerns related to visit: Yes Results Reviewed Results Reviewed: [address] [address] Ultrasound Report Signed Patient: Ivonne Barrett MR#: [id number] : 1965 Acct:[id number] Age/Sex: 58 / F ADM Date: 03/28/24 Loc: HO.US Attending Dr: Tali Cavanaugh CNM Ordering Physician: Tali Cavanaugh CNM Date of Service: 03/28/24 Procedure(s): US pelvic and transvaginal Accession Number(s): [id number] cc: Gerry Dias MD; Tali Cavanaugh CNM~ EXAMINATION: US PELVIS TRANSABDOMINAL AND TRANSVAGINAL HISTORY: D21.9 - Benign neoplasm of connective and other soft tissue, unspecified COMPARISON: Comparison is made with a prior examination dated 12/27/2023. TECHNIQUE: Transabdominal and endovaginal real-time 2D najera-scale ultrasound was performed. Color Doppler was also performed. FINDINGS: Uterus: The uterus is normal in size, measuring 9.7 x 4.3 x 6.1 cm. Myometrium has a normal echotexture. Again seen is a central fibroid in the fundus demonstrating calcification, measuring 3.6 x 3.8 x 3.3 cm (previously 3.5 x 3.4 x 3.7 cm). A 6 mm fibroid is again noted on the left. There is a 2.1 x 1.7 x 2.1 cm partially calcified anterior fibroid on the left which previously measured 1.9 x 1.5 x 1.7 cm. Endometrium: The endometrial stripe is not visualized. Right ovary: The right ovary measures 2.6 x 1.7 x 1.5 cm. The right ovary is normal in size and echotexture. Left ovary: The left ovary measures 1.6 x 1.1 x 0.9 cm. The left ovary is normal in size and echotexture. There are tubular anechoic structures adjacent to the left ovary which may represent a hydrosalpinx or loculated free fluid. Color Doppler analysis of the bilateral ovarian arteries and veins are normal. Pelvic fluid: Possible in the left adnexa. US/US pelvic and transvaginal IMPRESSION: 1. Fibroid uterus as described without significant change from the prior study. 2. Tubular anechoic structures in the left adnexa which may represent hydrosalpinx or loculated fluid. Electronically signed by: Manny Chavez MD 03/29/2024 07:23 AM EST Dictated By: Manny Chavez MD Signed By: <Electronically signed by Manny Chavez MD in OV> 03/29/24 0723 DD/ 1107 TD/TT: 03/28/[address] Control Technician: Assessment & Plan Assessment & Plan (1) Fibroid: Code(s): D21.9 - Benign neoplasm of connective and other soft tissue, unspecified Category: Medical Plan: Discussed: Fibroids-calcifications. Counseled re: Leiomyoma: common pelvic neoplasm. Differential diagnosis-may include but not limited to- leiomyosarcoma which is a rare uterine sarcoma 3-7/100,000, difficult to distinguish from fibroids on ultrasound from uterine sarcoma's. Unlikely any single test will have a highly positive predictive value. Hysterectomy is not recommended for sole purpose of excluding malignant neoplasm. Consult for surgical exploration, medical treatment, other treatments, verses expectant management, pros and cons, risks and benefits. Report any PMB, pelvic pressure, bloating, or pain-has a appointment Tuesday for evaluation. Referral to MD if indicated for level of care if indicated. (2) Encounter to discuss test results: Code(s): Z71.2 - Person consulting for explanation of examination or test findings Category: Medical Plan Discussed: Ultrasound findings and plan of care reviewed. Due to the pinching discomfort on the lower left pelvic advised to come into the office as soon as possible for a physical exam and possible treatment for hydrosalpinx. Patient is agreeable to plan of care. The patient expressed understanding and agreement with the plan of care. All of her questions and concerns were addressed to the best of my ability. This note is constructed using voice recognition software. While every effort has been made to ensure accuracy, gambling monitor errors may have been included. Coding Level of Care Code Tele Est Pt Level 3 (76189) Diagnoses Fibroid D21.9 Encounter to discuss test results Z71.2
== END 2024-04-18 16:48 | disposition home or self-care (01) ==
LOC: HO.HWS 15:17
PROVIDERS: PCP Internal Medicine; Visit Provider Advanced Practice Midwife
DX: D21.9 Benign neoplasm of connective and other soft tissue, unspecified (principal); Z71.2 Person consulting for explanation of examination or test findings
CPT/HCPCS: 99213

== ENCOUNTER 2024-04-24 15:27 | Outpatient (AMB) | payer OTHER, SELFPAY ==
--- NOTE | 2024-04-24 15:33 | A.OFFVIS_ITS ---
Intake Visit Reasons: pelvic pain Corrections Specialist: Corrections Specialist Present (Giovana) Allergies No Known Allergies Allergy (Verified 04/24/24 15:33) HPI Comments Details: Patient is here today w/concerns for left lower pelvic pain, sharp, brief last ing, no pain today. History of fibroids. [facility] Medical History (Updated 04/18/24 @ 16:08 by Tali Cavanaugh CNM) Encounter to discuss test results Cervical disc disease Dysplasia of cervix, low grade (LEIDY 1) Overweight (BMI 25.0-29.9) Vitamin D deficiency Nocturnal leg cramps Osteopenia Primary osteoarthritis of right knee Lumbar degenerative disc disease Iron deficiency anemia Migraine Acquired hypothyroidism Pure hypercholesterolemia Coronary artery disease Benign paroxysmal vertigo Benign tumor of thyroid gland Depression Hypertension Surgical History Hx of colonoscopy (~06/17/15) H/O thyroidectomy Hx of tonsillectomy History of placement of ear tubes History of lumpectomy of left breast Family History Other Heart disease No family history of cancer Social History Household Members: Family and Children Housing: Apartment Are you a primary rn home care to a significant other at home: No Do you presently have visiting nurse or other home services: No Alcohol intake: former Comment: pt states feels less dizzy Patient Tobacco Use Status: Never used Tobacco e-Cigarette/Vaping Use: Never Used Second Hand Smoke Exposure: Yes service: No Current occupational status: employed 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 She is . She has 3 children. Cognitive needs: No Hearing needs: No Vision needs: Yes Review of Systems Const All systems reviewed & are unremarkable except as noted in HPI and below Physical Exam Const General: cooperative, healthy appearing and no acute distress Orientation/consciousness: patient oriented x3 GI Inspection: Yes normal to inspection Palpation (GI): Soft to palpation and Other GI palpation findings present (Nontender) Rectal Exam - Female: visual inspection normal General: Yes bladder normal to palpation External Female Exam: normal appearance of the urethra Speculum Exam - Vagina: normal appearance of the vagina, normal palpation, normal vaginal discharge and vagina atrophic Speculum Exam - Cervix: normal appearance of the cervix and normal palpation Bimanual exam- vagina & uterus: normal bimanual exam, normal palpation, uterine size normal, bladder normal to palpation, normal palpation, uterine shape normal and non-tender Bimanual Exam- Adnexa, other: normal adnexae and Other (soft stool noted left side) Neuro General: patient oriented x3 Results AMB Urinalysis, Automated UA Leukoctes 0 Epi/uL Last Edit by Indiana Michaels Wendy on 04/24/24 15:38 UA Nitrite Negative Last Edit by Indiana Michaels [facility] on 04/24/24 15:38 UA Urobilinogen 0 mg/dL Last Edit by Indiana Michaels [facility] on 04/24/24 15:3 8 UA Protein 0.5 mg/dL Last Edit by Indiana Michaels [facility] on 04/24/24 15:38 UA pH 6.0 Last Edit by Indiana Michaels [facility] on 04/24/24 15:38 UA Blood 0 Alex/uL Last Edit by Indiana Michaels [facility] on 04/24/24 15:38 UA Specific [place] 1.015 Last Edit by Indiana Michaels [facility] on 04/24/24 15:38 UA Ketone Negative Last Edit by Indiana Michaels Wendy on 04/24/24 15:38 UA Bilirubin 0 mg/dL Last Edit by Indiana Michaels [facility] on 04/24/24 15:38 UA Glucose 0 mg/dL Last Edit by Indiana Michaels [facility] on 04/24/24 15:38 Results Reviewed Results Reviewed: Laboratory Last Values Urine pH (Auto) 6.0 04/24/24 15:37 Specific [place] (Auto) 1.015 04/24/24 15:37 Urine Protein (Auto) 0.5 mg/dL 04/24/24 15:37 Glucose (UA)(Auto) 0 mg/dL 04/24/24 15:37 Urine Ketones (Auto) Negative 04/24/24 15:37 Urine Blood (Auto) 0 Alex/uL 04/24/24 15:37 Urine Nitrite (Auto) Negative 04/24/24 15:37 Urine Bilirubin (Auto) 0 mg/dL 04/24/24 15:37 Urine Urobilinogen (Auto) 0 mg/dL 04/24/24 15:37 Leukocyte Esterase (Auto) 0 Epi/uL 04/24/24 15:[address] [address] Ultrasound Report Signed Patient: Ivonne Barrett MR#: [id number] : 1965 Acct:[id number] Age/Sex: 58 / F ADM Date: 03/28/24 Loc: HO.US Attending Dr: Tali Cavanaugh CNM Ordering Physician: Tali Cavanaugh CNM Date of Service: 03/28/24 Procedure(s): US pelvic and transvaginal Accession Number(s): [id number] cc: Gerry Dias MD; Tali Cavanaugh CNM~ EXAMINATION: US PELVIS TRANSABDOMINAL AND TRANSVAGINAL HISTORY: D21.9 - Benign neoplasm of connective and other soft tissue, unspecified COMPARISON: Comparison is made with a prior examination dated 12/27/2023. TECHNIQUE: Transabdominal and endovaginal real-time 2D najera-scale ultrasound was performed. Color Doppler was also performed. FINDINGS: Uterus: The uterus is normal in size, measuring 9.7 x 4.3 x 6.1 cm. Myometrium has a normal echotexture. Again seen is a central fibroid in the fundus demonstrating calcification, measuring 3.6 x 3.8 x 3.3 cm (previously 3.5 x 3.4 x 3.7 cm). A 6 mm fibroid is again noted on the left. There is a 2.1 x 1.7 x 2.1 cm partially calcified anterior fibroid on the left which previously measured 1.9 x 1.5 x 1.7 cm. Endometrium: The endometrial stripe is not visualized. Right ovary: The right ovary measures 2.6 x 1.7 x 1.5 cm. The right ovary is normal in size and echotexture. Left ovary: The left ovary measures 1.6 x 1.1 x 0.9 cm. The left ovary is normal in size and echotexture. There are tubular anechoic structures adjacent to the left ovary which may represent a hydrosalpinx or loculated free fluid. Color Doppler analysis of the bilateral ovarian arteries and veins are normal. Pelvic fluid: Possible in the left adnexa. US/US pelvic and transvaginal IMPRESSION: 1. Fibroid uterus as described without significant change from the prior study. 2. Tubular anechoic structures in the left adnexa which may represent hydrosalpinx or loculated fluid. Electronically signed by: Manny Chavez MD 03/29/2024 07:23 AM EST Dictated By: Manny Chavez MD Signed By: <Electronically signed by Manny Chavez MD in OV> 03/29/24 0723 DD/ 1107 TD/TT: 03/28/24 1127 Circus Hand: Assessment & Plan Assessment & Plan (1) Fibroid: Code(s): D21.9 - Benign neoplasm of connective and other soft tissue, unspecified Category: Medical Plan Reviewed ultrasound, and prior scans in database, possible small left hydrosalpinx, patient nontender exam today reviewed pelvic warnings. Counseled re: Leiomyoma: common pelvic neoplasm. Differential diagnosis-may include but not limited to- leiomyosarcoma which is a rare uterine sarcoma 3- 7/100,000, difficult to distinguish from fibroids on ultrasound from uterine sarcoma's. Unlikely any single test will have a highly positive predictive value. Hysterectomy is not recommended for sole purpose of excluding malignant neoplasm. Consult for surgical exploration, medical treatment, other treatments, verses expectant management, pros and cons, risks and benefits. Expectant management follow up in 6 months, then yearly for stability. Patient prefers to proceed with expectant management. Report any PMB, pelvic pressure, bloating, or pain. Referral to MD if indicated for level of care if indicated. The patient expressed understanding and agreement with the plan of care. All of her questions and concerns were addressed to the best of my ability. This note is constructed using voice recognition software. While every effort has been made to ensure accuracy, wire cutter errors may have been included. Orders: Orders AMB Urinalysis Automated Today R10.2 - Pelvic and perineal pain Bacterial Vaginosis Panel Today N89.8 - Other specified noninflammatory disorders of vagina US pelvic and transvaginal Today D21.9 - Benign neoplasm of connective and other soft tissue, unspecified Coding Level of Care Code Est Pt Level 3 (50968) Diagnoses Fibroid D21.9
== END 2024-04-24 16:27 | disposition home or self-care (01) ==
LOC: HO.HWS 15:27
PROVIDERS: PCP Internal Medicine; Visit Provider Advanced Practice Midwife
DX: D21.9 Benign neoplasm of connective and other soft tissue, unspecified (principal); R10.2 Pelvic and perineal pain
CPT/HCPCS: 99213

== ENCOUNTER 2024-04-24 15:27 | Outpatient (REF) | payer OTHER, SELFPAY ==
[2024-04-24 21:58] LABS: Bacterial Vaginosis PCR POSITIVE (Negative); Candida Group PCR NOT DETECTED (Not Detect); Candida glab krusei PCR NOT DETECTED (Not Detect); Trichomonas vaginalis PCR NOT DETECTED (Not Detect)
== END 2024-04-24 15:28 | disposition home or self-care (01) ==
LOC: HO.LAB 15:27
PROVIDERS: PCP Internal Medicine; Visit Provider Advanced Practice Midwife
DX: N89.8 Other specified noninflammatory disorders of vagina (principal); R10.2 Pelvic and perineal pain; D21.9 Benign neoplasm of connective and other soft tissue, unspecified
CPT/HCPCS: 81003; 81515; 99212

== ENCOUNTER 2024-06-26 13:22 | Outpatient (REF) | payer OTHER, SELFPAY ==
[2024-06-27 09:59] LABS: Bacterial Vaginosis PCR POSITIVE (Negative); Candida Group PCR NOT DETECTED (Not Detect); Candida glab krusei PCR NOT DETECTED (Not Detect); Trichomonas vaginalis PCR NOT DETECTED (Not Detect)
== END 2024-06-26 13:23 | disposition home or self-care (01) ==
LOC: HO.LAB 13:22
PROVIDERS: PCP Internal Medicine; Visit Provider Advanced Practice Midwife
DX: Z01.419 Encounter for gynecological examination (general) (routine) without abnormal findings (principal); L28.0 Lichen simplex chronicus; R10.2 Pelvic and perineal pain
CPT/HCPCS: 81515; 99212; 99396; 99459

== ENCOUNTER 2024-06-26 13:22 | Outpatient (AMB) | payer OTHER, SELFPAY ==
--- NOTE | 2024-06-26 13:26 | MHC.OFFVIS ---
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 She is doing well with sales representative electric service concerns. slight itching and swelling on the left labia, she thinks from peripads. She reports an occasional left lower sided pain, not worsening. History of fibroids, left possible hydrosalpinx structure previously seen, has a follow up in September. She is not sexually active in years. Admits to left-sided breast pain since her breast cancer treatment post radiation. Attempting to eat a healthy diet with calcium and vitamin D and stays active with exercise. Last pap smear; 2023. Last mammogram; 2023. [facility] UTD[facility] Medical History (Updated 06/26/24 @ 14:40 by Tali Cavanaugh CNM) Pelvic pain Lichen simplex chronicus Encounter to discuss test results Cervical disc disease Dysplasia of cervix, low grade (LEIDY 1) Overweight (BMI 25.0-29.9) Vitamin D deficiency Nocturnal leg cramps Osteopenia Primary osteoarthritis of right knee Lumbar degenerative disc disease Iron deficiency anemia Migraine Acquired hypothyroidism Pure hypercholesterolemia Coronary artery disease Benign paroxysmal vertigo Benign tumor of thyroid gland Depression Hypertension Surgical History Hx of colonoscopy (~06/17/15) H/O thyroidectomy Hx of tonsillectomy History of placement of ear tubes History of lumpectomy of left breast Family History (Updated 06/26/24 @ 13:35 by VILMA Elizalde) Family/Other Testicle cancer Other Heart disease No family history of cancer Social History Household Members: Family and Children Housing: Apartment Are you a primary primary health care nurse to a significant other at home: No Do you presently have visiting nurse or other home services: No Alcohol intake: former Comment: pt states feels less dizzy Patient Tobacco Use Status: Never used Tobacco e-Cigarette/Vaping Use: Never Used Second Hand Smoke Exposure: Yes service: No Current occupational status: employed 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 She is . She has 3 children. Cognitive needs: No Hearing needs: No Vision needs: Yes Female Reproductive History Menstrual Total pregnancies: 3 Full term: 3 Number of Living Children: 3 Date of last pap smear: 06/23/23 (neg pap and hpv) History of abnormal pap smear: Yes (see intake note) Date of Mammogram: 08/03/23 (Birad 2) Review of Systems Const All systems reviewed & are unremarkable except as noted in HPI and below Reports as per HPI Eyes Reports no additional complaints ENT Reports no additional complaints Card Reports no additional complaints Resp Reports no additional complaints GI Reports as per HPI and Reports no additional complaints Reports as per HPI Musc Reports no additional complaints Skin/Breast Reports as per HPI Neuro Reports no additional complaints Psych Reports no additional complaints Endo Reports no additional complaints Genaro/Lymph Reports no additional complaints Aller/Immun Reports no additional complaints Physical Exam Vital Signs: Last Vital Signs BP 122/86 06/26/24 13:29 BMI result Body Mass Index 30.4 Const General: cooperative, healthy appearing, no acute distress, well developed and alert Orientation/consciousness: patient oriented x3 HEENT Head: Yes normal to inspection Eyes General: appearance normal, both eyes and all related structures Neck Neck: Yes normal visual inspection Thyroid: Thyroid normal Chest Other: surgical scarring on left, slightly tender (reports always sensitive since surgery and radiation) Chest palpation & inspection: normal inspection of the chest and other (no puckering, dimpling, peau de orange, retraction, discharge, masses) Breast/axilla inspection: normal inspection of the breasts Breast/axilla palpation: normal palpation of the breasts Resp Effort & Inspection: normal respiratory effort GI Other: Slightly tender anteriorly superficial muscle region around josiane umbilical Inspection: Yes normal to inspection Palpation (GI): Soft to palpation Rectal Exam - Female: deferred Other: bilateral labia majora edema, scratch huang and increased syptoms on the left lower labia. General: Yes bladder normal to palpation External Female Exam: normal external appearance and normal appearance of the urethra Speculum Exam - Vagina: normal appearance of the vagina, normal palpation, abnormal vaginal discharge frothy and vagina atrophic Speculum Exam - Cervix: normal appearance of the cervix and normal palpation Bimanual exam- vagina & uterus: normal bimanual exam, normal palpation, uterine size normal, bladder normal to palpation, normal palpation and non-tender Bimanual Exam- Adnexa, other: no masses Skin General skin exam: no rashes or lesions noted Rashes: no rashes Neuro General: patient oriented x3 Cognition (Neuro): normal cognition Extrem General: Yes normal to inspection Psych Attitude: cooperative Thought process: Normal thought process present Assessment & Plan Assessment & Plan (1) Encounter for well woman exam with routine gynecological exam: Code(s): Z01.419 - Encounter for gynecological examination (general) (routine) without abnormal findings Category: Medical Plan: Discussed: Current recommendations for pap smears per ASCCP guidelines. Breast awareness, periodic self breast exams and yearly mammogram. Maintain a healthy lifestyle, well balanced diet including Calcium 1,200 mg and Vitamin D 600 IU daily, and routine exercise. Contact the office with any postmenopausal bleeding. Patient verbalizes understanding and agrees to the plan of care. She was given opportunity to ask questions and all questions were answered to the best of my ability. 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 This note is constructed using voice recognition software. While every effort has been made to ensure accuracy, marine cargo inspector errors may have been included. (2) Lichen simplex chronicus: Code(s): L28.0 - Lichen simplex chronicus Category: Medical Plan: Discussed clinical findings today consistent with lichen simplex chronicus. Rubbing of labia is together, chronic itching and scratching evidence. Use of antihistamine- in example Zyrtec, Rx topical corticosteroid. Instructions: Clean with warm water, no soaps, scented products. Use a cool cloth to the area several times a day if swollen and/or uncomfortable. Wear loose, cotton underclothes, avoid tight outer clothing. Air when possible. Complete all medications as prescribed. Await final pending results for any changes in the plan of care. Call the office if there is no improvement in 24-48hrs., or if worsening symptoms. Follow up p.r.n.. Total time I personally spent on visit and management today: ?15 minutes. Time spent included review of pertinent office notes in the electronic health record; review of laboratory and imaging results; review of personal family medical history; performing physical exam; discussing diagnosis and plan of care with the patient; documenting the encounter in the EMR. (3) Pelvic pain: Code(s): R10.2 - Pelvic and perineal pain Category: Medical Plan Plan pelvic ultrasound, BV panel obtained. Discussed common reasons for abdominal discomfort in the pelvis, general abdominal region and superficial muscle and fascia irritations. Self-help measures for comfort reviewed. Follow up results appointment to be made. Orders: Orders Bacterial Vaginosis Panel Today N89.8 - Other specified noninflammatory disorders of vagina US pelvic and transvaginal Today R10.2 - Pelvic and perineal pain Medications: New betamethasone dipropionate 0.05% apply to the area twice a day for two weeks, then decrease to daily at bedtime three times a week, for one week, then twice a week at bedtime for one week. 1 appl topical BID 45 grams 1RF 7 days Coding Level of Care Code Est Pt Level 2 (30284) Est Pt Prev Care 40-64y(59768) Diagnoses Encounter for well woman exam with routine gynecological exam Z01.419 Lichen simplex chronicus L28.0 Pelvic pain R10.2
[2024-06-26 13:29] VITALS: BP 122/86; BMI 30.4
== END 2024-06-26 14:19 | disposition home or self-care (01) ==
LOC: HO.HWS 13:22
PROVIDERS: PCP Internal Medicine; Visit Provider Advanced Practice Midwife
DX: Z01.419 Encounter for gynecological examination (general) (routine) without abnormal findings (principal); L28.0 Lichen simplex chronicus; R10.2 Pelvic and perineal pain
CPT/HCPCS: 99212; 99396; 99459

== ENCOUNTER 2024-06-27 12:27 | Outpatient (AMB) | payer OTHER, SELFPAY ==
--- NOTE | 2024-06-27 12:32 | A.OFFPC_ITS ---
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 Required: No Accompanied by: Self / Same As Patient Allergies No Known Allergies Allergy (Verified 06/27/24 12:59) Medication List - Last Reconciled 06/27/24 by Gerry Dias MD amitriptyline 50 mg (2 x 25 mg) PO DAILY 90 days betamethasone dipropionate 0.05% 1 appl topical BID 7 days citalopram 20 mg PO DAILY 90 days clotrimazole-betamethasone 1-0.05 % 1 appl topical BID 7 days ferrous sulfate (Iron (ferrous sulfate)) 325 mg PO BID levothyroxine 150 mcg PO DAILY 90 days meclizine 25 mg PO TID PRN 30 days metoprolol succinate ER 25 mg PO DAILY 90 days Tobacco use date assessed: 06/27/24 Dental Screening Dental Screen Date: 06/27/24 Did you have a dental visit in the last 12 months?: No Did you have a dental problem in the last 6 months where you did not have access to dental care?: No Was dental information given to patient?: No HPI 6 Months f/u HPI Details Patient comes in today for her follow up visit States that she feels okay Relates that she split her right earlobe while trying to remove an old earring a few weeks ago - would like to see if she can be referred to somebody who can help get this repaired She denies any headaches or dizziness Denies any chest pains, no shortness of breath No nausea/vomiting, no abdominal pain No change in bowel habits noted She does not have any follow-up labs done recently [facility] Medical History Pelvic pain Lichen simplex chronicus Encounter to discuss test results Cervical disc disease Dysplasia of cervix, low grade (LEIDY 1) Overweight (BMI 25.0-29.9) Vitamin D deficiency Nocturnal leg cramps Osteopenia Primary osteoarthritis of right knee Lumbar degenerative disc disease Iron deficiency anemia Migraine Acquired hypothyroidism Pure hypercholesterolemia Coronary artery disease Benign paroxysmal vertigo Benign tumor of thyroid gland Depression Hypertension Surgical History Hx of colonoscopy (~06/17/15) H/O thyroidectomy Hx of tonsillectomy History of placement of ear tubes History of lumpectomy of left breast Family History Family/Other Testicle cancer Other Heart disease No family history of cancer Social History Household Members: Family and Children Housing: Apartment Are you a primary healthcare receptionist to a significant other at home: No Do you presently have visiting nurse or other home services: No Alcohol intake: former Comment: pt states feels less dizzy Patient Tobacco Use Status: Never used Tobacco e-Cigarette/Vaping Use: Never Used Second Hand Smoke Exposure: Yes service: No Current occupational status: employed 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 She is . She has 3 children. Cognitive needs: No Hearing needs: No Vision needs: Yes Questionnaire PHQ-9 Over the last 2 weeks, how often have you been bothered by any of the following problems? 1. Little interest or pleasure in doing things: not at all 2. Feeling down, depressed, or hopeless: several days 3. Trouble falling or staying asleep, or sleeping too much: not at all 4. Feeling tired or having little energy: several days 5. Poor appetite or overeating: not at all 6. Feeling bad about yourself - or that you are a failure or have let yourself or your family down: not at all 7. Trouble concentrating on things, such as reading the newspaper or watching television: not at all 8. Moving or speaking so slowly that other people could have noticed. Or the opposite - being so fidgety or restless that you have been moving around a lot more than usual: not at all 9. Thoughts that you would be better off or of hurting yourself in some way: not at all Total score: 2 Depression Screening Interpretation: Negative Depression Screening Done: Yes [id number] - PHQ-9 Billing: Yes Source: Developed by Drs. Manny Gardiner, Rashida Wynn, Livan Vigil and colleagues, with an educational slade from [employer]. Thrive Questionnaire Date Thrive assessed: 06/27/24 I am a: Patient What is your living situation today?: I have a steady place to live Within the past 12 months, did the food you bought not last and you didn't have the money to get more?: Never true Within the past 12 months, did you worry whether your food would run out before you got money to buy more?: Never true Do you have trouble paying for medicines?: Yes Do you have trouble getting transportation to medical appointments?: No Do you have trouble paying your heating and electricity bill?: Yes Do you have trouble taking care of your child, family member or friend?: No Do you have trouble with day-to-day activities such as bathing, preparing meals, shopping, managing finances, etc.?: No Are you currently unemployed and looking for a job?: Yes Are you interested in more education?: No Please select the resources that you would like help with: Paying for medicine and Utilities Currently or been in a relationship where the following occur: No concerns reported THRIVE Score: 1 AUDIT C Alcohol Use Questionnaire (AUDIT-C) 1. How often do you have a drink containing alcohol?: Never 3. How often do you have six or more drinks on one occasion?: Never Total Score: 0 Score Reviewed/Action Taken: Yes ALISA-7 AMB Questionnaire ALISA-7 Date ALISA - 7 assessed: 06/27/24 Feeling nervous, anxious, or on edge: 0 = Not at all Not being able to stop or control worryin = Not at all Worrying too much about different things: 1 = Several days Trouble relaxin = More than half the days Being so restless that it is hard to sit still: 0 = Not at all Becoming easily annoyed or irritable: 0 = Not at all Feeling afraid as if something awful might happen: 1 = Several days Total ALISA-7 score (0-4 normal; 5-9 mild; 10-14 moderate; 15-21 severe): 4 Source: Developed by Drs. Manny Gardiner, Rashida Wynn, Livan Vigil and colleagues, with an educational slade from [employer]. Review of Systems Const Denies chills, Denies fatigue, Denies fever(s) and Denies headache(s) ENT Denies dysphagia, Denies dizziness, Denies otalgia, Denies headache(s), Denies neck pain, Denies odynophagia and Denies sore throat Card Denies chest pain, Denies rapid heart rate, Denies irregular heart rhythm, Denies palpitations and Reports dyspnea on exertion Resp Denies chest congestion, Denies cough and Reports dyspnea on exertion GI Denies abdominal pain, Denies constipation, Denies dysphagia, Denies heartburn, Denies diarrhea, Denies nausea, Denies odynophagia and Denies vomiting Denies urinary frequency, Denies dysuria and Denies urinary urgency Musc Denies back pain, Denies arthralgias and Denies neck pain Skin/Breast Details: (+) split right ear lobe Denies rash Neuro Denies dizziness, Denies headache(s) and Denies paresthesias Psych Denies anxiety and Reports depression Endo Denies fatigue and Denies palpitations Genaro/Lymph Denies easy bruising Physical exam (Primary Care) Vital Signs: Last Vital Signs Pulse 86 06/27/24 12:33 BP 116/86 06/27/24 12:33 Pulse Ox 94 06/27/24 12:33 Oxygen Delivery Method Room Air 06/27/24 12:33 BMI result Body Mass Index 30.4 Tobacco/Smoking Status: Tobacco use Status Tobacco use date assessed 06/27/24 06/27/24 12:35 Patient Tobacco Use Status Never used Tobacco 06/27/24 12:35 e-Cigarette/Vaping Use Never Used 06/27/24 12:35 PHQ-9: PHQ-9 Score PHQ-9: Total score 2 06/27/24 13:06 Depression Screening Interpretation: Negative Thrive Assessment: Date of Thrive Assessment Date Thrive assessed 06/27/24 06/27/24 12:35 Currently or been in a relationship where the following occur: No concerns reported Const General: no acute distress and alert HENMT Other: (+) split right ear lobe Ears: TM's normal bilaterally and EAC's normal Throat: Yes posterior oropharynx normal and Yes tonsils normal (no TP congestion) Neck Neck: Yes no lymphadenopathy and Yes supple Thyroid: Thyroid normal Resp Auscultation: clear to auscultation bilaterally, no rales and no wheezes Cardio Rate: regular rate Rhythm: regular rhythm Heart sounds: no murmurs GI Palpation (GI): Soft to palpation and nontender Auscultation: normal bowel sounds General: Yes no CVA tenderness Back/Spine/Pelvis Back: no CVA tenderness Cervical Spine: Cervical spine tenderness (mild) Thoracic/Lumbar Spine: lumbar spinal tenderness (mild) Skin Rashes: no rashes Extrem General: Yes no clubbing, cyanosis or edema Right lower extremity: knee Details: tenderness (mild); no swelling Coding Level of Care Code Est Pt Level 4 (27261) Diagnoses Coronary artery disease involving upper [place] coronary artery of upper [place] heart without angina pectoris I25.10 Coronary Disease-Associated Artery/Lesion type: upper [place] artery [place] vs. transplanted heart: upper [place] heart Associated angina: without angina Pure hypercholesterolemia E78.00 Acquired hypothyroidism E03.9 Elevated blood pressure reading in office without diagnosis of hypertension R03.0 Migraine without status migrainosus, not intractable, unspecified migraine type G43.909 Migraine type: unspecified Status migrainosus presence: without status migrainosus Intractability: not intractable Iron deficiency anemia, unspecified iron deficiency anemia type D50.9 Iron deficiency anemia type: unspecified iron deficiency Degeneration of intervertebral disc of lumbar region with discogenic back pain M51.360 Disc-related pain type: discogenic back pain only Cervical disc disease M50.90 Primary osteoarthritis of right knee M17.11 Osteopenia, unspecified location M85.80 Osteopenia location: unspecified Vitamin D deficiency E55.9 Ductal carcinoma in situ (DCIS) of left breast D05.12 Nocturnal leg cramps G47.62 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 Benign paroxysmal vertigo, unspecified laterality H81.10 Laterality: unspecified laterality Episode of recurrent major depressive disorder, unspecified depression episode severity F33.9 Depression Type: major depressive disorder Major depression recurrence: recurrent Active/Remission status: currently active Major depression episode severity: unspecified Overweight (BMI 25.0-29.9) E66.3 Additional Codes PHQ-9 - 71184 - PHQ-9 Billing: Yes ([id number]) Assessment & Plan Assessment & Plan (1) Coronary artery disease: Comment: Stress EKG done on 12/05/2018 was negative for ischemia; myocardial perfusion studies done on 11/21/2018 revealed (+) equivocal apical ischemia but no transient ischemic dilatation is seen; gated LVEF was at 69% Code(s): I25.10 - Atherosclerotic heart disease of [place] coronary artery without angina pectoris Category: Medical Qualifiers: Coronary Disease-Associated Artery/Lesion type: upper [place] artery [place] vs. transplanted heart: upper [place] heart Associated angina: without angina Qualified Code(s): I25.10 - Atherosclerotic heart disease of [place] coronary artery without angina pectoris Plan: Patient has been asymptomatic from cardiac standpoint Continue Metoprolol ER 25 mg QD and Aspirin 81 mg QD Follow up with cardiology as scheduled (2) Pure hypercholesterolemia: Code(s): E78.00 - Pure hypercholesterolemia, unspecified Category: Medical Plan: She did not have any follow up labs done prior to her appointment today and she also has not had her fasting lipids rechecked in a while - her cholesterol levels were still elevated back in February 2022, with total cholesterol at 273 mg/dl and LDL cholesterol at 196 mg/dl Will have patient go and get her labs done GRIFFIN Reinforced low cholesterol diet Will have her recheck her labs and fasting lipids again in 6 months for follow up (3) Acquired hypothyroidism: Code(s): E03.9 - Hypothyroidism, unspecified Category: Medical Plan: Continue Levothyroxine 150 mcg QD Will recheck her TFTs GRIFFIN for follow up (4) Elevated blood pressure reading in office without diagnosis of hypertension: Code(s): R03.0 - Elevated blood-pressure reading, without diagnosis of hypertension Category: Medical Plan: Her BP in the office today is a lot better compared to her last visit Will have patient just continue monitoring her BP for now - goal is systolic BP of 120 mm or less (5) Migraine: Code(s): G43.909 - Migraine, unspecified, not intractable, without status migrainosus Category: Medical Qualifiers: Migraine type: unspecified Status migrainosus presence: without status migrainosus Intractability: not intractable Qualified Code(s): G43.909 - Migraine, unspecified, not intractable, without status migrainosus Plan: Brain MRI done in May 2020 came out normal except for scattered chronic small vessel ischemic changes within the periventricular white matter EEG, NCV and EMG done were all reportedly normal Continue Amitriptyline 50 mg Q PM States that her headaches have been mostly under control except for today She was seeing neurology for follow up but has not been seen by Dr. Brewster in a while now and is advised to call the neurology office to schedule a follow up appt with Dr. Narcisa MOYA (6) Iron deficiency anemia: Code(s): D50.9 - Iron deficiency anemia, unspecified Category: Medical Qualifiers: Iron deficiency anemia type: unspecified iron deficiency Qualified Code(s): D50.9 - Iron deficiency anemia, unspecified Plan: Continue Ferrous Sulfate 325 mg BID Will recheck her CBC for follow up Follow up with hematology (Dr. Man) as scheduled (7) Lumbar degenerative disc disease: Code(s): M51.36 - Other intervertebral disc degeneration, lumbar region Category: Medical Qualifiers: Disc-related pain type: discogenic back pain only Qualified Code(s): M51.360 - Other intervertebral disc degeneration, lumbar region with discogenic back pain only Plan: Reinforced activity and weight-lifting restrictions (+) mild lumbar spondylosis was seen on her lumbar spine MRI previously done in March 2016 (8) Cervical disc disease: Code(s): M50.90 - Cervical disc disorder, unspecified, unspecified cervical region Category: Medical Plan: CT of the cervical spine done in May 2020 revealed (+) significant multilevel spondylosis and facet arthritis of the cervical spine (9) Primary osteoarthritis of right knee: Code(s): M17.11 - Unilateral primary osteoarthritis, right knee Category: Medical Plan: Right knee x-rays done in January 2017 and January 2018 revealed (+) mild OA changes but patient feels that her knee pain has gotten a lot worse over the past couple of years Follow up with orthopedics as scheduled (10) Osteopenia: Code(s): M85.80 - Other specified disorders of bone density and structure, unspecified site Category: Medical Qualifiers: Osteopenia location: unspecified Qualified Code(s): M85.80 - Other specified disorders of bone density and structure, unspecified site Plan: BMD last done on 07/19/2023 revealed (+) Osteopenia based on the lowest T-score value of -1.5 in the total femur Her 10-YEAR FRAX score: Major osteoporotic fracture (clinical spine, forearm, hip or shoulder) 7.3%. Hip fracture 0.5% Her T score in the AP spine has declined by almost 10% from her previous BMD in December 2019 and is unchanged in her left femur She again is encouraged to continue regular exercise and physical activity as tolerated to help manage/maintain her BMD Will continue to monitor her BMD every 2 to 3 years (11) Vitamin D deficiency: Code(s): E55.9 - Vitamin D deficiency, unspecified Category: Medical Plan: Continue Vitamin D3 5000 units QD Will recheck her Vitamin D level for follow up (12) Ductal carcinoma in situ (DCIS) of left breast: Comment: Completed 5 years of oral Tamoxifen Code(s): D05.12 - Intraductal carcinoma in situ of left breast Category: Medical Plan: Follow up with oncology as scheduled for continuing surveillance Repeat mammogram last done on 08/03/2023 came out negative and she is scheduled for next mammogram on 08/08/2024 (13) Nocturnal leg cramps: Code(s): G47.62 - Sleep related leg cramps Category: Medical Plan: Continue Tizanidine 4 mg Q HS PRN (14) Split ear lobe: Code(s): 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 Category: Medical Plan: Involving the right earlobe - will refer her to surgery for further evaluation and management (15) Benign paroxysmal vertigo: Code(s): H81.10 - Benign paroxysmal vertigo, unspecified ear Category: Medical Qualifiers: Laterality: unspecified laterality Qualified Code(s): H81.10 - Benign paroxysmal vertigo, unspecified ear Plan: Continue Meclizine 25 mg PRN To consider referral again to physical therapy for canalith positioning if her symptoms persist or get worse (16) Depression: Code(s): F32.9 - Major depressive disorder, single episode, unspecified Category: Medical Qualifiers: Depression Type: major depressive disorder Major depression recurrence: recurrent Active/Remission status: currently active Major depression episode severity: unspecified Qualified Code(s): F33.9 - Major depressive disorder, recurrent, unspecified Plan: Continue Citalopram 20 mg QD She has been feeling more depressed lately since she lost her job; is currently still looking for a new job (17) Overweight (BMI 25.0-29.9): Code(s): E66.3 - Overweight Category: Medical Plan: Reinforced diet/exercise as tolerated/lose weight Plan To return in 6 months for her annual physical examination Orders: Orders Comprehensive [place]. Panel Fast 06/27/24 E78.00 - Pure hypercholesterolemia, unspecified Lipid Panel 06/27/24 E78.00 - Pure hypercholesterolemia, unspecified Free T4 (Free Thyroxine) 06/27/24 E03.9 - Hypothyroidism, unspecified Thyroid Stimulating Hormone 6 Months E03.9 - Hypothyroidism, unspecified, Z00.00 - Encounter for general adult medical examination without abnormal findings UA CC w/rflx Micro + Cult 6 Months R30.0 - Dysuria, Z00.00 - Encounter for general adult medical examination without abnormal findings Vitamin D 25-OH Total 6 Months E55.9 - Vitamin D deficiency, unspecified, Z00.00 - Encounter for general adult medical examination without abnormal findings Complete Blood Count Auto Diff 06/27/24 D64.9 - Anemia, unspecified Thyroid Stimulating Hormone 06/27/24 E03.9 - Hypothyroidism, unspecified Vitamin D 25-OH Total 06/27/24 E55.9 - Vitamin D deficiency, unspecified UA CC w/rflx Micro + Cult 06/27/24 R30.0 - Dysuria IRON PROFILE 06/27/24 D50.9 - Iron deficiency anemia, unspecified Vitamin B12 and Folate 06/27/24 E53.8 - Deficiency of other specified B group vitamins Complete Blood Count Auto Diff 6 Months D64.9 - Anemia, unspecified, Z00.00 - Encounter for general adult medical examination without abnormal findings Comprehensive [place]. Panel Fast 6 Months E78.00 - Pure hypercholesterolemia, unspecified, Z00.00 - Encounter for general adult medical examination without abnormal findings Lipid Panel 6 Months E78.00 - Pure hypercholesterolemia, unspecified, Z00.00 - Encounter for general adult medical examination without abnormal findings Free T4 (Free Thyroxine) 6 Months E03.9 - Hypothyroidism, unspecified, Z00.00 - Encounter for general adult medical examination without abnormal findings Hemoglobin A1c 6 Months R73.01 - Impaired fasting glucose, Z00.00 - Encounter for general adult medical examination without abnormal findings Referrals General Surgery Referral 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
[2024-06-27 12:33] VITALS: BP 116/86; PULSE 86; O2SAT 94; BMI 30.4
== END 2024-06-27 13:15 | disposition home or self-care (01) ==
LOC: HO.HMCH 12:28
PROVIDERS: PCP Internal Medicine; Visit Provider Internal Medicine
DX: I25.10 Atherosclerotic heart disease of native coronary artery without angina pectoris (principal); E78.00 Pure hypercholesterolemia, unspecified; F33.9 Major depressive disorder, recurrent, unspecified; E03.9 Hypothyroidism, unspecified; R03.0 Elevated blood-pressure reading, without diagnosis of hypertension; G43.909 Migraine, unspecified, not intractable, without status migrainosus; D50.9 Iron deficiency anemia, unspecified; M51.360 Other intervertebral disc degeneration, lumbar region with discogenic back pain only; M50.90 Cervical disc disorder, unspecified, unspecified cervical region; M17.11 Unilateral primary osteoarthritis, right knee; M85.80 Other specified disorders of bone density and structure, unspecified site; E55.9 Vitamin D deficiency, unspecified

== ENCOUNTER → 2024-06-27 12:27 | Outpatient (BNVA) | payer OTHER, SELFPAY | PROVIDERS: PCP Internal Medicine; Visit Provider Internal Medicine | DX: I25.10 Atherosclerotic heart disease of native coronary artery without angina pectoris (principal); E78.00 Pure hypercholesterolemia, unspecified; E03.9 Hypothyroidism, unspecified; R03.0 Elevated blood-pressure reading, without diagnosis of hypertension; G43.909 Migraine, unspecified, not intractable, without status migrainosus; D50.9 Iron deficiency anemia, unspecified; M51.360 Other intervertebral disc degeneration, lumbar region with discogenic back pain only; M50.90 Cervical disc disorder, unspecified, unspecified cervical region; M17.11 Unilateral primary osteoarthritis, right knee; M85.80 Other specified disorders of bone density and structure, unspecified site; E55.9 Vitamin D deficiency, unspecified; D05.12 Intraductal carcinoma in situ of left breast; G47.62 Sleep related leg cramps; Q17.8 Other specified congenital malformations of ear; H81.10 Benign paroxysmal vertigo, unspecified ear; F33.9 Major depressive disorder, recurrent, unspecified; E66.3 Overweight; Z68.30 Body mass index [BMI] 30.0-30.9, adult; Z79.82 Long term (current) use of aspirin; Z79.899 Other long term (current) drug therapy | CPT/HCPCS: 96127; 99212 ==

== ENCOUNTER 2024-07-10 13:20 | Outpatient (REF) | payer OTHER, SELFPAY ==
[2024-07-10 13:31] LABS: MANUAL DIFF FLAG NO
[2024-07-10 14:05] LABS: Basophils Percent Auto 0.7 % (0-2); Eosinophils Absolute Auto 0.1 X10*3/uL (0.0-0.4); Eosinophils Percent Auto 1.7 % (0-4); Hematocrit 39.3 % (37.0-47.0); Hemoglobin 13.4 g/dl (12.0-16.0); Imm Gran Abs Auto 0.01 X10*3/uL (0.00-0.03); Imm Gran Pct Auto 0.2 % (0.0-0.4); Lymphocytes Absolute Auto 0.6 X10*3/uL (1.2-4.9); Lymphocytes Percent Auto 14.5 % (20-40); Mean Corpuscular HGB Conc 34.1 g/dl (31.0-35.0); Mean Corpuscular Hemoglobin 29.1 pg (27.0-33.0); Mean Corpuscular Volume 85.4 fL (80.0-98.0); Mean Platelet Volume 10.1 fL (9.4-12.3); Monocytes Absolute Auto 0.3 X10*3/uL (0.1-1.2); Monocytes Percent Auto 6.1 % (2-11); Neutrophils Absolute Auto 3.1 x10*3/uL (2.0-8.3); Neutrophils Percent Auto 76.8 % (45-73); Platelet Count 190 X10*3/uL (160-400); Red Cell Distribution Width 13.4 % (11.0-16.0); White Blood Count 4.1 X10*3/uL (4.8-10.8)
[2024-07-10 14:26] LABS: Appearance Urine Clear; Color Urine Yellow; Glucose Urine UA Negative (Negative); Leukocyte Esterase Urine Moderate (2+) (Negative); Nitrite Urine Negative (Negative); UMIC TRIGGER UACC YES; Urine Blood Negative (Negative); Urine Ketones Negative (Negative); Urine Protein Negative (Neg-Trace)
[2024-07-10 14:47] LABS: Bacteria Urine 1+ (None Seen); Hyaline Casts Urine 0-2 /LPF (0-2); RBC Urine 0-2 /HPF (0-2); UACC Culture Trigger YES; WBC Urine 0-5 /HPF (0-5)
[2024-07-10 15:07] LABS: Alanine Aminotransferase 48 U/L (0-31); Albumin Level 4.2 g/dL (3.5-5.0); Alkaline Phosphatase 70 U/L (39-117); Anion Gap 10 (12-20); Aspartate Amino Transferase 33 U/L (5-31); Bilirubin Total 0.9 mg/dL (0.0-1.0); Blood Urea Nitrogen 15 mg/dL (9-16); Carbon Dioxide 28 mmol/L (22-29); Chloride 106 mmol/L (96-108); Cholesterol 229 mg/dL (<200); Estimated Glomerular Filt Rate > 60; Free T4 (Free Thyroxine) 1.35 ng/dL (0.71-1.85); Glucose Fasting 94 mg/dL (60-99); HDL Cholesterol 41 mg/dL (>40); Iron 52 mcg/dL (30-160); LDL Cholesterol Calculated 151 mg/dL (<100); Magnesium 2.1 mg/dL (1.6-2.6); Percent Iron Saturation 25 % (15-50); Potassium 3.8 mmol/L (3.3-5.1); Sodium 140 mmol/L (135-145); Thyroid Stimulating Hormone 0.01 uIU/mL (0.32-4.0); Total Iron Binding Capacity 208 mcg/dL (228-428); Total Protein 7.6 g/dL (6.5-8.0); Triglycerides 188 mg/dL (<150); Unsaturated Iron Binding 156 ug/dL; Vitamin D 25-OH Total 14.5 ng/mL (>30)
[2024-07-10 15:16] LABS: Vitamin B12 413 pg/mL (200-900)
== END 2024-07-10 13:21 | disposition home or self-care (01) ==
LOC: HO.LAB 13:20
PROVIDERS: PCP Internal Medicine; Visit Provider Internal Medicine
DX: Z00.00 Encounter for general adult medical examination without abnormal findings (principal); E78.00 Pure hypercholesterolemia, unspecified; E03.9 Hypothyroidism, unspecified; D50.9 Iron deficiency anemia, unspecified; E83.42 Hypomagnesemia; G47.62 Sleep related leg cramps; E53.8 Deficiency of other specified B group vitamins; E55.9 Vitamin D deficiency, unspecified
CPT/HCPCS: 36415; 80053; 80061; 81001; 82306; 82607; 82746; 83540; 83735; 84439; 84443; 85025; 87086

== ENCOUNTER 2024-07-19 15:20 | Outpatient (REF) | payer OTHER, SELFPAY ==
--- NOTE | ~2024-07-19 | US_ITS ---
EXAMINATION: US PELVIS TRANSABDOMINAL AND TRANSVAGINAL HISTORY: R10.2 - Pelvic and perineal pain COMPARISON: Comparison is made with the prior examination dated 03/28/2024. TECHNIQUE: Transabdominal and endovaginal real-time 2D najera-scale ultrasound was performed. FINDINGS: Uterus: The uterus is normal in size, measuring 8.5 x 5.7 x 6.3 cm. Myometrium has a normal echotexture. Again seen is a central fibroid measuring 3.9 x 3.0 x 3.8 cm (previously 3.6 x 3.8 0.3 cm). An additional left-sided fibroid is noted measuring 2.3 x 1.8 x 2.2 cm (previously 2.1 x 1.7 x 2.1 cm). Endometrium: The endometrial stripe measures 6 mm in thickness. Right ovary: The right ovary measures 2.2 x 1.8 x 1.7 cm. The right ovary is normal in size and echotexture. Left ovary: The left ovary is not identified. However, again seen is a tubular anechoic structure in the left adnexa which may represent a hydrosalpinx Pelvic fluid: none. US/US pelvic and transvaginal IMPRESSION: 1. Fibroid uterus as described. 2. The left ovary is not identified. Again seen is a tubular anechoic structure in the left adnexa which may represent a hydrosalpinx. Electronically signed by: Manny Chavez MD 07/20/2024 07:09 AM EDT
== END 2024-07-19 15:21 | disposition home or self-care (01) ==
LOC: HO.US 15:20
PROVIDERS: PCP Internal Medicine; Visit Provider Advanced Practice Midwife
DX: R10.2 Pelvic and perineal pain (principal)
CPT/HCPCS: 76830; 76856

== ENCOUNTER → 2024-07-19 15:22 | Outpatient (BNV) | payer OTHER, SELFPAY | PROVIDERS: PCP Internal Medicine; Visit Provider Radiology Diagnostic Radiology | DX: D25.9 Leiomyoma of uterus, unspecified (principal) | CPT/HCPCS: 76830; 76856 ==

== ENCOUNTER 2024-07-26 13:23 | Outpatient (AMB) | payer OTHER, SELFPAY ==
[2024-07-26 13:31] VITALS: BP 110/80; TEMP 36.3; BMI 30.6
--- NOTE | 2024-07-26 13:31 | MHC.OFFVIS ---
Vital Signs 07/26/24 13:31 Height 5 ft 10 in Weight 213 lb BMI 30.6 BP 110/80 Temp 97.3 F Intake Visit Reasons: U/S follow up/Skin Check Supervisor Records Change: Supervisor Records Change Present (Giovana) Allergies No Known Allergies Allergy (Verified 07/26/24 13:31) HPI Comments Details: Patient is here today for a follow up pelvic ultrasound and skin check. Previously seen with vulvar irritation and itching. She completed her cream and admits that she use it occasionally to relieve her itching. Currently is asymptomatic. She has a history of fibroids, and also history of intermittent pelvic discomfort on the left side daily. Feels like a little job does not last very long. Admits to sitting down for her job most of the day, attempts to get up and move around when possible. History of degenerative disc disease. Has an occasional right-sided sciatica. Admits to either cold or allergy symptoms today. [facility] Medical History Pelvic pain Lichen simplex chronicus Encounter to discuss test results Cervical disc disease Dysplasia of cervix, low grade (LEIDY 1) Overweight (BMI 25.0-29.9) Vitamin D deficiency Nocturnal leg cramps Osteopenia Primary osteoarthritis of right knee Lumbar degenerative disc disease Iron deficiency anemia Migraine Acquired hypothyroidism Pure hypercholesterolemia Coronary artery disease Benign paroxysmal vertigo Benign tumor of thyroid gland Depression Hypertension Surgical History Hx of colonoscopy (~06/17/15) H/O thyroidectomy Hx of tonsillectomy History of placement of ear tubes History of lumpectomy of left breast Family History Family/Other Testicle cancer Other Heart disease No family history of cancer Social History Household Members: Family and Children Housing: Apartment Are you a primary child care education coordinator to a significant other at home: No Do you presently have visiting nurse or other home services: No Alcohol intake: former Comment: pt states feels less dizzy Patient Tobacco Use Status: Never used Tobacco e-Cigarette/Vaping Use: Never Used Second Hand Smoke Exposure: Yes service: No Current occupational status: employed 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 She is . She has 3 children. Cognitive needs: No Hearing needs: No Vision needs: Yes Review of Systems Const All systems reviewed & are unremarkable except as noted in HPI and below Physical Exam Vital Signs: Last Vital Signs BP 110/80 07/26/24 13:31 BMI result Body Mass Index 30.6 Const General: cooperative, healthy appearing and no acute distress Orientation/consciousness: patient oriented x3 GI Inspection: Yes normal to inspection Palpation (GI): Soft to palpation and Other GI palpation findings present (Nontender) Rectal Exam - Female: visual inspection normal Other: Externally: skin is clear no signs of erythema, lesions, excoriations or edema. General: Yes bladder normal to palpation External Female Exam: normal appearance of the urethra Speculum Exam - Vagina: normal appearance of the vagina, normal palpation, normal vaginal discharge and vagina atrophic Speculum Exam - Cervix: normal appearance of the cervix and normal palpation Bimanual exam- vagina & uterus: normal bimanual exam, normal palpation, uterine size normal, bladder normal to palpation, normal palpation, uterine shape normal and non-tender Bimanual Exam- Adnexa, other: normal adnexae Neuro General: patient oriented x3 Results Reviewed Results Reviewed: [address] [address] Ultrasound Report Signed Patient: Ivonne Barrett MR#: [id number] : 1965 Acct:[id number] Age/Sex: 59 / F ADM Date: 07/19/24 Loc: . Attending Dr: Tali Cavanaugh CNM Ordering Physician: Tali Cavanaugh CNM Date of Service: 07/19/24 Procedure(s): US pelvic and transvaginal Accession Number(s): [id number] cc: Gerry Dias MD; Tali Cavanaugh CNM~ EXAMINATION: US PELVIS TRANSABDOMINAL AND TRANSVAGINAL HISTORY: R10.2 - Pelvic and perineal pain COMPARISON: Comparison is made with the prior examination dated 03/28/2024. TECHNIQUE: Transabdominal and endovaginal real-time 2D najera-scale ultrasound was performed. FINDINGS: Uterus: The uterus is normal in size, measuring 8.5 x 5.7 x 6.3 cm. Myometrium has a normal echotexture. Again seen is a central fibroid measuring 3.9 x 3.0 x 3.8 cm (previously 3.6 x 3.8 0.3 cm). An additional left-sided fibroid is noted measuring 2.3 x 1.8 x 2.2 cm (previously 2.1 x 1.7 x 2.1 cm). Endometrium: The endometrial stripe measures 6 mm in thickness. Right ovary: The right ovary measures 2.2 x 1.8 x 1.7 cm. The right ovary is normal in size and echotexture. Left ovary: The left ovary is not identified. However, again seen is a tubular anechoic structure in the left adnexa which may represent a hydrosalpinx Pelvic fluid: none. US/US pelvic and transvaginal IMPRESSION: 1. Fibroid uterus as described. 2. The left ovary is not identified. Again seen is a tubular anechoic structure in the left adnexa which may represent a hydrosalpinx. Electronically signed by: Manny Chavez MD 07/20/2024 07:09 AM EDT RP Dictated By: Manny Chavez MD Signed By: <Electronically signed by Manny Chavez MD in OV> 07/20/24 0709 DD/ 1535 TD/TT: 07/19/24 1547 Rack Puncher: Assessment & Plan Assessment & Plan (1) Fibroid: Code(s): D21.9 - Benign neoplasm of connective and other soft tissue, unspecified Category: Medical Plan: Counseled re: Leiomyoma: common pelvic neoplasm. Differential diagnosis-may include but not limited to- leiomyosarcoma which is a rare uterine sarcoma 3-7/100,000, difficult to distinguish from fibroids on ultrasound from uterine sarcoma's. Unlikely any single test will have a highly positive predictive value. Hysterectomy is not recommended for sole purpose of excluding malignant neoplasm. Consult for surgical exploration, medical treatment, other treatments, verses expectant management, pros and cons, risks and benefits. Expectant management follow up in 6 months, then yearly for stability. Patient prefers to proceed with expectant management. Referral to MD if indicated for level of care if indicated Report any PMB, pelvic pressure, bloating, or pain. The patient expressed understanding and agreement with the plan of care. All of her questions and concerns were addressed to the best of my ability. . (2) Pelvic pain: Code(s): R10.2 - Pelvic and perineal pain Category: Medical Plan Discussed ultrasound findings. And fibroid follow up in detail as noted above. Pelvic pain concerns addressed. Discomfort is not increasing, exam is normal, consider other options for pain origin including musculoskeletal, urinary, GI. Advised to speak with her primary care regarding further workup consider physical therapy for her back, advised repositioning standing and walking as she has been doing to continue. If any changes with pelvic pain with the increase, frequency or discomfort to call the office for her sooner follow up. Additionally skin care concerns were addressed and use medication. The patient expressed understanding and agreement with the plan of care. All of her questions and concerns were addressed to the best of my ability. This note is constructed using voice recognition software. While every effort has been made to ensure accuracy, facilities engineer errors may have been included. Orders: Orders US pelvic and transvaginal 01/14/25 D21.9 - Benign neoplasm of connective and other soft tissue, unspecified Coding Level of Care Code Est Pt Level 3 (37788) Diagnoses Fibroid D21.9 Pelvic pain R10.2
== END 2024-07-26 14:26 | disposition home or self-care (01) ==
LOC: HO.HWS 13:23
PROVIDERS: PCP Internal Medicine; Visit Provider Advanced Practice Midwife
DX: D21.9 Benign neoplasm of connective and other soft tissue, unspecified (principal); R10.2 Pelvic and perineal pain
CPT/HCPCS: 99213

== ENCOUNTER → 2024-07-26 13:23 | Outpatient (BNVA) | payer OTHER, SELFPAY | PROVIDERS: PCP Internal Medicine; Visit Provider Advanced Practice Midwife | DX: D21.9 Benign neoplasm of connective and other soft tissue, unspecified (principal); R10.2 Pelvic and perineal pain | CPT/HCPCS: 99212 ==

== ENCOUNTER 2024-08-08 12:24 | Outpatient (REF) | payer OTHER, SELFPAY | END 2024-08-08 12:25 | disposition home or self-care (01) | LOC: HO.MAMMO 12:24 | PROVIDERS: PCP Internal Medicine; Visit Provider Internal Medicine | DX: Z12.31 Encounter for screening mammogram for malignant neoplasm of breast (principal) | CPT/HCPCS: 77063; 77067 ==

== ENCOUNTER → 2024-08-08 13:15 | Outpatient (BNV) | payer OTHER, SELFPAY | PROVIDERS: PCP Internal Medicine; Visit Provider Internal Medicine | DX: Z12.31 Encounter for screening mammogram for malignant neoplasm of breast (principal) | CPT/HCPCS: 77063; 77067 ==

== ENCOUNTER 2024-09-26 12:25 | Emergency (ER) | payer OTHER, SELFPAY ==
[2024-09-26 12:36] VITALS: BP 139/86; PULSE 90; RESP 16; TEMP 36.2; O2SAT 96; BMI 31.1
--- NOTE | 2024-09-26 12:41 | ED_ITS ---
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 Related Data Previous Rx's ?Medication ?Instructions ?Recorded clotrimazole-betamethasone 1 1 appl topical BID fungal rash 7 06/23/23 %-0.05 % topical cream days #45 grams levothyroxine 150 mcg tablet 150 mcg PO DAILY 90 days #90 tabs 12/28/23 meclizine 25 mg tablet 25 mg PO TID PRN dizziness 3 0 days 12/30/23 #90 tabs citalopram 20 mg tablet 20 mg PO DAILY 90 days #90 t abs 01/31/24 ferrous sulfate 325 mg (65 mg 325 mg PO BID #60 tabs 1 04/02/23 iron) tablet (Iron (ferrous sulfate)) betamethasone dipropionate 0.05 % 1 appl topical BID 7 days #45 grams 06/26/24 topical cream metoprolol succinate 25 mg 25 mg PO DAILY 90 days #90 tabs 07/25/24 tablet,extended release 24 hr amitriptyline 25 mg tablet 50 mg (2 x 25 mg) PO DAILY 90 days 08/13/24 #180 tabs hydroxyzine HCl 25 mg tablet 25 mg PO TID PRN itching 4 days 09/26/24 #12 tabs Allergies Allergy/AdvReac Type Severity Reaction Status Date / Time No Known Allergies Allergy Verified 09/26/24 12:40 Review of Systems 2 Constitutional: Constitutional: Reports as per [facility] Past Medical History Medical History Pelvic pain Lichen simplex chronicus Encounter to discuss test results Cervical disc disease Dysplasia of cervix, low grade (LEIDY 1) Overweight (BMI 25.0-29.9) Vitamin D deficiency Nocturnal leg cramps Osteopenia Primary osteoarthritis of right knee Lumbar degenerative disc disease Iron deficiency anemia Migraine Acquired hypothyroidism Pure hypercholesterolemia Coronary artery disease Benign paroxysmal vertigo Benign tumor of thyroid gland Depression Hypertension Surgical History Hx of colonoscopy (~06/17/15) H/O thyroidectomy Hx of tonsillectomy History of placement of ear tubes History of lumpectomy of left breast Family History Family History Family/Other Testicle cancer Other Heart disease No family history of cancer Social History Social History Household Members: Family and Children Housing: Apartment Are you a primary care partner to a significant other at home: No Do you presently have visiting nurse or other home services: No Alcohol intake: former Comment: pt states feels less dizzy Patient Tobacco Use Status: Never used Tobacco e-Cigarette/Vaping Use: Never Used Second Hand Smoke Exposure: Yes Advance Directives: No Advance Directives Information Provided: Yes Do you have a plan to hurt others: No Plan service: No Current occupational status: employed 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 She is . She has 3 children. Cognitive needs: No Hearing needs: No Vision needs: Yes Physical Exam 2 Vital Signs: Vital Signs: Last Vital Signs Temp 97.9 F 09/26/24 14:22 Pulse 78 09/26/24 14:22 Resp 16 09/26/24 14:22 BP 132/80 09/26/24 14:22 Pulse Ox 95 09/26/24 14:22 O2 Del Method Room Air 09/26/24 14:22 BMI result Body Mass Index 31.1 Const: Other: Consideration of the well-appearing, alert oriented x4 ENT examination unremarkable Conjunctiva not pale, no scleral icterus Skin with urticaria over her bilateral upper arms, but she also has scattered petechiae non blanching lesions throughout her upper and lower extremities without involving her palms or into digits Otherwise ambulatory Course Course Course Narrative: 09/26/24 1242 LINWOOD Guido This is a Rapid Medical Examination (RME) performed by Ifeoma Olivera PA-C in triage. Full HPI, ROS, assessment and treatment plan per primary provider in the Main ED. Hx: 59 yo F hx eczema here for eval of diffuse body rash x1 week - began to right upper arm, now spreading. initially throught they were mosquito bites, now having red dots to extremities. 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 Plan: labs Medical Decision Making Medical Decision Making MDM Narrative: CBC without any evidence for thrombocytopenia, this does not appear to be viral related, her blood work shows leukopenia and slight elevation in LFTs , this makes me consider tick-borne illness I have also considered more serious infections such as gram-negative bacteremia, meningococcal disease however she is nonfebrile not having any headaches, photophobia etc. to suspect that as the cause Differential Diagnosis Differential Diagnoses: The differential diagnosis associated with the presentation includes Tick-borne illness, thrombocytopenia, viral infection, pest infestation, meningococcal disease, Hib, gram neg bacteremia Lab Data 09/26/24 12:47 09/26/24 12:47 Labs: Lab Results 09/26/24 Range/Units 12:47 WBC 3.8 L (4.8-10.8) X10*3/uL RBC 4.47 (4.20-5.50) X10*6/uL Hgb 13.1 (12.0-16.0) g/dl Hct 37.8 (37.0-47.0) % MCV 84.6 (80.0-98.0) fL MCH 29.3 (27.0-33.0) pg MCHC 34.7 (31.0-35.0) g/dl RDW 13.2 (11.0-16.0) % Plt Count 176 (160-400) X10*3/uL MPV 9.6 (9.4-12.3) fL Immature Gran % (Auto) 0.5 H (0.0-0.4) % Neut % (Auto) 72.4 (45-73) % Lymph % (Auto) 15.0 L (20-40) % [place] % (Auto) 8.4 (2-11) % Eos % (Auto) 2.9 (0-4) % Baso % (Auto) 0.8 (0-2) % Lymph # (Auto) 0.6 L (1.2-4.9) X10*3/uL [place] # (Auto) 0.3 (0.1-1.2) X10*3/uL Eos # (Auto) 0.1 (0.0-0.4) X10*3/uL Baso # (Auto) 0.0 (0.0-0.2) X10*3/uL Abs Immat Gran (auto) 0.02 (0.00-0.03) X10*3/uL Absolute Neuts (auto) 2.8 (2.0-8.3) x10*3/uL Absolute Nucleated RBC 0.000 (0.0-0.012) X10*3/uL Nucleated RBC % (auto) 0.0 (0.0-0.2) /100WBC Sodium 143 (135-145) mmol/L Potassium 4.5 (3.3-5.1) mmol/L Chloride 107 (96-108) mmol/L Carbon Dioxide 29 (22-29) mmol/L Anion Gap 12 (12-20) BUN 16 (9-16) mg/dL Creatinine 0.80 (0.5-1.4) mg/dL Estim Creat Clear Calc 96.1 Estimated GFR > 60 Random Glucose 98 (60-115) mg/dL Calcium 9.5 (8.4-10.2) mg/dL Magnesium 2.3 (1.6-2.6) mg/dL Total Bilirubin 0.6 (0.0-1.0) mg/dL AST 34 H (5-31) U/L ALT 47 H (0-31) U/L Alkaline Phosphatase 70 (39-117) U/L Total Protein 7.4 (6.5-8.0) g/dL Albumin 4.4 (3.5-5.0) g/dL Discharge Plan Discharge Clinical Impression: Urticaria Patient Disposition: Home, Self-Care Instructions: Urticaria (ED) Additional Instructions: Evaluated with urticaria or itchy lesions, I do not think this is infectious, but I am not providing any recommendations regarding whether you can or can not expose 2-week-old baby that has no immunity to whatever symptoms you may experience. If you want to be safe then wear a mask and whash she hands frequently, I sent some of the blood work to make sure you do not have tick- borne illness as I discussed if it is comes back positive you will get a phone call, in the meantime steroids starting tomorrow we will help with the itching and hydroxyzine to help with the itching as well, be mindful as it can make you drowsy so I am giving a few days off see you do not drive while taking this medication Spiking fevers, headaches come back to the ER Prescriptions: New hydroxyzine HCl 25 mg tablet 25 mg PO TID PRN (Reason: itching) 4 Days Qty: 12 0RF No Action meclizine 25 mg tablet 25 mg PO TID PRN (Reason: dizziness) 30 Days Qty: 90 0RF citalopram 20 mg tablet 20 mg PO DAILY 90 Days Qty: 90 1RF metoprolol succinate 25 mg tablet extended release 24 hr 25 mg PO DAILY 90 Days Qty: 90 2RF amitriptyline 25 mg tablet 50 mg PO DAILY 90 Days Qty: 180 0RF Rx Instructions: Take at 7 pm everyday - Rx from neurology (Dr. Brewster) ferrous sulfate [Iron (ferrous sulfate)] 325 mg (65 mg iron) Tablet 325 mg PO BID Qty: 60 1RF clotrimazole-betamethasone 1-0.05 % cream 1 appl topical BID 7 Days Qty: 45 1RF betamethasone dipropionate 0.05 % cream 1 appl topical BID 7 Days Qty: 45 1RF Rx Instructions: apply to the area twice a day for two weeks, then decrease to daily at bedtime three times a week, for one week, then twice a week at bedtime for one week. levothyroxine 150 mcg tablet 150 mcg PO DAILY 90 Days Qty: 90 3RF Referrals: Gerry Dias MD [Primary Care Provider, Internal Medicine] - 10 days Clinical Impression: Urticaria Stand Alone Forms: Work/School Release Print Language: Persian
[2024-09-26 12:53] LABS: Hematocrit 37.8 % (37.0-47.0); Hemoglobin 13.1 g/dl (12.0-16.0); Imm Gran Abs Auto 0.02 X10*3/uL (0.00-0.03); Imm Gran Pct Auto 0.5 % (0.0-0.4); Lymphocytes Absolute Auto 0.6 X10*3/uL (1.2-4.9); MANUAL DIFF FLAG NO; Mean Corpuscular HGB Conc 34.7 g/dl (31.0-35.0); Mean Corpuscular Hemoglobin 29.3 pg (27.0-33.0); Mean Corpuscular Volume 84.6 fL (80.0-98.0); NRBC Abs Auto 0.000 X10*3/uL (0.0-0.012); NRBC Pct Auto 0.0 /100WBC (0.0-0.2); Platelet Count 176 X10*3/uL (160-400); Red Blood Count 4.47 X10*6/uL (4.20-5.50); White Blood Count 3.8 X10*3/uL (4.8-10.8)
[2024-09-26 13:10] LABS: Alanine Aminotransferase 47 U/L (0-31); Albumin Level 4.4 g/dL (3.5-5.0); Alkaline Phosphatase 70 U/L (39-117); Anion Gap 12 (12-20); Aspartate Amino Transferase 34 U/L (5-31); Blood Urea Nitrogen 16 mg/dL (9-16); Calcium 9.5 mg/dL (8.4-10.2); Carbon Dioxide 29 mmol/L (22-29); Chloride 107 mmol/L (96-108); Creatinine Clr Calc Pharmacy 96.1; Estimated Glomerular Filt Rate > 60; Magnesium 2.3 mg/dL (1.6-2.6); Potassium 4.5 mmol/L (3.3-5.1); Sodium 143 mmol/L (135-145); Total Protein 7.4 g/dL (6.5-8.0)
[2024-09-26 14:22] VITALS: BP 132/80; PULSE 78; RESP 16; TEMP 36.6; O2SAT 95
--- OUTSIDE RECORDS SUMMARY | 2024-09-26 14:47 | XMS_ITS | Patient Health Record ---
Author Organization [facility] Address [address] [place] [address] Care Team Providers Care Field Party Manager Name Role Phone Arun ESPINOZA, [place] Primary Care Provider UnaManny Bone Unavailable [phone] Anum Man Unavailable Unavailable Reason For Referral No Information Medications Medication SIG (Take, Route, Frequency, Duration) Notes Start Date End Date Status Diclofenac Sodium 75 MG 1 tablet Orally Once a day Active Colyte w Flavor Packs 240 GM as directed Orally as directed for 1 day(s) 03/27/2015 Active Levothyroxine Sodium 150 MCG 1 tablet Or ally Once a day Active Aspir-81 81 MG 1 tablet Orally Once a day Active Tamoxifen Citrate 20 MG 1 tablet Orally Once a day Active Topiramate 50 MG 1 tablet Orally Once a day Active Citalopram Hydrobromide 20 MG 1 tablet Orally Once a day Active Metoprolol Succinate ER 25 MG 1 tablet Orally Once a day Active Suprep Bowel Prep 1 kit as directed Oral ly as directed for 1 dose 03/25/2015 Active Problems Problem Type SNOMED Code ICD Code Onset Dates Problem Status W/U Status Risk Notes Problem [id number] Encounter for screening for malignant neoplasm of colon (Z12.11) Active confirmed Problem Screening for malignant neoplasm of rectum (846584488) Encounter for screening for malignant neoplasm of rectum (Z12.12) Active confirmed Problem 53402712 Preprocedural examination (Z01.818) Active confirmed Plan Of Treatment Future Test Test Name Order Date COLONOSCOPY 03/25/2015 Insurance Providers Payer Name Payer Address Payer Phone Subscriber Number Group Number Insured Name Patient Relationship to Insured Coverage Start Date Coverage End Date [facility] [address] [facility] [phone] [id number] ARLEN PRUITT Self - patient is the insured Medical (General) History Medical History History ICD Code Breast cancer---left side 2012--XRT--see s Dr. Donovan Hunt [place],DM,CVA,Lung disease,renal dise ase Depression Migraines Arthritis-knees, ankle Palpitations-takes Metoprolol Surgical History Surgery Date(Month/Year) Lumpectomy for breast cancer on the left 2012 Thyroid surgery
[2024-09-26 15:18] VITALS: BP 132/80; PULSE 78; RESP 16; TEMP 36.6; O2SAT 95
[2024-09-27 10:24] LABS: Lyme Disease DNA PCR NOT DETECTED (NOT DETECTED)
[2024-10-11 14:48] LABS: A. Phagocytophilum Ab IgG <1:64 (<1:64); A. Phagocytophilum Ab IgM <1:20 (<1:20)
== END 2024-09-26 15:18 | disposition home or self-care (01) ==
PROVIDERS: Physician Assistant Medical; Emergency Provider Emergency Medicine; PCP Internal Medicine
DX: L50.0 Allergic urticaria (principal); Z79.899 Other long term (current) drug therapy
CPT/HCPCS: 36415; 80053; 83735; 85025; 86666; 86753; 99283; J8540

== ENCOUNTER 2024-10-31 09:29 | Outpatient (AMB) | payer OTHER, SELFPAY ==
--- NOTE | 2024-10-31 09:36 | MHC.OFFVIS ---
Vital Signs 10/31/24 09:38 Height 5 ft 10 in Weight 223 lb BMI 32.0 BP 118/77 Blood Pressure Location Rt brachial Position Sitting Pulse 77 Intake Visit Reasons: ripped ear lobe Intake Note: Patient referred by pcp Dr. Dias for assessment of split Rt ear. Patient c/o: no concerns. Denies itch, tenderness, oozing. Wash Barrel Leader Required: No Accompanied by: daughter Yazmin Allergies No Known Allergies Allergy (Verified 10/31/24 09:37) Medication List - Last Reconciled 10/31/24 by Ambrosio Haq MD amitriptyline 50 mg (2 x 25 mg) PO DAILY 90 days betamethasone dipropionate 0.05% 1 appl topical BID 7 days citalopram 20 mg PO DAILY 90 days clotrimazole-betamethasone 1-0.05 % 1 appl topical BID 7 days ferrous sulfate (Iron (ferrous sulfate)) 325 mg PO BID hydroxyzine HCl 25 mg PO TID PRN 4 days levothyroxine 150 mcg PO DAILY 90 days meclizine 25 mg PO TID PRN 30 days metoprolol succinate ER 25 mg PO DAILY 90 days HPI HPI ripped ear lobe: Details: [age] year female referred for a ripped earlobe. She says that she had been wearing heavy earrings and had a torn earlobe last year. She now wants this repaired She denies any other complaints. [facility] Medical History Torn earlobe Pelvic pain Lichen simplex chronicus Encounter to discuss test results Cervical disc disease Dysplasia of cervix, low grade (LEIDY 1) Overweight (BMI 25.0-29.9) Vitamin D deficiency Nocturnal leg cramps Osteopenia Primary osteoarthritis of right knee Lumbar degenerative disc disease Iron deficiency anemia Migraine Acquired hypothyroidism Pure hypercholesterolemia Coronary artery disease Benign paroxysmal vertigo Benign tumor of thyroid gland Depression Hypertension Surgical History Hx of colonoscopy (~06/17/15) H/O thyroidectomy Hx of tonsillectomy History of placement of ear tubes History of lumpectomy of left breast Family History Family/Other Testicle cancer Other Heart disease No family history of cancer Social History Household Members: Family and Children Housing: Apartment Are you a primary career development associate to a significant other at home: No Do you presently have visiting nurse or other home services: No Alcohol intake: former Comment: pt states feels less dizzy Patient Tobacco Use Status: Never used Tobacco e-Cigarette/Vaping Use: Never Used Second Hand Smoke Exposure: Yes service: No Current occupational status: employed 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 She is . She has 3 children. Cognitive needs: No Hearing needs: No Vision needs: Yes Review of Systems Const Denies chills and Denies fever(s) Card Denies chest pain, Denies dyspnea and Denies dyspnea on exertion Resp Denies cough, Denies dyspnea and Denies dyspnea on exertion GI Denies hematochezia and Denies change in bowel habits Denies hematuria Musc Denies back pain and Denies limited range of motion Neuro Denies focal weakness and Denies convulsions Psych Denies depression and Denies mood swings Physical Exam Const General: comfortable and no acute distress Orientation/consciousness: patient oriented x3 HEENT Other: Ripped earlobe, right side Neck Neck: Yes no lymphadenopathy Resp Auscultation: clear to auscultation bilaterally Cardio Rhythm: regular rhythm GI Palpation (GI): Soft to palpation, nontender and no guarding Neuro General: patient oriented x3 Assessment & Plan Assessment & Plan (1) Torn earlobe: Code(s): S01.319A - Laceration without foreign body of unspecified ear, initial encounter Category: Medical Plan: She has a split earlobe. She wants this repaired. I explained the technique of repair of the split earlobe with local anesthesia. I explained the risks including but not limited bleeding, infections, poor healing, as well as the benefits and alternatives. I also explained to her what to expect postoperatively. She has given consent. This will be done in the office under local anesthesia on her next visit. Coding Level of Care Code New Pt Level 3 (52368) Diagnoses Torn earlobe S01.319A
[2024-10-31 09:38] VITALS: BP 118/77; PULSE 77; BMI 32.0
--- OUTSIDE RECORDS SUMMARY | 2024-10-31 10:14 | XMS_ITS | Patient Health Record ---
Author Organization [facility] Address [address] [place] [address] Care Team Providers Care Histological Illustrator Name Role Phone Arun ESPINOZA, [place] Primary Care Provider UnaManny Bone Unavailable [phone] Anum Man Unavailable Unavailable Reason For Referral [...] Problem Status W/U Status Risk Notes Problem [id number] Encounter for screening for malignant neoplasm of colon (Z12.11) Active confirmed Problem Screening for malignant neoplasm of rectum (669850390) Encounter for screening for malignant neoplasm of rectum (Z12.12) Active confirmed Problem 94036729 Preprocedural examination (Z01.818) Active confirmed Plan Of Treatment Future Test Test Name Order Date COLONOSCOPY 03/25/2015 Insurance Providers Payer Name Payer Address Payer Phone Subscriber Number Group Number Insured Name Patient Relationship to Insured Coverage Start Date Coverage End Date [facility] [address] [facility] [phone] [id number] ARLEN PRUITT Self - patient is the insured Medical (General) History Medical History History ICD Code Breast cancer---left side 2012--XRT--see s Dr. Donovan Hunt [place],DM,CVA,Lung disease,renal dise ase Depression Migraines Arthritis-knees, ankle Palpitations-takes Metoprolol Surgical History Surgery Date(Month/Year) Lumpectomy for breast cancer on the left 2012 Thyroid surgery
== END 2024-10-31 09:48 | disposition home or self-care (01) ==
LOC: HO.HGS 09:30
PROVIDERS: PCP Internal Medicine; Visit Provider Surgery
DX: S01.319A Laceration without foreign body of unspecified ear, initial encounter (principal)
CPT/HCPCS: 99203

== ENCOUNTER → 2024-10-31 09:29 | Outpatient (BNVA) | payer OTHER, SELFPAY | PROVIDERS: PCP Internal Medicine; Visit Provider Surgery | DX: S01.311A Laceration without foreign body of right ear, initial encounter (principal); W49.04XA Ring or other jewelry causing external constriction, initial encounter | CPT/HCPCS: 99202 ==

== ENCOUNTER 2024-12-05 10:23 | Outpatient (AMB) | payer OTHER, SELFPAY ==
[2024-12-05 10:42] VITALS: BMI 32.0
--- NOTE | 2024-12-05 10:42 | MHC.OFFVIS ---
Vital Signs 12/05/24 10:42 Height 5 ft 10 in Weight 222 lb 15.996 oz BMI 32.0 Intake Visit Reasons: repair ripped ear lobe Intake Note: Office procedure: repair ripped ear lobe FFUP 12/12/2024 @ 0900am Associate Relations Specialist Required: No Accompanied by: Daughter Allergies No Known Allergies Allergy (Verified 12/05/24 10:43) Medication List - Last Reconciled 12/05/24 by Ambrosio Haq MD amitriptyline 50 mg (2 x 25 mg) PO DAILY 90 days betamethasone dipropionate 0.05% 1 appl topical BID 7 days citalopram 20 mg PO DAILY 90 days clotrimazole-betamethasone 1-0.05 % 1 appl topical BID 7 days ferrous sulfate (Iron (ferrous sulfate)) 325 mg PO BID hydroxyzine HCl 25 mg PO TID PRN 4 days levothyroxine 150 mcg PO DAILY 90 days meclizine 25 mg PO TID PRN 30 days metoprolol succinate ER 25 mg PO DAILY 90 days HPI HPI repair ripped ear lobe: Details: She is here for repair of a split earlobe. [facility] Medical History Torn earlobe Pelvic pain Lichen simplex chronicus Encounter to discuss test results Cervical disc disease Dysplasia of cervix, low grade (LEIDY 1) Overweight (BMI 25.0-29.9) Vitamin D deficiency Nocturnal leg cramps Osteopenia Primary osteoarthritis of right knee Lumbar degenerative disc disease Iron deficiency anemia Migraine Acquired hypothyroidism Pure hypercholesterolemia Coronary artery disease Benign paroxysmal vertigo Benign tumor of thyroid gland Depression Hypertension Surgical History Hx of colonoscopy (~06/17/15) H/O thyroidectomy Hx of tonsillectomy History of placement of ear tubes History of lumpectomy of left breast Family History Family/Other Testicle cancer Other Heart disease No family history of cancer Social History Household Members: Family and Children Housing: Apartment Are you a primary home health care physician to a significant other at home: No Do you presently have visiting nurse or other home services: No Alcohol intake: former Comment: pt states feels less dizzy Patient Tobacco Use Status: Never used Tobacco e-Cigarette/Vaping Use: Never Used Second Hand Smoke Exposure: Yes service: No Current occupational status: employed 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 She is . She has 3 children. Cognitive needs: No Hearing needs: No Vision needs: Yes Physical Exam Vital Signs: BMI result Body Mass Index 32.0 Office Procedures Procedure Thyroid Biopsy Procedural Documentation: Procedure: Repair of a split earlobe The patient was placed in reclining position with the head turned to the left. The area of the ear was prepped and draped with Betadine. Lidocaine 1% was used for local anesthesia. I then used a blade 15 to excise the skin off of the split area of the earlobe. I then reapposed the open edges with multiple nylon 5 0 simple interrupted sutures on both the superior and posterior aspect. There was note of good hemostasis. Steri-Strips were then applied. She tolerated the procedure well. There was minimal blood loss. 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 She tolerated procedure well. She was given wound care instructions. I will see her next week to remove her sutures. She can take Tylenol and ibuprofen p.r.n. for pain Coding Level of Care Code Procedure Only Diagnoses 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
--- OUTSIDE RECORDS SUMMARY | 2024-12-05 12:52 | XMS_ITS | Patient Health Record ---
Author Organization [facility] Address [address] [place] [address] Care Team Providers Care Nursing Program Director Name Role Phone Arun ESPINOZA, [place] Primary Care Provider UnaManny Bone Unavailable [phone] Anum Man Unavailable Unavailable Reason For Referral [...] Problem Status W/U Status Risk Notes Problem [id number] Encounter for screening for malignant neoplasm of colon (Z12.11) Active confirmed Problem Screening for malignant neoplasm of rectum (844465468) Encounter for screening for malignant neoplasm of rectum (Z12.12) Active confirmed Problem [id number] Preprocedural examination (Z01.818) Active confirmed Plan Of Treatment Future Test Test Name Order Date COLONOSCOPY 03/25/2015 Insurance Providers Payer Name Payer Address Payer Phone Subscriber Number Group Number Insured Name Patient Relationship to Insured Coverage Start Date Coverage End Date [facility] [address] [facility] [phone] [id number] ARLEN PRUITT Self - patient is the insured Medical (General) History Medical History History ICD Code Breast cancer---left side 2012--XRT--see s Dr. Donovan Hunt [place],DM,CVA,Lung disease,renal dise ase Depression Migraines Arthritis-knees, ankle Palpitations-takes Metoprolol Surgical History Surgery Date(Month/Year) Lumpectomy for breast cancer on the left 2012 Thyroid surgery
== END 2024-12-05 11:12 | disposition home or self-care (01) ==
LOC: HO.HGS 10:24
PROVIDERS: PCP Internal Medicine; Visit Provider Surgery
DX: H61.111 Acquired deformity of pinna, right ear (principal)
CPT/HCPCS: 12051

== ENCOUNTER 2024-12-12 13:04 | Outpatient (AMB) | payer OTHER, SELFPAY ==
[2024-12-12 13:11] VITALS: BMI 32.0
--- NOTE | 2024-12-12 13:11 | A.OFFVIS_ITS ---
Vital Signs 12/12/24 13:11 Height 5 ft 10 in Weight 222 lb 15.996 oz BMI 32.0 Intake Visit Reasons: s/p earlobe repair Intake Note: This patient presents for follow-up assessment status post repair split earlobe. Pt c/o; reports no complaints. Embedded Case Manager Required: No Accompanied by: Daughter Allergies No Known Allergies Allergy (Verified 12/12/24 13:12) HPI HPI s/p earlobe repair: Details: She underwent repair of a torn earlobe in the office last week. She tolerated procedure well. She denies any complaints currently. [facility] Medical History Torn earlobe Pelvic pain Lichen simplex chronicus Encounter to discuss test results Cervical disc disease Dysplasia of cervix, low grade (LEIDY 1) Overweight (BMI 25.0-29.9) Vitamin D deficiency Nocturnal leg cramps Osteopenia Primary osteoarthritis of right knee Lumbar degenerative disc disease Iron deficiency anemia Migraine Acquired hypothyroidism Pure hypercholesterolemia Coronary artery disease Benign paroxysmal vertigo Benign tumor of thyroid gland Depression Hypertension Surgical History Hx of colonoscopy (~06/17/15) H/O thyroidectomy Hx of tonsillectomy History of placement of ear tubes History of lumpectomy of left breast Family History Family/Other Testicle cancer Other Heart disease No family history of cancer Social History Household Members: Family and Children Housing: Apartment Are you a primary animal care supervisor to a significant other at home: No Do you presently have visiting nurse or other home services: No Alcohol intake: former Comment: pt states feels less dizzy Patient Tobacco Use Status: Never used Tobacco e-Cigarette/Vaping Use: Never Used Second Hand Smoke Exposure: Yes service: No Current occupational status: employed 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 She is . She has 3 children. 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 The site is well healed. I removed all his sutures. I reapplied Steri-Strips She can follow up with me on a p.r.n. basis. Coding Level of Care Code Global (11205) Diagnoses 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
== END 2024-12-12 13:38 | disposition home or self-care (01) ==
LOC: HO.HGS 13:05
PROVIDERS: PCP Internal Medicine; Visit Provider Surgery
DX: Q17.8 Other specified congenital malformations of ear (principal)
CPT/HCPCS: 99024

== ENCOUNTER → 2024-12-12 13:04 | Outpatient (BNVA) | payer OTHER, SELFPAY | PROVIDERS: PCP Internal Medicine; Visit Provider Surgery | DX: Q17.8 Other specified congenital malformations of ear (principal) | CPT/HCPCS: 99212 ==

== ENCOUNTER 2024-12-25 08:00 | Outpatient (REF) | payer OTHER, SELFPAY ==
--- NOTE | ~2024-12-25 | FL_ITS ---
EXAMINATION: Barium swallow with air. CLINICAL INDICATION: Dysphagia to oral capsules. COMPARISON: None. TECHNIQUE: Routine upright barium swallow with thick barium, barium tablet since solid food was performed. Thin barium was administered in prone lying position. FINDINGS: On oral administration of thick barium there is normal propagation bolus from the oral cavity through the pharynx, esophagus into stomach without obstruction, narrowing or stricture. No laryngeal penetration and aspiration. On oral administration of saltine crackers coated with barium paste there is normal oral mastication and propagation of bolus from the oral cavity through the pharynx, esophagus into stomach without obstruction, narrowing or stricture. No retention seen in the valleculae or piriform sinuses. On oral administration of barium tablet there is normal propagation of tablet from the oral cavity through the pharynx, esophagus into stomach no obstruction to the barium tablet seen. On placing patient prone lying and oral administration of thin barium there is normal antegrade flow from the oral cavity through the pharynx, esophagus into stomach. No intraluminal filling defect or extrinsic compression seen. On supine view there is a small sliding hiatal hernia with mild gastroesophageal reflux. FL/FL barium swallow with air IMPRESSION: Small sliding hiatal hernia with mild gastroesophageal reflux. There is no esophageal obstruction, narrowing or intraluminal filling defect. Electronically signed by: Hema Gibson MD 12/25/2024 10:41 AM EDT
--- OUTSIDE RECORDS SUMMARY | 2024-12-25 08:03 | XMS_ITS | Patient Health Record ---
Author Organization [facility] Address [address] [place] [address] Care Team Providers Care Chief Ultrasound Technologist Name Role Phone Arun ESPINOZA, [place] Primary Care Provider Manny Blunt Unavailable [phone] Anum Man Unavailable Unavailable Reason For Referral No Information Medications Medication SIG (Take, Route, Frequency, Duration) Notes Start Date End Date Status Diclofenac Sodium 75 MG 1 tablet Orally Once a day Active Colyte w Flavor Packs 240 GM as directed Orally as directed; Duration: 1 day(s) 03/27/2015 Active Levothyroxine Sodium 150 [...] 1 kit as directed Oral ly as directed; Duration: 1 dose 03/25/2015 Active Problems Problem Type SNOMED Code ICD Code Onset Dates Problem Status W/U Status Risk Notes Problem Screening for malignant neoplasm of colon (150076114) Encounter for screening for malignant neoplasm of colon (Z12.11) Active confirmed Problem Screening for malignant neoplasm of rectum (566046657) Encounter for screening for malignant neoplasm of rectum (Z12.12) Active confirmed Problem Preprocedural examination (559022707602387) Preprocedural examination (Z01.818) Active confirmed Plan Of Treatment Future Test Test Name Order Date COLONOSCOPY 03/25/2015 Insurance Providers Payer Name Payer Address Payer Phone Subscriber Number Group Number Insured Name Patient Relationship to Insured Coverage Start Date Coverage End Date [facility] [address] [place] [phone] [id number] ARLEN PRUITT Self - patient is the insured Medical (General) History Medical History History ICD Code Breast cancer---left side 2012--XRT--see s Dr. Donovan [place],DM,CVA,Lung disease,renal dise ase Depression Migraines Arthritis-knees, ankle Palpitations-takes Metoprolol Surgical History Surgery Date(Month/Year) Lumpectomy for breast cancer on the left 2012 Thyroid surgery
== END 2024-12-25 08:01 | disposition home or self-care (01) ==
LOC: HO.XRAY 08:00
PROVIDERS: PCP Internal Medicine; Visit Provider Internal Medicine Medical Oncology
DX: R13.10 Dysphagia, unspecified (principal)
CPT/HCPCS: 74221

== ENCOUNTER → 2024-12-25 08:01 | Outpatient (BNV) | payer OTHER, SELFPAY | PROVIDERS: PCP Internal Medicine; Visit Provider Radiology Diagnostic Radiology | DX: K44.9 Diaphragmatic hernia without obstruction or gangrene (principal); K21.9 Gastro-esophageal reflux disease without esophagitis | CPT/HCPCS: 74221 ==

== ENCOUNTER 2025-01-02 13:29 | Outpatient (AMB) | payer OTHER, SELFPAY ==
--- NOTE | 2025-01-02 14:01 | A.OFFPC_ITS ---
Vital Signs 01/02/25 14:02 Height 5 ft 10 in Weight 221 lb 6 oz BMI 31.8 BP 122/84 Blood Pressure Location Lt brachial Position Sitting Pulse 105 H Pulse Source Pulse Oximeter Pulse Oximetry (%) 95 Oxygen Delivery Method Room Air Intake Visit Reasons: Annual Exam Staple Side Laster Required: No Accompanied by: Self / Same As Patient Allergies No Known Allergies Allergy (Verified 01/02/25 14:34) Medication List - Last Reconciled 01/02/25 by Gerry Dias MD amitriptyline 50 mg (2 x 25 mg) PO DAILY 90 days betamethasone dipropionate 0.05% 1 appl topical BID 7 days citalopram 20 mg PO DAILY 90 days clotrimazole-betamethasone 1-0.05 % 1 appl topical BID 7 days ferrous sulfate (Iron (ferrous sulfate)) 325 mg PO BID hydroxyzine HCl 25 mg PO TID PRN 4 days levothyroxine 150 mcg PO DAILY 90 days meclizine 25 mg PO TID PRN 30 days metoprolol succinate ER 25 mg PO DAILY 90 days Tobacco use date assessed: 01/02/25 Dental Screening Dental Screen Date: 01/02/25 Did you have a dental visit in the last 12 months?: No Did you have a dental problem in the last 6 months where you did not have access to dental care?: No Was dental information given to patient?: No HPI Annual Exam HPI Details Patient comes in today for her annual physical examination States that she has been experiencing increased pain in her right shoulder for over 2 months now and she feels that this has gotten worse lately as she has been unable to lift her arm above her shoulder level for the past week or so She does not recall any recent injury or trauma to her shoulder and states that she has never had any issues with her shoulder in the past Adds that she tested positive for COVID about a month ago, and that her symptoms then were mostly recurrent coughing, mild sore throat and headaches; she denies experiencing any increased SOB at the time States that her respiratory symptoms have all mostly cleared up by now She denies any fever, headaches or dizziness Denies any chest pains No nausea/vomiting, no abdominal pain No change in bowel habits noted She denies any acute urinary symptoms Adds that she has been experiencing some increased pain in both knees as well lately Patient was not able to get her labs done prior to coming in for her appointment today She had her screening colonoscopy done back in [address] Veras and will be getting a repeat colonoscopy in 2025 (10 year recall) She had her pap smear (negative) last done a year ago on 06/28/2023 and is scheduled to be seen again for her yearly exam next 07/03/2025 She had her annual mammogram done back in July 2024 and her bone density was last done a year ago in July 2023 [facility] Medical History (Updated 01/04/25 @ 09:12 by Gerry Dias MD) Obesity (BMI 30-39.9) Torn earlobe Pelvic pain Lichen simplex chronicus Encounter to discuss test results Cervical disc disease Dysplasia of cervix, low grade (LEIDY 1) Overweight (BMI 25.0-29.9) Vitamin D deficiency Nocturnal leg cramps Osteopenia Primary osteoarthritis of right knee Lumbar degenerative disc disease Iron deficiency anemia Migraine Acquired hypothyroidism Pure hypercholesterolemia Coronary artery disease Benign paroxysmal vertigo Benign tumor of thyroid gland Depression Hypertension Surgical History Hx of colonoscopy (~06/17/15) H/O thyroidectomy Hx of tonsillectomy History of placement of ear tubes History of lumpectomy of left breast Family History Family/Other Testicle cancer Other Heart disease No family history of cancer Social History Household Members: Family and Children Housing: Apartment Are you a primary medical care administrator to a significant other at home: No Do you presently have visiting nurse or other home services: No Alcohol intake: former Comment: pt states feels less dizzy Patient Tobacco Use Status: Never used Tobacco e-Cigarette/Vaping Use: Never Used Second Hand Smoke Exposure: Yes service: No Current occupational status: employed 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 She is . She has 3 children. Cognitive needs: No Hearing needs: No Vision needs: Yes Questionnaire PHQ-9 Over the last 2 weeks, how often have you been bothered by any of the following problems? 1. Little interest or pleasure in doing things: more than half the days 2. Feeling down, depressed, or hopeless: nearly every day 3. Trouble falling or staying asleep, or sleeping too much: more than half the days 4. Feeling tired or having little energy: nearly every day 5. Poor appetite or overeating: not at all 6. Feeling bad about yourself - or that you are a failure or have let yourself or your family down: more than half the days 7. Trouble concentrating on things, such as reading the newspaper or watching television: not at all 8. Moving or speaking so slowly that other people could have noticed. Or the opposite - being so fidgety or restless that you have been moving around a lot more than usual: not at all 9. Thoughts that you would be better off or of hurting yourself in some way: not at all Total score: 12 Depression Screening Interpretation: Positive Depression Screening Follow-up: Existing condition and In treatment Depression Screening Done: Yes 16430 - PHQ-9 Billing: Yes Source: Developed by Drs. Manny Gardiner, Rashida Wynn, Livan Vigil and colleagues, with an educational slade from [facility]. Thrive Questionnaire Date Thrive assessed: 01/02/25 I am a: Patient What is your living situation today?: I have a steady place to live Within the past 12 months, did the food you bought not last and you didn't have the money to get more?: Never true Within the past 12 months, did you worry whether your food would run out before you got money to buy more?: Never true Do you have trouble paying for medicines?: Yes Do you have trouble getting transportation to medical appointments?: No Do you have trouble paying your heating and electricity bill?: Yes Do you have trouble taking care of your child, family member or friend?: No Do you have trouble with day-to-day activities such as bathing, preparing meals, shopping, managing finances, etc.?: No Are you currently unemployed and looking for a job?: No Are you interested in more education?: No Please select the resources that you would like help with: Paying for medicine and Utilities Currently or been in a relationship where the following occur: No concerns reported THRIVE Score: 1 AUDIT C Alcohol Use Questionnaire (AUDIT-C) 1. How often do you have a drink containing alcohol?: Never 3. How often do you have six or more drinks on one occasion?: Never Total Score: 0 Score Reviewed/Action Taken: Yes ALISA-7 AMB Questionnaire ALISA-7 Date ALISA - 7 assessed: 06/27/24 Feeling nervous, anxious, or on edge: 0 = Not at all Not being able to stop or control worryin = Not at all Worrying too much about different things: 2 = More than half the days Trouble relaxin = More than half the days Being so restless that it is hard to sit still: 0 = Not at all Becoming easily annoyed or irritable: 1 = Several days Feeling afraid as if something awful might happen: 0 = Not at all Total ALISA-7 score (0-4 normal; 5-9 mild; 10-14 moderate; 15-21 severe): 5 Source: Developed by Drs. Manny Gardiner, Rashida Wynn, Livan Vigil and colleagues, with an educational slade from [facility]. Review of Systems Const Denies chills, Reports fatigue, Denies fever(s), Denies headache(s) and Denies malaise Eyes Denies blurry vision, Denies change in vision, Denies irritation and Denies itchy eyes ENT Reports Normal hearing present, Denies dysphagia, Denies dizziness, Denies otalgia, Denies headache(s), Denies nasal congestion, Denies neck pain, Denies odynophagia, Denies sinus pain and Denies sore throat Card Denies chest pain, Denies rapid heart rate, Denies irregular heart rhythm, Denies palpitations and Reports dyspnea on exertion (mild) Resp Denies chest congestion, Denies cough, Reports dyspnea on exertion (mild) and Denies wheezing GI Denies abdominal pain, Denies bloating, Denies constipation, Denies dysphagia, Denies heartburn, Denies diarrhea, Denies nausea, Denies odynophagia and Denies vomiting Denies hematuria, Denies difficulty voiding, Denies dysuria, Denies urinary incontinence and Denies urinary urgency Musc Denies back pain, Reports arthralgias (in the right shoulder and on both knees - see HPI for details), Denies joint swelling, Denies muscle weakness and Denies neck pain Skin/Breast Denies breast pain, Denies breast mass, Denies change in pigmentation, Denies lesions, Denies rash and Denies unusual bruising Neuro Reports Normal hearing present, Denies dizziness, Denies headache(s) and Denies paresthesias Psych Denies anxiety and Denies depression Endo Reports fatigue and Denies palpitations Genaro/Lymph Denies easy bruising Aller/Immun Denies itchy eyes and Denies wheezing Physical exam (Primary Care) Vital Signs: Last Vital Signs Pulse 105 H 01/02/25 14:02 BP 122/84 01/02/25 14:02 Pulse Ox 95 01/02/25 14:02 Oxygen Delivery Method Room Air 01/02/25 14:02 BMI result Body Mass Index 31.8 Tobacco/Smoking Status: Tobacco use Status Tobacco use date assessed 01/02/25 01/02/25 14:10 Patient Tobacco Use Status Never used Tobacco 01/02/25 14:10 e-Cigarette/Vaping Use Never Used 01/02/25 14:10 PHQ-9: PHQ-9 Score PHQ-9: Total score 12 01/02/25 14:35 Depression Screening Interpretation: Positive Depression Screening Follow-up: Existing condition and In treatment Thrive Assessment: Date of Thrive Assessment Date Thrive assessed 06/27/24 01/02/25 14:10 Currently or been in a relationship where the following occur: No concerns reported Const General: no acute distress and alert Orientation/consciousness: patient oriented x3 HENMT Other: (+) split right ear lobe Head: Yes normocephalic and Yes atraumatic Ears: TM's normal bilaterally and EAC's normal General nose exam: No nasal discharge present Face and sinus: Yes normal facial exam and Yes sinuses nontender Teeth and gingiva: dentition normal Throat: Yes posterior oropharynx normal and Yes tonsils normal (no TP congestion) Eyes Eyelids: Yes eyelids normal Conjunctivae: conjunctivae normal Pupils: Equal, round and reactive pupils present EOM: EOMs intact bilaterally Neck Neck: Yes supple and No lymphadenopathy Thyroid: Thyroid normal Chest Chest palpation & inspection: deferred Resp Auscultation: clear to auscultation bilaterally, no rales and no wheezes Cardio Rate: regular rate Rhythm: regular rhythm Heart sounds: no murmurs GI Palpation (GI): Soft to palpation and nontender Auscultation: normal bowel sounds Rectal Exam - Female: deferred General: Yes no CVA tenderness OB/external & speculum: Deferred OB/external & speculum exam Manual OB Exam: Deferred manual OB exam Back/Spine/Pelvis Back: no CVA tenderness Cervical Spine: Cervical spine tenderness (mild) Thoracic/Lumbar Spine: lumbar spinal tenderness (mild) Skin Lesions: no lesions Rashes: no rashes Neuro General: patient oriented x3 Cranial nerves: Yes Equal, round and reactive pupils present and Yes Normal hearing present Extrem General: Yes no clubbing, cyanosis or edema Right upper extremity: shoulder/upper arm Details: tenderness Location: of the A-C joint and abnormal ROM (unable to raise arm above the shoulder level due to pain) Right lower extremity: knee Details: tenderness (mild); no swelling Left lower extremity: knee Details: tenderness; no swelling Coding Level of Care Code Est Pt Prev Care 40-64y(64178) Diagnoses Annual physical exam Z00.00 Right shoulder pain, unspecified chronicity M25.511 Chronicity: unspecified Pain in both knees, unspecified chronicity M25.561; M25.562 Chronicity: unspecified Coronary artery disease involving [place] coronary artery of [place] heart without angina pectoris I25.10 Coronary Disease-Associated Artery/Lesion type: [place] artery [place] vs. transplanted heart: [place] heart Associated angina: without angina Pure hypercholesterolemia E78.00 Acquired hypothyroidism E03.9 Elevated blood pressure reading in office without diagnosis of hypertension R03.0 Migraine without status migrainosus, not intractable, unspecified migraine type G43.909 Migraine type: unspecified Status migrainosus presence: without status migrainosus Intractability: not intractable Iron deficiency anemia, unspecified iron deficiency anemia type D50.9 Iron deficiency anemia type: unspecified iron deficiency Lumbar degenerative disc disease M51.36 Cervical disc disease M50.90 Osteopenia, unspecified location M85.80 Osteopenia location: unspecified Vitamin D deficiency E55.9 Ductal carcinoma in situ (DCIS) of left breast D05.12 Nocturnal leg cramps G47.62 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 Benign paroxysmal vertigo, unspecified laterality H81.10 Laterality: unspecified laterality Episode of recurrent major depressive disorder, unspecified depression episode severity F33.9 Depression Type: major depressive disorder Major depression recurrence: recurrent Active/Remission status: currently active Major depression episode severity: unspecified Obesity (BMI 30-39.9) E66.9 Additional Codes PHQ-9 - 00229 - PHQ-9 Billing: Yes ([id number]) Assessment & Plan Assessment & Plan (1) Annual physical exam: Code(s): Z00.00 - Encounter for general adult medical examination without abnormal findings Category: Medical Plan: Patient is instructed to get her labs done GRIFFIN to complete her annual exam today She had her screening colonoscopy done back in [address] Veras and will be getting a repeat colonoscopy in 2025 (10 year recall) She had her pap smear (negative) last done a year ago on 06/28/2023 and is scheduled to be seen again for her yearly exam next 07/03/2025 She had her annual mammogram done back in July 2024 and her bone density was last done a year ago in July 2023 (2) Right shoulder pain: Code(s): M25.511 - Pain in right shoulder Category: Medical Qualifiers: Chronicity: unspecified Qualified Code(s): M25.511 - Pain in right shoulder Plan: Advised patient that weighs on the presentation of her right shoulder symptoms, she likely has tendinitis or bursitis of the shoulder Will send her for x-rays of the right shoulder for further evaluation (3) Bilateral knee pain: Code(s): M25.561 - Pain in right knee; M25.562 - Pain in left knee Category: Medical Qualifiers: Chronicity: unspecified Qualified Code(s): M25.561 - Pain in right knee; M25.562 - Pain in left knee Plan: Will also send patient for updated x-rays of both knees for further evaluation Right knee x-rays done back in January 2017 and January 2018 revealed (+) mild OA changes - patient feels that her knee pain has gotten a lot worse over the past couple of years Have advised patient that she may need to go back and see Orthopedics but will wait and see how her x-rays come out 1st (4) Coronary artery disease: Comment: Stress EKG done on 12/05/2018 was negative for ischemia; myocardial perfusion studies done on 11/21/2018 revealed (+) equivocal apical ischemia but no transient ischemic dilatation is seen; gated LVEF was at 69% Code(s): I25.10 - Atherosclerotic heart disease of [place] coronary artery without angina pectoris Category: Medical Qualifiers: Coronary Disease-Associated Artery/Lesion type: [place] artery [place] vs. transplanted heart: [place] heart Associated angina: without angina Qualified Code(s): I25.10 - Atherosclerotic heart disease of [place] coronary artery without angina pectoris Plan: Patient has been asymptomatic from cardiac standpoint Continue Metoprolol ER 25 mg QD and Aspirin 81 mg QD Follow up with cardiology as scheduled (5) Pure hypercholesterolemia: Code(s): E78.00 - Pure hypercholesterolemia, unspecified Category: Medical Plan: She did not have any follow up labs done prior to her appointment today and she also has not had her fasting lipids rechecked in a while - her cholesterol levels were still elevated back in June 2024 although they have improved somewhat from her previous numbers in February 2022, with her total cholesterol at 229 mg/dl and LDL cholesterol at 151 mg/dl Will have patient go and get her follow up labs done GRIFFIN Reinforced low cholesterol diet Will have her recheck her labs and fasting lipids again in 6 months for follow up (6) Acquired hypothyroidism: Code(s): E03.9 - Hypothyroidism, unspecified Category: Medical Plan: Continue Levothyroxine 150 mcg QD Will recheck her TFTs GRIFFIN for follow up (7) Elevated blood pressure reading in office without diagnosis of hypertension: Code(s): R03.0 - Elevated blood-pressure reading, without diagnosis of hypertension Category: Medical Plan: Her blood pressure has been much better controlled lately and her BP in the office today is within normal/acceptable range Reinforced low sodium diet Will have patient just continue monitoring her BP for now - goal is systolic BP of 120 mm or less (8) Migraine: Code(s): G43.909 - Migraine, unspecified, not intractable, without status migrainosus Category: Medical Qualifiers: Migraine type: unspecified Status migrainosus presence: without status migrainosus Intractability: not intractable Qualified Code(s): G43.909 - Migraine, unspecified, not intractable, without status migrainosus Plan: Brain MRI done in May 2020 came out normal except for scattered chronic small vessel ischemic changes within the periventricular white matter EEG, NCV and EMG done were all reportedly normal Continue Amitriptyline 50 mg Q PM States that her headaches have been mostly under control lately She was seeing neurology for follow up but has not been seen by Dr. Brewster in over 2 years now - she is again is advised to call the neurology office to schedule a follow up appt with Dr. Brewster as soon as they can see her (9) Iron deficiency anemia: Code(s): D50.9 - Iron deficiency anemia, unspecified Category: Medical Qualifiers: Iron deficiency anemia type: unspecified iron deficiency Qualified Code(s): D50.9 - Iron deficiency anemia, unspecified Plan: Corrected - her CBC was normal when last checked in October 2024 Continue Ferrous Sulfate 325 mg BID Will continue to monitor her CBC regularly Follow up with hematology (Dr. Man) as scheduled (10) Lumbar degenerative disc disease: Code(s): M51.36 - Other intervertebral disc degeneration, lumbar region Category: Medical Plan: Reinforced activity and weight-lifting restrictions (+) mild lumbar spondylosis was seen on her lumbar spine MRI previously done in March 2016 (11) Cervical disc disease: Code(s): M50.90 - Cervical disc disorder, unspecified, unspecified cervical region Category: Medical Plan: CT of the cervical spine done in May 2020 revealed (+) significant multilevel spondylosis and facet arthritis of the cervical spine States that her neck and low back pain have been mostly manageable so far (12) Osteopenia: Code(s): M85.80 - Other specified disorders of bone density and structure, unspecified site Category: Medical Qualifiers: Osteopenia location: unspecified Qualified Code(s): M85.80 - Other specified disorders of bone density and structure, unspecified site Plan: BMD last done on 07/19/2023 revealed (+) osteopenia based on the lowest T-score v alue of -1.5 in the total femur Her 10-YEAR FRAX score: Major osteoporotic fracture (clinical spine, forearm, hip or shoulder) 7.3%. Hip fracture 0.5% Her T score in the AP spine has declined by almost 10% from her previous BMD in December 2019 and is unchanged in her left femur She again is encouraged to continue regular exercise and physical activity as tolerated to help manage/maintain her BMD Will continue to monitor her BMD every 2 to 3 years (13) Vitamin D deficiency: Code(s): E55.9 - Vitamin D deficiency, unspecified Category: Medical Plan: Continue Vitamin D3 5000 units QD Will recheck her Vitamin D level for follow up (14) Ductal carcinoma in situ (DCIS) of left breast: Comment: Completed 5 years of oral Tamoxifen Code(s): D05.12 - Intraductal carcinoma in situ of left breast Category: Medical Plan: This was initially diagnosed in August 2012 - S/P lumpectomy and she completed 5 years of Tx with Tamoxifen, from September 2012 to September 2017 Her repeat mammogram last done on 08/08/2024 came out negative Follow up with oncology as scheduled for continuing surveillance (15) Nocturnal leg cramps: Code(s): G47.62 - Sleep related leg cramps Category: Medical Plan: Continue Tizanidine 4 mg Q HS PRN (16) 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 Haq last month (November 2024) (17) Benign paroxysmal vertigo: Code(s): H81.10 - Benign paroxysmal vertigo, unspecified ear Category: Medical Qualifiers: Laterality: unspecified laterality Qualified Code(s): H81.10 - Benign paroxysmal vertigo, unspecified ear Plan: Continue Meclizine 25 mg PRN To consider referral again to physical therapy for canalith positioning if her symptoms persist or get worse (18) Depression: Code(s): F32.9 - Major depressive disorder, single episode, unspecified Category: Medical Qualifiers: Depression Type: major depressive disorder Major depression recurrence: recurrent Active/Remission status: currently active Major depression episode severity: unspecified Qualified Code(s): F33.9 - Major depressive disorder, recurrent, unspecified Plan: Continue Citalopram 20 mg QD (19) Obesity (BMI 30-39.9): Code(s): E66.9 - Obesity, unspecified Category: Medical Plan: Reinforced diet/exercise as tolerated/lose weight - she has gained some weight since her last visit Plan Follow up in 6 months Orders: Orders XR shoulder RT min 2V 01/02/25 M25.511 - Pain in right shoulder XR knee RT 4V 01/02/25 M25.561 - Pain in right knee XR knee LT 4V 01/02/25 M25.562 - Pain in left knee
[2025-01-02 14:02] VITALS: BP 122/84; PULSE 105; O2SAT 95; BMI 31.8
--- OUTSIDE RECORDS SUMMARY | 2025-01-02 19:08 | XMS_ITS | Patient Health Record ---
Author Organization [facility] Address [address] [place] [address] Care Team Providers Care Enterprise Services Manager Name Role Phone Arun ESPINOZA, [place] Primary Care Provider Manny Blunt Unavailable [phone] Anum Man Unavailable Unavailable Reason For Referral [...] Problem Screening for malignant neoplasm of colon ([id number]) Encounter for screening for malignant neoplasm of colon (Z12.11) Active confirmed Problem Screening for malignant neoplasm of rectum ([id number]) Encounter for screening for malignant neoplasm of rectum (Z12.12) Active confirmed Problem Preprocedural examination ([id number]) Preprocedural examination (Z01.818) Active confirmed Plan Of Treatment Future Test Test Name Order Date COLONOSCOPY 03/25/2015 Insurance Providers Payer Name Payer Address Payer Phone Subscriber Number Group Number Insured Name Patient Relationship to Insured Coverage Start Date Coverage End Date [facility] [address] [place] [phone] [id number] ARLEN PRUITT Self - patient is the insured Medical (General) History Medical History History ICD Code Breast cancer---left side 2012--XRT--see s Dr. Donovan [place],DM,CVA,Lung disease,renal dise ase Depression Migraines Arthritis-knees, ankle Palpitations-takes Metoprolol Surgical History Surgery Date(Month/Year) Lumpectomy for breast cancer on the left 2012 Thyroid surgery
== END 2025-01-02 14:50 | disposition home or self-care (01) ==
LOC: HO.HMCH 13:30
PROVIDERS: PCP Internal Medicine; Visit Provider Internal Medicine
DX: Z00.00 Encounter for general adult medical examination without abnormal findings (principal); M25.511 Pain in right shoulder; M25.561 Pain in right knee; M25.562 Pain in left knee; I25.10 Atherosclerotic heart disease of native coronary artery without angina pectoris; E78.00 Pure hypercholesterolemia, unspecified; E03.9 Hypothyroidism, unspecified; R03.0 Elevated blood-pressure reading, without diagnosis of hypertension; G43.909 Migraine, unspecified, not intractable, without status migrainosus; D50.9 Iron deficiency anemia, unspecified; M51.369 Other intervertebral disc degeneration, lumbar region without mention of lumbar back pain or lower extremity pain

== ENCOUNTER → 2025-01-02 13:29 | Outpatient (BNVA) | payer OTHER, SELFPAY | PROVIDERS: PCP Internal Medicine; Visit Provider Internal Medicine | DX: Z00.00 Encounter for general adult medical examination without abnormal findings (principal); M25.511 Pain in right shoulder; M25.561 Pain in right knee; M25.562 Pain in left knee; I25.10 Atherosclerotic heart disease of native coronary artery without angina pectoris; E78.00 Pure hypercholesterolemia, unspecified; E03.9 Hypothyroidism, unspecified; R03.0 Elevated blood-pressure reading, without diagnosis of hypertension; G43.909 Migraine, unspecified, not intractable, without status migrainosus; D50.9 Iron deficiency anemia, unspecified; M51.360 Other intervertebral disc degeneration, lumbar region with discogenic back pain only; M50.90 Cervical disc disorder, unspecified, unspecified cervical region; M85.80 Other specified disorders of bone density and structure, unspecified site; E55.9 Vitamin D deficiency, unspecified; D05.12 Intraductal carcinoma in situ of left breast; G47.62 Sleep related leg cramps; Q17.8 Other specified congenital malformations of ear; H81.10 Benign paroxysmal vertigo, unspecified ear; F33.9 Major depressive disorder, recurrent, unspecified; E66.9 Obesity, unspecified; Z68.31 Body mass index [BMI] 31.0-31.9, adult | CPT/HCPCS: 96127; 99396 ==

== ENCOUNTER 2025-01-05 09:03 | Outpatient (REF) | payer OTHER, SELFPAY ==
--- NOTE | ~2025-01-05 | XR_ITS ---
EXAMINATION: Bilateral knee and right shoulder. CLINICAL INDICATION: Pain. COMPARISON: Right knee 02/09/2018. TECHNIQUE: 4 views each knee and 4 views right shoulder. FINDINGS: LEFT KNEE: There is mild reduction of patellofemoral compartment joint space mild superior patellar spurring. No loose bodies, fracture or bony erosive changes. Mild suprapatellar joint effusion is suspected. RIGHT KNEE: There is mild loss of patellofemoral compartment with small superior patellar spur and mild suprapatellar joint effusion. No acute fracture, loose bodies or bony erosive changes seen. The soft tissues are normal. RIGHT SHOULDER: The glenohumeral joint space is maintained. There is mild reduction in the right AC joint space. No bony erosive changes. No visible acute fracture or dislocation. The soft tissues are normal. XR/XR knee RT 4V IMPRESSION: Mild degenerative changes in the patellofemoral compartment of both knees with minimal suprapatellar joint effusion. Mild degenerative changes right AC joint. No acute fracture or dislocation in right shoulder. Electronically signed by: Hema Gibson MD 01/07/2025 07:09 AM EDT
--- NOTE | ~2025-01-05 | XR_ITS ---
EXAMINATION: Bilateral knee and right shoulder. CLINICAL INDICATION: Pain. COMPARISON: Right knee 02/09/2018. TECHNIQUE: 4 views each knee and 4 views right shoulder. FINDINGS: LEFT KNEE: There is mild reduction of patellofemoral compartment joint space mild superior patellar spurring. No loose bodies, fracture or bony erosive changes. Mild suprapatellar joint effusion is suspected. RIGHT KNEE: There is mild loss of patellofemoral compartment with small superior patellar spur and mild suprapatellar joint effusion. No acute fracture, loose bodies or bony erosive changes seen. The soft tissues are normal. RIGHT SHOULDER: The glenohumeral joint space is maintained. There is mild reduction in the right AC joint space. No bony erosive changes. No visible acute fracture or dislocation. The soft tissues are normal. XR/XR knee LT 4V IMPRESSION: Mild degenerative changes in the patellofemoral compartment of both knees with minimal suprapatellar joint effusion. Mild degenerative changes right AC joint. No acute fracture or dislocation in right shoulder. Electronically signed by: Hema Gibson MD 01/07/2025 07:09 AM EDT
--- NOTE | ~2025-01-05 | XR_ITS ---
EXAMINATION: Bilateral knee and right shoulder. CLINICAL INDICATION: Pain. COMPARISON: Right knee 02/09/2018. TECHNIQUE: 4 views each knee and 4 views right shoulder. FINDINGS: LEFT KNEE: There is mild reduction of patellofemoral compartment joint space mild superior patellar spurring. No loose bodies, fracture or bony erosive changes. Mild suprapatellar joint effusion is suspected. RIGHT KNEE: There is mild loss of patellofemoral compartment with small superior patellar spur and mild suprapatellar joint effusion. No acute fracture, loose bodies or bony erosive changes seen. The soft tissues are normal. RIGHT SHOULDER: The glenohumeral joint space is maintained. There is mild reduction in the right AC joint space. No bony erosive changes. No visible acute fracture or dislocation. The soft tissues are normal. XR/XR shoulder RT min 2V IMPRESSION: Mild degenerative changes in the patellofemoral compartment of both knees with minimal suprapatellar joint effusion. Mild degenerative changes right AC joint. No acute fracture or dislocation in right shoulder. Electronically signed by: Hema Gibson MD 01/07/2025 07:09 AM EDT
[2025-01-05 09:15] LABS: MANUAL DIFF FLAG NO
[2025-01-05 09:54] LABS: Hematocrit 42.8 % (37.0-47.0); Hemoglobin 14.2 g/dl (12.0-16.0); Imm Gran Abs Auto 0.01 X10*3/uL (0.00-0.03); Imm Gran Pct Auto 0.3 % (0.0-0.4); Lymphocytes Absolute Auto 0.5 X10*3/uL (1.2-4.9); Mean Corpuscular HGB Conc 33.2 g/dl (31.0-35.0); Mean Corpuscular Hemoglobin 28.6 pg (27.0-33.0); Mean Corpuscular Volume 86.1 fL (80.0-98.0); NRBC Abs Auto 0.000 X10*3/uL (0.0-0.012); NRBC Pct Auto 0.0 /100WBC (0.0-0.2); Platelet Count 201 X10*3/uL (160-400); Red Blood Count 4.97 X10*6/uL (4.20-5.50); White Blood Count 3.6 X10*3/uL (4.8-10.8)
[2025-01-05 10:26] LABS: Appearance Urine Cloudy; Glucose Urine UA Negative (Negative); PH 5.5 (5.0-9.0); Specific Gravity - Urine 1.015 (1.005-1.025); UMIC TRIGGER UACC YES
[2025-01-05 10:30] LABS: UACC Culture Trigger YES
[2025-01-05 10:41] LABS: Alanine Aminotransferase 66 U/L (0-31); Albumin Level 4.6 g/dL (3.5-5.0); Alkaline Phosphatase 71 U/L (39-117); Anion Gap 12 (12-20); Aspartate Amino Transferase 41 U/L (5-31); Blood Urea Nitrogen 16 mg/dL (9-16); Calcium 9.3 mg/dL (8.4-10.2); Carbon Dioxide 28 mmol/L (22-29); Chloride 106 mmol/L (96-108); Cholesterol 231 mg/dL (<200); Estimated Glomerular Filt Rate > 60; HDL Cholesterol 39 mg/dL (>40); Potassium 4.4 mmol/L (3.3-5.1); Sodium 142 mmol/L (135-145); Total Protein 7.7 g/dL (6.5-8.0); Triglycerides 198 mg/dL (<150)
[2025-01-05 10:48] LABS: Free T4 (Free Thyroxine) 1.02 ng/dL (0.71-1.85); Thyroid Stimulating Hormone 10.22 uIU/mL (0.32-4.0)
== END 2025-01-05 09:04 | disposition home or self-care (01) ==
LOC: HO.LAB 09:03
PROVIDERS: PCP Internal Medicine; Visit Provider Internal Medicine
DX: Z00.00 Encounter for general adult medical examination without abnormal findings (principal); M25.511 Pain in right shoulder; M25.562 Pain in left knee; M25.561 Pain in right knee; D64.9 Anemia, unspecified; E78.00 Pure hypercholesterolemia, unspecified; R73.01 Impaired fasting glucose; E03.9 Hypothyroidism, unspecified; E55.9 Vitamin D deficiency, unspecified
CPT/HCPCS: 36415; 73030; 73564; 80053; 80061; 81001; 82306; 83036; 84439; 84443; 85025; 87086

== ENCOUNTER → 2025-01-05 09:20 | Outpatient (BNV) | payer OTHER, SELFPAY | PROVIDERS: PCP Internal Medicine; Visit Provider Radiology Diagnostic Radiology | DX: M17.0 Bilateral primary osteoarthritis of knee (principal); M19.011 Primary osteoarthritis, right shoulder | CPT/HCPCS: 73030; 73564 ==

== ENCOUNTER → 2025-01-10 11:08 | Outpatient (BNVA) | payer OTHER, SELFPAY | PROVIDERS: PCP Internal Medicine; Visit Provider Surgery | DX: Z48.1 Encounter for planned postprocedural wound closure (principal) | CPT/HCPCS: 99211 ==

== ENCOUNTER 2025-01-14 10:24 | Outpatient (REF) | payer OTHER, SELFPAY ==
--- NOTE | ~2025-01-14 | US_ITS ---
CLINICAL HISTORY: D21.9 - Benign neoplasm of connective and other soft tissue, unspecified Ultrasound of the female pelvis Comparison: US/SR - US PELVIS TRANSABDOMINAL AND TRANSVAGINAL - 07/19/24 15:34 EDT Technique: Grayscale ultrasound with assistance of color Doppler. Transabdominal scanning performed for overall anatomy. Transvaginal scanning performed for better anatomic delineation. Findings: The uterus and adnexa are not well seen transabdominally due to limited acoustic window and nearly decompressed urinary bladder, they are mostly evaluated on transvaginal sonogram. Anteverted uterus measures 8.4 x 5.0 x 6.6 cm. Heterogeneous myometrium, 3 fibroids are seen: Centrally located fibroid probably submucosal 3.6 x 3.5 x 3.3 cm, previously 3.9 x 3.0 x 3.8 cm. 0.8 x 0.7 x 0.7 cm intramural fibroid in the left uterine body, not seen before. Subserosal fibroid left posterior body 1.9 x 1.9 x 1.9 cm, previously 2.3 x 1.8 x 2.2 cm. The endometrium is not seen. Normal cervix. Normal right ovary, 2.1 x 1.6 x 1.3 cm. No abnormal vascular flow. Left ovary is not definitely seen, similar cystic tubular structure in the left adnexa. No free fluid. Impression: 1. Uterine fibroids. 2. Nonvisualization of endometrium and right ovary. 3. Persistent cystic tubular structure of the left adnexa, likely hydrosalpinx. This document has been electronically signed by: Geri Alonso MD on 01/14/2025 15:18:28
--- OUTSIDE RECORDS SUMMARY | 2025-01-14 12:27 | XMS_ITS | Patient Health Record ---
Author Organization [facility] Address [address] [place] [address] Care Team Providers Care Floor Specialist Name Role Phone Arun ESPINOZA, [place] Primary Care Provider Manny Blunt Unavailable [phone] Anum Man Unavailable Unavailable Reason For Referral [...] Problem Screening for malignant neoplasm of colon (684196469) Encounter for screening for malignant neoplasm of colon (Z12.11) Active confirmed Problem Screening for malignant neoplasm of rectum (791981470) Encounter for screening for malignant neoplasm of rectum (Z12.12) Active confirmed Problem Preprocedural examination (030964097205001) Preprocedural examination (Z01.818) Active confirmed Plan Of Treatment Future Test Test Name Order Date COLONOSCOPY 03/25/2015 Insurance Providers Payer Name Payer Address Payer Phone Subscriber Number Group Number Insured Name Patient Relationship to Insured Coverage Start Date Coverage End Date [facility] [address] [place] [phone] [id number] ARLEN PRUITT Self - patient is the insured Medical (General) History Medical History History ICD Code Breast cancer---left side 2012--XRT--see s Dr. Donovan Parkeries [place],DM,CVA,Lung disease,renal dise ase Depression Migraines Arthritis-knees, ankle Palpitations-takes Metoprolol Surgical History Surgery Date(Month/Year) Lumpectomy for breast cancer on the left 2012 Thyroid surgery
== END 2025-01-14 10:25 | disposition home or self-care (01) ==
LOC: HO.US 10:24
PROVIDERS: PCP Internal Medicine; Visit Provider Advanced Practice Midwife
DX: D21.9 Benign neoplasm of connective and other soft tissue, unspecified (principal)
CPT/HCPCS: 76830; 76856

== ENCOUNTER → 2025-01-14 10:26 | Outpatient (BNV) | payer OTHER, SELFPAY | PROVIDERS: PCP Internal Medicine; Visit Provider Radiology Diagnostic Radiology | DX: D25.9 Leiomyoma of uterus, unspecified (principal); N83.292 Other ovarian cyst, left side | CPT/HCPCS: 76830; 76856 ==

== ENCOUNTER 2025-01-23 15:45 | Outpatient (AMB) | payer OTHER, SELFPAY ==
--- NOTE | 2025-01-23 15:57 | MHC.OFFVIS ---
Vital Signs 01/23/25 15:58 Height 5 ft 10 in BP 122/84 Blood Pressure Location Lt brachial Position Sitting Intake Visit Reasons: Ultra sound follow up Intake Note: vaginal itching Slurry Tank Tender Required: No Allergies No Known Allergies Allergy (Verified 01/23/25 16:00) Medication List - Last Reconciled 01/23/25 by Jody Sorenson LPN amitriptyline 50 mg (2 x 25 mg) PO DAILY 90 days betamethasone dipropionate 0.05% 1 appl topical BID 7 days citalopram 20 mg PO DAILY 90 days clotrimazole-betamethasone 1-0.05 % 1 appl topical BID 7 days ferrous sulfate (Iron (ferrous sulfate)) 325 mg PO BID levothyroxine 150 mcg PO DAILY 90 days meclizine 25 mg PO TID PRN 30 days metoprolol succinate ER 25 mg PO DAILY 90 days Is last menstrual period known: No Post menopausal: Yes HPI Comments Details: Patient is here today for a follow up pelvic ultrasound results. History of multiple left side fibroids and left hydrosalpinx, she experiencing occasional left-sided discomfort. Additionally she has vaginal itch and irritation. [facility] Medical History Vulvar itching Obesity (BMI 30-39.9) Torn earlobe Pelvic pain Lichen simplex chronicus Encounter to discuss test results Cervical disc disease Dysplasia of cervix, low grade (LEIDY 1) Overweight (BMI 25.0-29.9) Vitamin D deficiency Nocturnal leg cramps Osteopenia Primary osteoarthritis of right knee Lumbar degenerative disc disease Iron deficiency anemia Migraine Acquired hypothyroidism Pure hypercholesterolemia Coronary artery disease Benign paroxysmal vertigo Benign tumor of thyroid gland Depression Hypertension Surgical History Hx of colonoscopy (~06/17/15) H/O thyroidectomy Hx of tonsillectomy History of placement of ear tubes History of lumpectomy of left breast Family History Family/Other Testicle cancer Other Heart disease No family history of cancer Social History Household Members: Family and Children Housing: Apartment Are you a primary home care nurse to a significant other at home: No Do you presently have visiting nurse or other home services: No Alcohol intake: former Comment: pt states feels less dizzy Patient Tobacco Use Status: Never used Tobacco e-Cigarette/Vaping Use: Never Used Second Hand Smoke Exposure: Yes service: No Current occupational status: employed 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 She is . She has 3 children. Cognitive needs: No Hearing needs: No Vision needs: Yes Female Reproductive History Menstrual Menopause type: natural Review of Systems Const All systems reviewed & are unremarkable except as noted in HPI and below Physical Exam Vital Signs: Last Vital Signs BP 122/84 01/23/25 15:58 Const General: cooperative, healthy appearing and no acute distress Orientation/consciousness: patient oriented x3 GI Inspection: Yes normal to inspection Palpation (GI): Soft to palpation and Other GI palpation findings present (Nontender) Rectal Exam - Female: visual inspection normal General: Yes bladder normal to palpation External Female Exam: normal appearance of the urethra, erythema, external swelling and other (Scratch excoriated markings bilateral labia, right labia small tear) Speculum Exam - Vagina: normal appearance of the vagina, normal palpation, abnormal vaginal discharge (Yellow green) and vagina atrophic Speculum Exam - Cervix: normal appearance of the cervix and normal palpation Bimanual exam- vagina & uterus: normal bimanual exam, normal palpation, uterine size normal, bladder normal to palpation, normal palpation, uterine shape normal and non-tender Bimanual Exam- Adnexa, other: normal adnexae Neuro General: patient oriented x3 Results Reviewed Results Reviewed: [address] [address] Ultrasound Report Signed Patient: Ivonne Barrett MR#: [id number] : 1965 Acct:[id number] Age/Sex: 59 / F ADM Date: 01/14/25 Loc: HO.US Attending Dr: Tali Cavanaugh CNM Ordering Physician: Tali Cavanaugh CNM Date of Service: 01/14/25 Procedure(s): US pelvic and transvaginal Accession Number(s): [id number] cc: Gerry Dias MD; Tali Cavanaugh CNM~ Reason for Exam: D21.9 - Benign neoplasm of connective and other soft tissue, unspecified CLINICAL HISTORY: D21.9 - Benign neoplasm of connective and other soft tissue, unspecified Ultrasound of the female pelvis Comparison: US/SR - US PELVIS TRANSABDOMINAL AND TRANSVAGINAL - 07/19/24 15:34 EDT Technique: Grayscale ultrasound with assistance of color Doppler. Transabdominal scanning performed for overall anatomy. Transvaginal scanning performed for better anatomic delineation. Findings: The uterus and adnexa are not well seen transabdominally due to limited acoustic window and nearly decompressed urinary bladder, they are mostly evaluated on transvaginal sonogram. Anteverted uterus measures 8.4 x 5.0 x 6.6 cm. Heterogeneous myometrium, 3 fibroids are seen: Centrally located fibroid probably submucosal 3.6 x 3.5 x 3.3 cm, previously 3.9 x 3.0 x 3.8 cm. 0.8 x 0.7 x 0.7 cm intramural fibroid in the left uterine body, not seen before. Subserosal fibroid left posterior body 1.9 x 1.9 x 1.9 cm, previously 2.3 x 1.8 x 2.2 cm. The endometrium is not seen. Normal cervix. Normal right ovary, 2.1 x 1.6 x 1.3 cm. No abnormal vascular flow. Left ovary is not definitely seen, similar cystic tubular structure in the left adnexa. No free fluid. Impression: 1. Uterine fibroids. 2. Nonvisualization of endometrium and right ovary. 3. Persistent cystic tubular structure of the left adnexa, likely hydrosalpinx. 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 Differential diagnosis-may include but not limited to- leiomyosarcoma which is a rare uterine sarcoma 3-7/100,000, difficult to distinguish from fibroids on ultrasound from uterine sarcoma's. Unlikely any single test will have a highly positive predictive value. Hysterectomy is not recommended for sole purpose of excluding malignant neoplasm. Consult for surgical exploration, medical treatment, other treatments, verses expectant management, pros and cons, risks and benefits. Expectant management follow up in 6 months, then yearly for stability. Patient prefers to proceed with expectant management. Referral to MD if indicated for level of care if indicated Report any PMB, pelvic pressure, bloating, or pain. The patient expressed understanding and agreement with the plan of care. All of her questions and concerns were addressed to the best of my ability. (2) Vulvar itching: Code(s): L29.2 - Pruritus vulvae Category: Medical Plan Instructions: Clean with warm water, no soaps, scented products. Use a cool cloth to the area several times a day if swollen and/or uncomfortable. Wear loose, cotton underclothes, avoid tight outer clothing. Air when possible. Rx sent in, await final pending results for any changes in the plan of care. Call the office if there is no improvement in 24-48hrs., or if worsening symptoms. The patient expressed understanding and agreement with the plan of care. All of her questions and concerns were addressed to the best of my ability. This note is constructed using voice recognition software. While every effort has been made to ensure accuracy, cause analyst errors may have been included. Orders: Orders US pelvic and transvaginal 07/15/25 D21.9 - Benign neoplasm of connective and other soft tissue, unspecified Bacterial Vaginosis Panel Today Z11.3 - Encounter for screening for infections with a predominantly sexual mode of transmission Medications: Refilled clotrimazole-betamethasone 1-0.05 % 1 appl topical BID 7 days 45 grams 1RF fungal rash Coding Level of Care Code Est Pt Level 3 (00634) Diagnoses Fibroid D21.9 Vulvar itching L29.2
[2025-01-23 15:58] VITALS: BP 122/84
--- OUTSIDE RECORDS SUMMARY | 2025-01-23 18:47 | XMS_ITS | Patient Health Record ---
Author Organization [facility] Address [address] [place] [address] Care Team Providers Care Assistant Sales Manager Name Role Phone Arun ESPINOZA, [place] Primary Care Provider Manny Blunt Unavailable [phone] Anum Man Unavailable Unavailable Reason For Referral [...] Problem Screening for malignant neoplasm of colon (251932811) Encounter for screening for malignant neoplasm of colon (Z12.11) Active confirmed Problem Screening for malignant neoplasm of rectum (296523965) Encounter for screening for malignant neoplasm of rectum (Z12.12) Active confirmed Problem Preprocedural examination (367151787595046) Preprocedural examination (Z01.818) Active confirmed Plan Of Treatment Future Test Test Name Order Date COLONOSCOPY 03/25/2015 Insurance Providers Payer Name Payer Address Payer Phone Subscriber Number Group Number Insured Name Patient Relationship to Insured Coverage Start Date Coverage End Date [facility] [address] [place] [phone] [id number] ARLEN PRUITT Self - patient is the insured Medical (General) History Medical History History ICD Code Breast cancer---left side 2012--XRT--see s Dr. Donovan Parkeries [place],DM,CVA,Lung disease,renal dise ase Depression Migraines Arthritis-knees, ankle Palpitations-takes Metoprolol Surgical History Surgery Date(Month/Year) Lumpectomy for breast cancer on the left 2012 Thyroid surgery
== END 2025-01-23 16:48 | disposition home or self-care (01) ==
LOC: HO.HWS 15:46
PROVIDERS: PCP Internal Medicine; Visit Provider Advanced Practice Midwife
DX: D21.9 Benign neoplasm of connective and other soft tissue, unspecified (principal); L29.2 Pruritus vulvae
CPT/HCPCS: 99213

== ENCOUNTER 2025-01-23 15:45 | Outpatient (REF) | payer OTHER, SELFPAY | END 2025-01-23 15:46 | disposition home or self-care (01) | LOC: HO.LNP 15:45 | PROVIDERS: PCP Internal Medicine; Visit Provider Advanced Practice Midwife | DX: L29.2 Pruritus vulvae (principal); Z11.3 Encounter for screening for infections with a predominantly sexual mode of transmission | CPT/HCPCS: 99212 ==

== ENCOUNTER 2025-01-24 12:51 | Outpatient (REF) | payer OTHER, SELFPAY ==
[2025-01-24 15:33] LABS: Bacterial Vaginosis PCR POSITIVE (Negative); Candida Group PCR NOT DETECTED (Not Detect); Candida glab krusei PCR NOT DETECTED (Not Detect); Trichomonas vaginalis PCR NOT DETECTED (Not Detect)
--- OUTSIDE RECORDS SUMMARY | 2025-01-24 15:58 | XMS_ITS | Patient Health Record ---
Author Organization [facility] Address [address] [place] [address] Care Team Providers Care Fruit Grader Operator Name Role Phone Arun ESPINOZA, [place] Primary Care Provider Manny Blunt Unavailable [phone] Anum Man Unavailable Unavailable Reason For Referral [...] Problem Screening for malignant neoplasm of colon (683652426) Encounter for screening for malignant neoplasm of colon (Z12.11) Active confirmed Problem Screening for malignant neoplasm of rectum (056948141) Encounter for screening for malignant neoplasm of rectum (Z12.12) Active confirmed Problem Preprocedural examination (030044408570783) Preprocedural examination (Z01.818) Active confirmed Plan Of Treatment Future Test Test Name Order Date COLONOSCOPY 03/25/2015 Insurance Providers Payer Name Payer Address Payer Phone Subscriber Number Group Number Insured Name Patient Relationship to Insured Coverage Start Date Coverage End Date [facility] [address] [place] [phone] [id number] ARLEN PRUITT Self - patient is the insured Medical (General) History Medical History History ICD Code Breast cancer---left side 2012--XRT--see s Dr. Donovan Parkeries [place],DM,CVA,Lung disease,renal dise ase Depression Migraines Arthritis-knees, ankle Palpitations-takes Metoprolol Surgical History Surgery Date(Month/Year) Lumpectomy for breast cancer on the left 2012 Thyroid surgery
== END 2025-01-24 12:52 | disposition home or self-care (01) ==
LOC: HO.LNP 12:51
PROVIDERS: Visit Provider Advanced Practice Midwife
DX: Z20.2 Contact with and (suspected) exposure to infections with a predominantly sexual mode of transmission (principal)
CPT/HCPCS: 81515